=== PATIENT | female | born 1950 | race Caucasian/White ===

== ENCOUNTER 2018-07-26 11:26 | Inpatient (IN) ==
[2018-07-26 12:59] LABS: Basophils % 0.4 %; Eosinophils # 0.1 K/mcL (0.0-0.6); Eosinophils % 0.7 %; Hematocrit 35.3 % (35.3-44.9); Hemoglobin 12.2 g/dL (11.5-15.4); Immature Granulocytes % 0.4 % (0-4); Lymphocytes # 1.6 K/mcL (0.6-4.6); Lymphocytes % 16.2 %; Mean Corpuscular HGB Conc 34.6 g/dL (31.6-35.5); Mean Corpuscular Hemoglobin 31.4 pg (28.0-33.3); Monocytes # 0.8 K/mcL (0.0-1.3); Monocytes % 7.5 %; Neutrophils # 7.5 K/mcL (1.6-8.9); Platelet Count 218 K/mcL (140-400); Red Blood Count 3.88 M/mcL (3.82-4.97); Red Cell Distribution Width 13.5 % (11.5-14.5); Segmented Neutrophils % 74.8 %
[2018-07-26 13:19] LABS: BUN/Creatinine Ratio 45 (6-26); Blood Urea Nitrogen 30 mg/dL (8-23); Calcium 8.3 mg/dL (8.6-10.3); Carbon Dioxide 23 mEq/L (23-29); Chloride 108 mEq/L (98-107); Glucose 100 mg/dL (70-105); Lipase 12 Units/L (11-82); Osmolality,Calculated 290 (280-300); Potassium 4.1 mEq/L (3.5-5.1); Sodium 137 mEq/L (136-145); eGFR For Non-African Americans > 60 (> 60)
--- NOTE | 2018-07-26 13:57 | Emergency Department Note ---
Disposition Clinical Impression: Lower gastrointestinal hemorrhage Disposition: Admitted As Inpatient Condition: Fair Referrals: Xavier Alvarez DO [Primary Care Provider] - Forms: ED Satisfaction Letter Time of Disposition: 16:07 GI Bleed HPI - General Chief complaint: ED GI Bleed Stated complaint: GI Bleed Time Seen by Provider: 07/26/18 11:49 Source: patient Mode of arrival: ambulatory Limitations: no limitations Nursing Notes Reviewed: Yes Vital Signs Reviewed: Yes - History of Present Illness HPI Narrative: 67-year-old male presented emergency department with GI bleed. Patient states that she in January had a colonoscopy where they found possible precancerous lesions in the ileocecal junction. Due to this she was transferred to the surgeon Dr. Francois who is going to a partial colectomy that is planned for next week. Patient states this morning she was having a bowel movement had a normal bowel movement and afterwards her abdomen started to "churning" then she went back to the restroom and had a very large diarrhea bowel movement that had bright red blood. She had that time went to the shower was taking a shower became lightheaded said Meenak[place] knows that there was more blood coming out of her rectum. It is unsure exactly how much was said it was quite a bit and during the whole floor of the shower red. Patient says that she does feel mildly weak but otherwise feels no other pain. She has no abdominal pain showing one episode of vomiting is nonbilious nonbloody. She has never had any rectal bleeding prior to this event. Otherwise there is no other complaints including fevers, chills, nausea, headache, blurry vision, neck pain, back pain, abdominal pain, pain with urination, pain or tingling going down the arms or legs or generalized weakness. - Related Data Home Medications Medication Instructions Recorded Confirmed Clopidogrel Bisulfate [Plavix] 75 mg PO DAILY 10/26/15 07/26/18 Levothyroxine [Synthroid] 125 mcg PO QAM 10/26/15 07/26/18 Potassium Chloride [K-Tab ER] 20 meq PO BID 10/26/15 07/26/18 Ergocalciferol (VITAMIN D2) 400 unit PO DAILY 03/27/16 07/26/18 [Vitamin D] Lovastatin 10 mg PO DAILY 11/30/17 07/26/18 Losartan/HCTZ [Hyzaar 50-12.5 1 each PO DAILY 07/26/18 07/26/18 Tablet] Allergies Allergy/AdvReac Type Severity Reaction Status Date / Time No Known Allergies Allergy Verified 11/30/17 22:01 All systems ED: reviewed and negative except as stated. Review of Systems: As Per HPI Past Medical History - Past Medical History Attestation: Yes The following information was validated with the patient. Source: patient Medical history: Reports: cancer, COPD, GERD, hyperlipidemia, hypertension, thyroid disease, TIA Surgical history: Reports: , cholecystectomy, colectomy, herniorrhaphy, orthopedic, other, other Psychiatric history: Reports: no psych history DIRECTOR OF BUSINESS DEVELOPMENT history: Reports: bilateral tubal ligation - Social History Smoking Status: Current every day smoker Smokeless Tobacco Status: No Alcohol use: Reports: none Drug use: Reports: none Physical Exam - General Limitations: no limitations General appearance: alert - Head Head exam: atraumatic, normocephalic, normal inspection - Eye Eye exam: Present: normal appearance, PERRL, EOMI - ENT ENT exam: normal exam, normal oropharynx, mucous membranes moist - Neck Neck exam: Present: normal inspection, full ROM, trachea midline - Chest Chest inspection: Present: normal inspection, symmetric chest wall rise - Respiratory Respiratory exam: Present: normal lung sounds bilaterally - Cardiovascular Cardiovascular exam: Present: regular rate, normal rhythm, normal heart sounds - Abdominal Exam Abdominal exam: Present: soft, Non-Tender, normal bowel sounds. Absent: tenderness, distention, guarding, rebound, rigidity - Extremities Exam Extremities exam: Present: normal inspection, full ROM. Absent: tenderness, pe uyen edema - Back Exam Back exam: Present: normal inspection, full ROM. Absent: tenderness, CVA tenderness (R), CVA tenderness (L) - Neurological Exam Neurological exam: Present: alert, oriented X3 - Skin Skin exam: Present: warm, dry, intact, normal color Course Course Narrative: We will get basic labs including CBC, BMP as well as a lipase we will do Hemoccult. This seems to be lower GI bleed. She is not any abdominal pain so will not get any advanced imaging. Vital Signs Temperature 98.7 F 07/26/18 11:44 Pulse Rate 62 07/26/18 11:44 Respiratory Rate 20 07/26/18 11:44 Blood Pressure 106/42 07/26/18 11:44 O2 Sat by Pulse Oximetry 100 07/26/18 11:44 Temperature 98.7 F 07/26/18 11:44 Pulse Rate 66 07/26/18 14:27 Respiratory Rate 14 07/26/18 14:27 Blood Pressure 92/46 07/26/18 14:27 O2 Sat by Pulse Oximetry 99 07/26/18 14:27 Oxygen Delivery Oxygen Delivery Nasal Cannula GI Bleed - [facility] Narrative Medical decision making narrative: Patient's hemoglobin is stable at 12. She did have positive Hemoccult. All other labs are within normal minuses probably lower GI bleed. I spoke with the surgeon Dr. Francois who is supposed to do surgery on her in the next few weeks. His nurse practitioner came down and saw the patient at bedside and they recommended admitting to the hospital service and consult in them. And able move up the patient's surgery to be sooner. They are worried that this is possibly neurogenic. The patient stated to them that she did have a full syncopal event passed out. Patient is back to normal for me and she did not mention that to me. So they can do a further workup when she gets to the hospital. Patient is stable at this time. She is going to be admitted to the hospitalist service. I spoke with Dr. Zhu who agreed to admit the patient to their service. Patient is admitted in stable condition. - Medical Records Medical records reviewed: Yes I reviewed the patient's medical records. - Lab Data Lab results reviewed: Yes I reviewed the patient's lab results. Result diagrams: 07/26/18 17:16 07/26/18 12:49 Lab Results 07/26/18 07/26/18 07/26/18 Range/Units 12:49 12:49 13:50 WBC 10.1 (4.3-11.1) K/mcL RBC 3.88 (3.82-4.97) M/mcL Hgb 12.2 (11.5-15.4) g/dL Hct 35.3 (35.3-44.9) % MCV 91.0 (83.0-100.0) fL MCH 31.4 (28.0-33.3) pg MCHC 34.6 (31.6-35.5) g/dL RDW 13.5 (11.5-14.5) % Plt Count 218 (140-400) K/mcL MPV 11.0 (9.4-12.4) fL Immature Gran % 0.4 (0-4) % Seg Neutrophils % 74.8 % Lymphocytes % 16.2 % Monocytes % 7.5 % Eosinophils % 0.7 % Basophils % 0.4 % Neutrophils # 7.5 (1.6-8.9) K/mcL Lymphocytes # 1.6 (0.6-4.6) K/mcL Monocytes # 0.8 (0.0-1.3) K/mcL Eosinophils # 0.1 (0.0-0.6) K/mcL Basophils # 0.0 (0.0-0.2) K/mcL Sodium 137 (136-145) mEq/L Potassium 4.1 (3.5-5.1) mEq/L Chloride 108 H (98-107) mEq/L Carbon Dioxide 23 (23-29) mEq/L BUN 30 H (8-23) mg/dL Creatinine 0.66 (0.60-1.20) mg/dL Est GFR ( Amer) > 60 (> 60) Est GFR (Non-Af Amer) > 60 (> 60) BUN/Creatinine Ratio 45 H (6-26) Glucose 100 (70-105) mg/dL Calculated Osmolality 290 (280-300) Calcium 8.3 L (8.6-10.3) mg/dL Lipase 12 (11-82) Units/L Stool Occult Bld Scrn Positive A (Negative) - Radiology Data Radiology results reviewed: Yes I reviewed the patient's radiology results. - EKG Data EKG attestation: Yes I reviewed and interpreted this EKG. EKG results narrative: EKG done at 1240 review myself and attending shows sinus rhythm at a rate of 65, DC 169, QRS 86, QTC 402. No acute ST changes no acute T-wave changes no signs of ischemia. No signs of hypertrophy, heart strain, heart block. No WPW/Brugada/HOCM. No old EKG to compare with. Attestation Statement - Attestation Attestation: I, Robert Peña, saw this patient and my medical decision-making was reviewed with the SHRIMP BOAT CAPTAIN/PA/Advanced Practice Nurse/Resident Physician. I agree with the documented findings, disposition and treatment plan as described except to the extent set forth below. 67-year-old female presents emergency department for further evaluation of bright red blood per rectum. Patient states she was recently diagnosed with colon cancer and is scheduled to have colon resection with Dr. Francois. Patient noted having abdominal pain and had a very large bowel movement which was bright red blood's. He states she had to take a shower and became lightheaded and thinks she may have syncopized. She denied chest pain or shortness of breath. Patient does not have chest or shortness breath emergency department. Stool sample was positive for occult blood. Patient be admitted to the hospital for further care and evaluation.
--- NOTE | 2018-07-26 15:30 | General Surgery Consult Note ---
<Sylvia Langley - Last Filed: 07/26/18 15:24> Date of Encounter: 07/26/18 Time of Encounter: 15:24 Assessment and Plan (1) Colon polyp Current Visit: Yes Status: Acute Unresectable cecal polyp. plans for open ileocecectomy on 08/02/2018 Further recommendations pending primary team cares Qualifiers: Colon polyp type: unspecified Colon location: ascending Qualified Cod e(s): D12.2 - Benign neoplasm of ascending colon (2) Episode of syncope Current Visit: Yes Status: Acute Although she did have bright red blood per rectum, her hgb is normal and her description of the small amount of blood prior to the syncopal episode seems more consistent with neuro-cardiogenic syncope vs vasovagel vs hypotension; Recommend cardiovascular work-up per [facility] team prior to planned surgical intervention on with DR. Francois. Surgery has notified PAT to cancel her appointment for 07/27/2018 Qualifiers: Syncope type: unspecified Qualified Code(s): R55 - Syncope and collapse (3) Bright red blood per rectum Current Visit: Yes Status: Acute possible diverticular bleed see above supportive care and transfusions per primary team as indicated History of Present Illness Consult date: 07/26/18 (Dr. Armen Francois) Reason for consult: other Requesting physician: Arnulfo Sabillon History of present illness: Patient's past medical, surgical, social, and family history has been reviewed per the patient and updated in the electronic medical record where indicated. Surgery has been consulted for recommendations regarding G.I. bleed and plans for ileocecectomy Anay is a 67-year-old female with a pertinent past medical history of an unresectable cecal polyp who is followed Dr. Francois. She was last seen in the office on 06/19/2018 at which time she was noted to have the unresectable polyp, and was recommended to undergo and ilocceal colectomy. Her midline was fresh from the previous hernia repair at that time. Plans were made to perform the procedure through the previous midline with closure of the mesh. At that time patient requested to postpone surgery due to her 's complex Juxta renal aortic aneurysm. She was scehduled for PAT on 07/27/2018 and plans for the surgery on 08/02/2018. She presented on 07/26/2018 4 bright red blood per rectum. Patient reports that his morning she passed several clots per rectum and has had another bowel movement while in the emergency department that was bloody. Her Hemoccult is po sitive. She reports feeling "faint and weak," otherwise denies any other complaints. The patient initially reported to the ER physician, Dr. Sabillon, that she did not have a syncopal episode while in the shower, but did report to this BUDGET REPORT CLERK that she in fact "woke up" in the shower and did "pass out." She denies hitting her head. She states she "woke up on my shower chair," and there was "a lot of blood in the shower." She reports that she was in the shower, was standing, was allowing the hot water to run on her legs and then began to feel lightheaded and faint. She quickly sat herself down on her shower chair. She reports she then "woke up," and blood was "running everywhere." Past Med Surg Social Fam HX - Past Medical History Source: patient, old records reviewed Medical history: cancer, COPD, GERD, hyperlipidemia, hypertension, thyroid disease, TIA Additional medical history: Basal cell carcinoma Psychiatric history: no psych history - Past Surgical History Surgical History: , cholecystectomy, colectomy, herniorrhaphy, orthopedic, other, other Additional surgical history: colon surgery, tubal ligation. hernia repair. c section - Social History Smoking Status: Current every day smoker Smokeless Tobacco Status: No Alcohol use: none Drug use: none - Family History Father Living Status: Hx Family Cardiac Disorders: Yes ([place], CAD) Mother Living Status: Hx Family Cancer: Yes (colon cancer) Medications and Allergies RX: Clopidogrel Bisulfate [Plavix] 75 mg PO DAILY 10/26/15 [History] RX: Levothyroxine [Synthroid] 125 mcg PO QAM 10/26/15 [History] RX: Potassium Chloride [K-Tab ER] 20 meq PO BID 10/26/15 [History] Ergocalciferol (VITAMIN D2) [Vitamin D] 400 unit PO DAILY 03/27/16 [History] RX: Lovastatin 10 mg PO DAILY 11/30/17 [History] Losartan/HCTZ [Hyzaar 50-12.5 Tablet] 1 each PO DAILY 07/26/18 [History] Allergy/AdvReac Type Severity Reaction Status Date / Time No Known Allergies Allergy Verified 11/30/17 22:01 Review of Systems All systems PM: reviewed and no additional remarkable complaints except as stated All systems PM: The remainder of the systems were reviewed and are negative General Surgery Exam Initial Vital Signs Temp Pulse Resp BP Pulse Ox 98.7 F 62 20 106/42 100 07/26/18 11:44 07/26/18 11:44 07/26/18 11:44 07/26/18 11:44 07/26/18 11:44 - General physical appearance well nourished, no distress, no pain - Neck trachea midline - Respiratory other (decreased) - Cardiovascular Additional Comments: Regular rate and rhythm with occasional extra systole noted. Systolic murmur noted - Abdomen Abdomen general surgery: Present: bowel sounds present, soft, non tender - Integumentary Integumentary general surgery: Present: warm and dry - Neurologic Present: normal sensation - Musculoskeletal Present: normal posture - Psychiatric Psychiatric general surgery: Present: A&Ox3, speech is normal, memory intact Exam Initial Vital Signs Temp Pulse Resp BP Pulse Ox 98.7 F 62 20 106/42 100 07/26/18 11:44 07/26/18 11:44 07/26/18 11:44 07/26/18 11:44 07/26/18 11:44 Results - Labs 07/26/18 12:49 07/26/18 12:49 Abnormal lab results Chloride 108 mEq/L (98-107) H 07/26/18 12:49 BUN 30 mg/dL (8-23) H 07/26/18 12:49 BUN/Creatinine Ratio 45 (6-26) H 07/26/18 12:49 Calcium 8.3 mg/dL (8.6-10.3) L 07/26/18 12:49 Stool Occult Bld Scrn Positive (Negative) A 07/26/18 13:50 Diabetes panel 07/26/18 Range/Units 12:49 Sodium 137 (136-145) mEq/L Potassium 4.1 (3.5-5.1) mEq/L Chloride 108 H (98-107) mEq/L Carbon Dioxide 23 (23-29) mEq/L BUN 30 H (8-23) mg/dL Creatinine 0.66 (0.60-1.20) mg/dL Glucose 100 (70-105) mg/dL Calcium 8.3 L (8.6-10.3) mg/dL Calcium panel 07/26/18 Range/Units 12:49 Calcium 8.3 L (8.6-10.3) mg/dL Pituitary panel 07/26/18 Range/Units 12:49 Sodium 137 (136-145) mEq/L Potassium 4.1 (3.5-5.1) mEq/L Chloride 108 H (98-107) mEq/L Carbon Dioxide 23 (23-29) mEq/L BUN 30 H (8-23) mg/dL Creatinine 0.66 (0.60-1.20) mg/dL Glucose 100 (70-105) mg/dL Calcium 8.3 L (8.6-10.3) mg/dL Adrenal panel 07/26/18 Range/Units 12:49 Sodium 137 (136-145) mEq/L Potassium 4.1 (3.5-5.1) mEq/L Chloride 108 H (98-107) mEq/L Carbon Dioxide 23 (23-29) mEq/L BUN 30 H (8-23) mg/dL Creatinine 0.66 (0.60-1.20) mg/dL Glucose 100 (70-105) mg/dL Calcium 8.3 L (8.6-10.3) mg/dL All other labs normal. Consult Discharge Plan - Plan Referrals: Xavier Alvarez DO [Primary Care Provider] - <Armen Francois - Last Filed: 07/27/18 15:00> Date of Encounter: 07/26/18 Review of Systems All systems PM: The remainder of the systems were reviewed and are negative General Surgery Exam Initial Vital Signs Temp Pulse Resp BP Pulse Ox 98.7 F 62 20 106/42 100 07/26/18 11:44 07/26/18 11:44 07/26/18 11:44 07/26/18 11:44 07/26/18 11:44 Exam Initial Vital Signs Temp Pulse Resp BP Pulse Ox 98.7 F 62 20 106/42 100 07/26/18 11:44 07/26/18 11:44 07/26/18 11:44 07/26/18 11:44 07/26/18 11:44 Results - Labs 07/27/18 03:43 07/27/18 03:43 Abnormal lab results RBC 3.46 M/mcL (3.82-4.97) L 07/27/18 03:43 Hgb 10.9 g/dL (11.5-15.4) L 07/27/18 03:43 Hct 31.7 % (35.3-44.9) L 07/27/18 03:43 PT 12.6 Seconds (9.4-12.1) H 07/27/18 03:43 Chloride 110 mEq/L (98-107) H 07/27/18 03:43 Creatinine 0.56 mg/dL (0.60-1.20) L 07/27/18 03:43 BUN/Creatinine Ratio 38 (6-26) H 07/27/18 03:43 Calcium 8.2 mg/dL (8.6-10.3) L 07/27/18 03:43 Stool Occult Bld Scrn Positive (Negative) A 07/26/18 13:50 Diabetes panel 07/27/18 Range/Units 03:43 Sodium 139 (136-145) mEq/L Potassium 3.5 (3.5-5.1) mEq/L Chloride 110 H (98-107) mEq/L Carbon Dioxide 24 (23-29) mEq/L BUN 21 (8-23) mg/dL Creatinine 0.56 L (0.60-1.20) mg/dL Glucose 83 (70-105) mg/dL Calcium 8.2 L (8.6-10.3) mg/dL Calcium panel 07/27/18 Range/Units 03:43 Calcium 8.2 L (8.6-10.3) mg/dL Pituitary panel 07/27/18 Range/Units 03:43 Sodium 139 (136-145) mEq/L Potassium 3.5 (3.5-5.1) mEq/L Chloride 110 H (98-107) mEq/L Carbon Dioxide 24 (23-29) mEq/L BUN 21 (8-23) mg/dL Creatinine 0.56 L (0.60-1.20) mg/dL Glucose 83 (70-105) mg/dL Calcium 8.2 L (8.6-10.3) mg/dL Adrenal panel 07/27/18 Range/Units 03:43 Sodium 139 (136-145) mEq/L Potassium 3.5 (3.5-5.1) mEq/L Chloride 110 H (98-107) mEq/L Carbon Dioxide 24 (23-29) mEq/L BUN 21 (8-23) mg/dL Creatinine 0.56 L (0.60-1.20) mg/dL Glucose 83 (70-105) mg/dL Calcium 8.2 L (8.6-10.3) mg/dL All other labs normal. - Attending Attestation I have personally performed a face to face evaluation on this patient. I have reviewed and agree with the care plan. History and Exam by me shows: The patient is seen and evaluated. A colonoscopy report from November of last year failed to demonstrate any diverticular disease. An unresectable polyp in the cecum was reported. Workup for syncope is certainly indicated, if this is negative resection would be appropriate. We will follow along with you. Armen Francois MD FACS
[2018-07-26] MEDS ORDERED: Naloxone 0.4 MG/ML INJ IVP PRN (16:48)
[2018-07-26] MEDS ORDERED: Acetaminophen 325 MG TABLET PO PRN (16:48)
[2018-07-26] MEDS ORDERED: Ondansetron 4 MG/2 ML VIAL IVP PRN (16:53)
--- NOTE | 2018-07-26 17:00 | Internal Med History&Physical ---
Date of Encounter: 07/26/18 Time of Encounter: 16:00 Internal Medicine - H&P: HPI Chief complaint: Rectal bleeding Admitted From: Home Plans for Post Hospital Care: Home History of present illness: Ms. Perez is a 67 year old female present to ER for rectal bleeding. Past medical history is significant for hypertension, possible CVA on Plavix. Hx of colectomy 18 years ago. Patient had a colonoscopy in last November which suspect precancer lesion on small bowel and colon junction and plan for surgery in this month by Dr. Francois. This morning around 8 AM, patient had a large amount of bloody stool. It was dark blood clot. Around 10 AM, patient took shower and felt dizzy, then lost consciousness and fell in bathtub. Patient's get into bathroom immediately are heard the sound. Patient denies any pain when she wake-up. Patient has several vomiting, patient denies coffee ground vomiting or blood in it. Patient also has another 2 episodes of rectal bleeding with dark blood later. Patient was sent to emergency room for further evaluation. In the management, Hgb 12.2, baseline around 16.0. Surgical consult was called by emergency room. Patient was admitted for rectal bleeding and syncope. Past Med Surg Social Fam HX - Past Medical History Medical history: cancer, COPD, GERD, hyperlipidemia, hypertension, thyroid disease, TIA Additional medical history: Basal cell carcinoma Psychiatric history: no psych history - Past Surgical History Surgical History: , cholecystectomy, colectomy, herniorrhaphy, orthopedic, other, other Additional surgical history: colon surgery, tubal ligation. hernia repair. c section - Social History Smoking Status: Current every day smoker Smokeless Tobacco Status: No Alcohol use: none Drug use: none - Family History Mother Living Status: Hx Family Cancer: Yes (colon cancer) Father Living Status: Hx Family Cardiac Disorders: Yes ([place], CAD) Internal Medicine - H&P: Meds Clopidogrel Bisulfate [Plavix] 75 mg PO DAILY 10/26/15 [History] Levothyroxine [Synthroid] 125 mcg PO QAM 10/26/15 [History] Potassium Chloride [K-Tab ER] 20 meq PO BID 10/26/15 [History] Ergocalciferol (VITAMIN D2) [Vitamin D] 400 unit PO DAILY 03/27/16 [History] Losartan/Hydrochlorothiazide [Hyzaar 100-25 Tablet] 1 each PO DAILY 04/08/16 [History] Ciprofloxacin HCl [Cipro] 250 mg PO DAILY 11/30/17 [History] Lovastatin 10 mg PO DAILY 11/30/17 [History] Allergy/AdvReac Type Severity Reaction Status Date / Time No Known Allergies Allergy Verified 11/30/17 22:01 All Systems PM: A 10-system review of systems was performed and is negative for pertinent findings except as documented above in the HPI. - Constitutional Vitals: Temp Pulse Resp BP Pulse Ox 98.7 F 64 13 96/56 100 07/26/18 11:44 07/26/18 16:08 07/26/18 16:08 07/26/18 16:08 07/26/18 16:08 Exam: Pt is AAO x 3, in NAD, feels tired HEENT: NC/AT, PERRL Neck: Supple, no JVD, no LAD Lungs: CTA b/l Heart: S1S2, RRR Abd: Soft, mild tenderness on RLQ, BS present Ext: ROM wnl, no pedal edema Neuro: No focal deficit Internal Med - H&P Results - Labs CBC & Chem 7: 07/26/18 12:49 07/26/18 12:49 Labs: Short CBC 07/26/18 Range/Units 12:49 WBC 10.1 (4.3-11.1) K/mcL Hgb 12.2 (11.5-15.4) g/dL Hct 35.3 (35.3-44.9) % Plt Count 218 (140-400) K/mcL Neutrophils # 7.5 (1.6-8.9) K/mcL BMP 07/26/18 12:49 Sodium 137 Potassium 4.1 Chloride 108 H Carbon Dioxide 23 BUN 30 H Creatinine 0.66 Glucose 100 Calcium 8.3 L - EKG Data -: EKG Interpreted by Myself EKG shows normal: sinus rhythm Rate: normal - Assessment and plan (1) HTN (hypertension) Current Visit: No Status: Chronic Assessment and plan: BP is not high at this point. Suspect lower GI bleeding. Will hold hypertensive medications Qualifiers: Hypertension type: essential hypertension Qualified Code(s): I10 - Essential (primary) hypertension (2) DVT prophylaxis Current Visit: No Status: Acute Assessment and plan: EPCDs (3) Lower gastrointestinal hemorrhage Current Visit: Yes Status: Acute Assessment and plan: Patient has history of colectomy. Has recent colonoscopy shows possible precancer lesion. Has dark bloody stool this morning with dizziness and syncope. - CT abd/pelvis - Place patient on close monitoring, vitals every 30 minutes - IV PPI - IVF - H&H every 6 hours, transfuse as needed - Surgical consult was called by emergency room - Place patient on clear liquid diet at this point, further diet order per surgical consult recommendation (4) Episode of syncope Current Visit: Yes Status: Acute Assessment and plan: Most likely due to lower GI bleeding caused hypovolemic status. Will also rule out other cardio-neuro conditions. - CT head and C-spine - Place patient on continuous cardiac monitoring to rule out arrhythmia - Echo and duplex carotid - Orthostatic vitals - If patient H/H keep dropping, which will further confirmed that it is GI bleed caused syncope, no need to wait above tests result to proceed for emergent surgery. Qualifiers: Syncope type: unspecified Qualified Code(s): R55 - Syncope and collapse - Time Spent With Patient Total time spent is greater than 50% in coordination of care (as documented) at patient's floor/unit and/or counseling patient: 40 min Greater than 35 minutes
[2018-07-26] MEDS: Pantoprazole 40 MG VIAL IVP SCH (17:15)
[2018-07-26] MEDS: 0.9 % Sodium Chloride 1,000 ML IVC SCH (17:15)
[2018-07-26 17:33] LABS: Hematocrit 33.2 % (35.3-44.9); Hemoglobin 11.3 g/dL (11.5-15.4)
[2018-07-26 23:12] LABS: Hematocrit 29.4 % (35.3-44.9)
[2018-07-27] MEDS: 0.9 % Sodium Chloride 1,000 ML IVC SCH (04:08)
[2018-07-27 04:12] LABS: Basophils % 0.5 %; Eosinophils # 0.2 K/mcL (0.0-0.6); Eosinophils % 1.8 %; Hematocrit 31.7 % (35.3-44.9); Hemoglobin 10.9 g/dL (11.5-15.4); Immature Granulocytes % 0.2 % (0-4); Lymphocytes % 36.5 %; Mean Corpuscular HGB Conc 34.4 g/dL (31.6-35.5); Mean Corpuscular Hemoglobin 31.5 pg (28.0-33.3); Mean Corpuscular Volume 91.6 fL (83.0-100.0); Monocytes # 0.7 K/mcL (0.0-1.3); Neutrophils # 4.4 K/mcL (1.6-8.9); Platelet Count 212 K/mcL (140-400); Red Blood Count 3.46 M/mcL (3.82-4.97); Red Cell Distribution Width 13.3 % (11.5-14.5)
[2018-07-27 04:19] LABS: INR 1.1; Prothrombin Time 12.6 Seconds (9.4-12.1)
[2018-07-27 04:22] LABS: BUN/Creatinine Ratio 38 (6-26); Blood Urea Nitrogen 21 mg/dL (8-23); Calcium 8.2 mg/dL (8.6-10.3); Carbon Dioxide 24 mEq/L (23-29); Chloride 110 mEq/L (98-107); Glucose 83 mg/dL (70-105); Magnesium 1.7 mg/dL (1.6-2.6); Osmolality,Calculated 290 (280-300); Potassium 3.5 mEq/L (3.5-5.1); Sodium 139 mEq/L (136-145); eGFR For Non-African Americans > 60 (> 60)
[2018-07-27] MEDS: Pantoprazole 40 MG VIAL IVP SCH ×2 (06:18→18:29)
--- NOTE | 2018-07-27 10:22 | General Surgery Progress Note ---
<Tiana Haddad - Last Filed: 07/27/18 10:20> Date of Encounter: 07/27/18 Time of Encounter: 10:00 - Assessment and Plan (1) Colon polyp Current Visit: Yes Status: Acute Unresectable cecal polyp. Plans for open ileocecectomy on 08/02/2018 Dr. Francois ok with moving up surgery date to Sunday 07/30 as long as medically clear for surgery. Patient also prefers surgery sooner. May bowel prep over . Qualifiers: Colon polyp type: unspecified Colon location: ascending Qualified Code(s): D12.2 - Benign neoplasm of ascending colon (2) Episode of syncope Current Visit: Yes Status: Acute Although she did have bright red blood per rectum, her hgb is normal and her description of the small amount of blood prior to the syncopal episode seems more consistent with neuro-cardiogenic syncope vs vasovagal vs hypotension; Recommend cardiovascular work-up per priry team prior to planned surgical intervention on with DR. Francois. Surgery has notified PAT to cancel her appointment for 07/27/2018 Qualifiers: Syncope type: unspecified Qualified Code(s): R55 - Syncope and collapse (3) Bright red blood per rectum Current Visit: Yes Status: Acute Possible diverticular bleed See above Supportive care and transfusions per primary team as indicated Subjective Narrative: Patient seen and examined. No acute events overnight. Patient is resting comfortably in bed. Patient states she feels fine. States she hasnt had any bowel movements or rectal blood today. Patient denies abdominal pain, nausea, or fever. Denies any other complaints. Patient indicates preference to stay in [facility] over weekend for earlier scheduled surgery on Sunday 07/30. Objective Vital Signs - Last 8 Hours Temp Pulse Resp BP Pulse Ox 07/27/18 06:36 98.2 F 64 15 105/50 95 07/27/18 03:35 98.2 F 70 15 105/64 96 Intake and Output 07/26/18 07/27/18 07/27/18 23:59 07:59 15:59 Intake Total 1060 / 1060 0 / 0 Output Total 700 / 700 500 / 500 Balance 360 / 360 -500 / -500 Intake: IV Fluids 1000 / 1000 0.9 % Sodium Chloride 1,000 ML 1000 / 1000 @ 100 mls/hr IVC .Q10H [facility] Rx#: [id number] Oral 60 / 60 0 / 0 Output: Urine 700 / 700 500 / 500 Other: Weight 80.8 kg 80.5 kg Patient Weight 07/27/18 23:59 Weight 80.5 kg - Additional Exam VITAL SIGNS: Reviewed. See [facility] GENERAL: In no apparent distress. HEENT: Normocephalic, atraumatic, pupils are equal and reactive, extraocular motions intact, oral mucosa is pink and dry. CHEST/RESPIRATORY: The thorax is free from signs of trauma. Lung sounds: clear to auscultation, normal respiratory effort CARDIAC: Regular rate and rhythm. Normal S1 and S2, without murmurs, gallops, or rubs. VASCULAR: No Edema. ABDOMEN: Soft, mild tenderness at infraumbilical region, bowel sounds present, nondistended MUSCULOSKELETAL: Good range of motion of all major joints. Extremities without clubbing, cyanosis or edema. NEUROLOGIC EXAM: Alert and oriented x 3. Speech normal. Follows commands. PSYCHIATRIC: Mood normal. SKIN: No rash or lesions. - Labs 07/27/18 03:43 07/27/18 03:43 Diabetes panel 07/26/18 07/27/18 Range/Units 12:49 03:43 Sodium 137 139 (136-145) mEq/L Potassium 4.1 3.5 (3.5-5.1) mEq/L Chloride 108 H 110 H (98-107) mEq/L Carbon Dioxide 23 24 (23-29) mEq/L BUN 30 H 21 (8-23) mg/dL Creatinine 0.66 0.56 L (0.60-1.20) mg/dL Glucose 100 83 (70-105) mg/dL Calcium 8.3 L 8.2 L (8.6-10.3) mg/dL Calcium panel 07/26/18 07/27/18 Range/Units 12:49 03:43 Calcium 8.3 L 8.2 L (8.6-10.3) mg/dL Pituitary panel 07/26/18 07/27/18 Range/Units 12:49 03:43 Sodium 137 139 (136-145) mEq/L Potassium 4.1 3.5 (3.5-5.1) mEq/L Chloride 108 H 110 H (98-107) mEq/L Carbon Dioxide 23 24 (23-29) mEq/L BUN 30 H 21 (8-23) mg/dL Creatinine 0.66 0.56 L (0.60-1.20) mg/dL Glucose 100 83 (70-105) mg/dL Calcium 8.3 L 8.2 L (8.6-10.3) mg/dL Adrenal panel 07/26/18 07/27/18 Range/Units 12:49 03:43 Sodium 137 139 (136-145) mEq/L Potassium 4.1 3.5 (3.5-5.1) mEq/L Chloride 108 H 110 H (98-107) mEq/L Carbon Dioxide 23 24 (23-29) mEq/L BUN 30 H 21 (8-23) mg/dL Creatinine 0.66 0.56 L (0.60-1.20) mg/dL Glucose 100 83 (70-105) mg/dL Calcium 8.3 L 8.2 L (8.6-10.3) mg/dL Consult Discharge Plan - Plan Referrals: Xavier Daly DO [Primary Care Provider] - <Armen Francois - Last Filed: 07/27/18 14:54> Date of Encounter: 07/27/18 Objective Vital Signs - Last 8 Hours Temp Pulse Resp BP Pulse Ox 07/27/18 14:05 98.2 F 64 15 101/61 97 07/27/18 10:41 98.2 F 64 15 101/47 96 Intake and Output 07/26/18 07/27/18 07/27/18 23:59 07:59 15:59 Intake Total 1060 / 1060 0 / 0 720 / 720 Output Total 700 / 700 500 / 500 800 / 800 Balance 360 / 360 -500 / -500 -80 / -80 Intake: IV Fluids 1000 / 1000 0.9 % Sodium Chloride 1,000 ML 1000 / 1000 @ 100 mls/hr IVC .Q10H [facility] Rx#: [id number] Oral 60 / 60 0 / 0 720 / 720 Output: Urine 700 / 700 500 / 500 800 / 800 Other: Meal CLEARS Weight 80.8 kg 80.5 kg Patient Weight 07/27/18 23:59 Weight 80.5 kg - Labs 07/27/18 03:43 07/27/18 03:43 Diabetes panel 07/27/18 Range/Units 03:43 Sodium 139 (136-145) mEq/L Potassium 3.5 (3.5-5.1) mEq/L Chloride 110 H (98-107) mEq/L Carbon Dioxide 24 (23-29) mEq/L BUN 21 (8-23) mg/dL Creatinine 0.56 L (0.60-1.20) mg/dL Glucose 83 (70-105) mg/dL Calcium 8.2 L (8.6-10.3) mg/dL Calcium panel 07/27/18 Range/Units 03:43 Calcium 8.2 L (8.6-10.3) mg/dL Pituitary panel 07/27/18 Range/Units 03:43 Sodium 139 (136-145) mEq/L Potassium 3.5 (3.5-5.1) mEq/L Chloride 110 H (98-107) mEq/L Carbon Dioxide 24 (23-29) mEq/L BUN 21 (8-23) mg/dL Creatinine 0.56 L (0.60-1.20) mg/dL Glucose 83 (70-105) mg/dL Calcium 8.2 L (8.6-10.3) mg/dL Adrenal panel 07/27/18 Range/Units 03:43 Sodium 139 (136-145) mEq/L Potassium 3.5 (3.5-5.1) mEq/L Chloride 110 H (98-107) mEq/L Carbon Dioxide 24 (23-29) mEq/L BUN 21 (8-23) mg/dL Creatinine 0.56 L (0.60-1.20) mg/dL Glucose 83 (70-105) mg/dL Calcium 8.2 L (8.6-10.3) mg/dL - Attending Attestation I examined this patient and my medical decision-making was reviewed with the Resident Physician. I agree with the documented findings, disposition and treatment plan as described except to the extent set forth below. The patient is seen and evaluated today. The patient does have unresectable cec al polyp. The patient has also had a previous segmental resection of the colon. Her mother had colon cancer. During a colonoscopy in November [address] daly, no diverticuli were noted. It is reasonable to proceed with resection of the cecum in this clinical setting. We can proceed with ileocecectomy on Monday after appropriate bowel preparation Armen Francois MD FACS
--- NOTE | 2018-07-27 15:11 | Internal Med Progress Note ---
Hospitalist Progress Note - Encounter Date of Encounter: 07/27/18 Time of Encounter: 09:00 - Subjective Interval History: Patient laying on bed comfortably. Still feels tired and weak. Denies dizziness. No further bloody bowel movement overnight. Vitals are stable. - Exam Vitals: Temp Pulse Resp BP Pulse Ox 98.2 F 64 15 101/61 97 07/27/18 14:05 07/27/18 14:05 07/27/18 14:05 07/27/18 14:05 07/27/18 14:05 Exam: Pt is AAO x 3, in NAD, feels tired HEENT: NC/AT, PERRL Neck: Supple, no JVD, no LAD Lungs: CTA b/l Heart: S1S2, RRR Abd: Soft, mild tenderness on RLQ, BS present Ext: ROM wnl, no pedal edema Neuro: No focal deficit - Assessment and Plan (1) HTN (hypertension) Current Visit: No Status: Chronic Assessment and Plan: BP is not high at this point. Suspect lower GI bleeding. Will hold hypertensive medications (2) DVT prophylaxis Current Visit: No Status: Acute Assessment and Plan: EPCDs (3) Lower gastrointestinal hemorrhage Current Visit: Yes Status: Acute Assessment and Plan: Patient has history of colectomy. Has recent colonoscopy shows possible precancer lesion. Has dark bloody stool with dizziness and syncope. - CT abd/pelvis unremarkable - Cont close monitoring, vitals every 30 minutes - IV PPI - H&H slightly dropped, cont monitoring - Surgical consult was called by emergency room, input appreciated. Plan for surgery on Monday - On clear liquid diet (4) Episode of syncope Current Visit: Yes Status: Acute Assessment and Plan: Most likely due to lower GI bleeding caused hypovolemic status. Will also rule out other cardio-neuro conditions. - CT head and C-spine unremarkable - Place patient on continuous cardiac monitoring to rule out arrhythmia, so far no arrhythmia identified - Echo unremarkable - Duplex carotid shows rt distal ICA 60-79% stenosis, suspect it is the reason for syncope, will consult vascular surgery - Orthostatic vitals DVT Prophylaxis: EPCDs - Time Spent with Patient Total time spent is greater than 50% in coordination of care (as documented) at patient's floor/unit and/or counseling patient: 30 min 25 - 35 minutes Plan of Care Discussed with: patient Internal Medicine: Result - Labs CBC & Chem 7: 07/27/18 03:43 07/27/18 03:43 Labs: Short CBC 07/26/18 07/26/18 07/27/18 Range/Units 17:16 22:57 03:43 WBC 8.2 (4.3-11.1) K/mcL Hgb 11.3 L 10.0 L 10.9 L (11.5-15.4) g/dL Hct 33.2 L 29.4 L 31.7 L (35.3-44.9) % Plt Count 212 (140-400) K/mcL Neutrophils # 4.4 (1.6-8.9) K/mcL BMP 07/27/18 03:43 Sodium 139 Potassium 3.5 Chloride 110 H Carbon Dioxide 24 BUN 21 Creatinine 0.56 L Glucose 83 Calcium 8.2 L - ABG Interpretation ABG results: PT/INR, D-dimer PT 12.6 Seconds (9.4-12.1) H 07/27/18 03:43 - Impressions Impressions Abdomen/Pelvis CT 07/26/18 16:46 IMPRESSION: No acute intra-abdominopelvic abnormality. D/ / Carmelita Fields Cha, MD / Carmelita Fields Cha, MD Interpreting Provider: Carmelita Fields Cha, MD Cervical Spine CT 07/26/18 16:46 IMPRESSION: No acute intracranial abnormality. No acute abnormality of the cervical spine. There are few foci of nonspecific ground-glass opacity within the visualize upper lungs, possibly infectious or inflammatory. Edema could have this appearance as well. D/ / Carmelita Fields Cha, MD / Carmelita Fields Cha, MD Interpreting Provider: Carmelita Fields Cha, MD Head CT 07/26/18 16:46 IMPRESSION: No acute intracranial abnormality. No acute abnormality of the cervical spine. There are few foci of nonspecific ground-glass opacity within the visualize upper lungs, possibly infectious or inflammatory. Edema could have this appearance as well. D/ / Carmelita Fields Cha, MD / Carmelita Fields Cha, MD Interpreting Provider: Carmelita Fields Cha, MD Echocardiogram 07/27/18 08:00 Impressions: LVEF 65-70%. Normal LV chamber size and function. Basal sigmoid septum. Normal right ventricular structure and function. Mild tricuspid regurgitation. No pulmonary hypertension. Left Ventricular Wall Motion: Rest Echo Findings All wall segments showed normal motion. Findings: Study Quality * Technically adequate exam. ECG Findings * Normal sinus rhythm. Left Ventricle * LVEF 65-70%. * Normal LV chamber size and function. * Basal sigmoid septum. * Normal left ventricular diastolic function. Right Ventricle * Normal right ventricular structure and function. Left Atrium * Normal left atrial size. Right Atrium * Normal right atrial size. Interatrial Septum * Interatrial septum not well evaluated. * No evidence of PFO by color Doppler. Aortic Valve * Aortic valve not well visualized. * No aortic stenosis. * No aortic regurgitation. Mitral Valve * Mild mitral annular calcification * Trace mitral regurgitation. * No mitral stenosis. Tricuspid Valve * Normal tricuspid valve structure. * No tricuspid stenosis. * Mild tricuspid regurgitation. * Estimated RVSP is 22 mmHg. * Estimated RA pressure is 3 mmHg. * No pulmonary hypertension. Pulmonic Valve * Pulmonic valve is not well visualized. * No pulmonic stenosis. * No pulmonic regurgitation. Aorta * Normally sized aortic root. Pericardium * The pericardium appears normal. IVC * Normal IVC dimensions and inspiratory collapse. Consult Discharge Plan - Plan Referrals: Xavier Alvarez DO [Primary Care Provider] - (1) HTN (hypertension) Qualifiers: Hypertension type: essential hypertension Qualified Code(s): I10 - Essential (primary) hypertension (4) Episode of syncope Qualifiers: Syncope type: unspecified Qualified Code(s): R55 - Syncope and collapse
--- NOTE | 2018-07-27 17:41 | Event Note ---
Date of Encounter: 07/27/18 Time of Encounter: 17:40 I spoke with the patient again this afternoon. She has a known unresectable polyp in the cecum. Her colonoscopy from November failed to demonstrate any other suspected areas of bleeding. I think it is completely reasonable to plan a diagnostic colonoscopy to confirm that there are no other bleeding areas identified in the colon and to proceed with ileocecectomy. Bowel prep for Monday in anticipation of Monday surgery. I have obtained a surgical consent. The patient understands risks and benefits and wishes to proceed.
--- NOTE | 2018-07-27 21:51 | Vascular/Endovasc Consult Note ---
Date of Encounter: 07/27/18 Time of Encounter: 21:10 Assessment and Plan (1) Carotid stenosis, right Current Visit: Yes Status: Chronic The pathophysiology and natural history of carotid stenosis was discussed the patient and all questions were answered. The patient reports an episode of syncope which occurred simultaneously to gastrointestinal hemorrhage. The patient denies any symptoms of CVA, TIA or amaurosis fugax. Her neurologic exam is intact. Her carotid duplex reveals a 60-79% right internal carotid artery distal stenosis. Velocities at the lower end of the range. Her symptoms of syncope are unlikely related to her carotid stenosis. At this time medical therapy is recommended. The patient takes Plavix but his been held due to her gastric intestinal bleeding. She will resume aspirin and/or Plavix when the risks of hemorrhage resolve. She will follow-up in vascular clinic in 6 months with repeat carotid duplex. She was advised to seek immediate medical attention for any signs or symptoms of CVA, TIA or amaurosis fugax. (2) HTN (hypertension) Current Visit: No Status: Chronic Qualifiers: Hypertension type: essential hypertension Qualified Code(s): I10 - Essential (primary) hypertension (3) Lower gastrointestinal hemorrhage Current Visit: Yes Status: Acute - History of Present Illness Consult date: 07/27/18 Requesting physician: Marybel Sanchez Consult reason: Carotid stenosis Chief complaint: Syncope History of present illness: Ms. Perez is a 67 year old female with a history of hypertension, hyperlipidemia and rectal bleeding. The patient was home recently when she developed acute lower intestinal bleeding. The patient reports that she began to feel lightheaded, vomited and lost consciousness. She is transported to [facility]. She is alert and oriented on admission and has remained hemodynamically stable since admission. As part of her evaluation she underwent a carotid duplex study which revealed significant carotid stenosis. Vascular surgery was counseled for further evaluation. The patient denies symptoms of CVA, TIA or amaurosis fugax. She denies headaches, dizziness and/or visual disturbances. She denies any other episodes of syncope or presyncope. She denies recurrent symptoms since admission. She denies chest pain or short ness of breath. Past Med Surg Social Fam HX - Past Medical History Medical history: cancer, COPD, GERD, hyperlipidemia, hypertension, thyroid disease, TIA Additional medical history: Lip cancer, patient states she has not had a TIA Psychiatric history: no psych history - Past Surgical History Surgical History: , cholecystectomy, colectomy, herniorrhaphy, orthopedic, other, other Additional surgical history: colon surgery, tubal ligation. hernia repair. c section - Social History Smoking Status: Current every day smoker Packs per day: <1 Smokeless Tobacco Status: No Alcohol use: none Drug use: none - Family History Mother Living Status: Hx Family Cancer: Yes (colon cancer) Father Living Status: Hx Family Cardiac Disorders: Yes ([place], CAD) Medications and Allergies Clopidogrel Bisulfate [Plavix] 75 mg PO DAILY 10/26/15 [History] Levothyroxine [Synthroid] 125 mcg PO QAM 10/26/15 [History] Potassium Chloride [K-Tab ER] 20 meq PO BID 10/26/15 [History] Ergocalciferol (VITAMIN D2) [Vitamin D] 400 unit PO DAILY 03/27/16 [History] Lovastatin 10 mg PO DAILY 11/30/17 [History] Losartan/HCTZ [Hyzaar 50-12.5 Tablet] 1 each PO DAILY 07/26/18 [History] Allergy/AdvReac Type Severity Reaction Status Date / Time No Known Allergies Allergy Verified 11/30/17 22:01 All Systems Review: The remainder of the systems were reviewed and are negative - Constitutional Constitutional: no chills, no fever(s) - EENT Eyes: no blurred vision, no loss of vision - Cardiovascular Cardiovascular: no chest pain at rest, no dyspnea at rest - Gastrointestinal Gastrointestinal: melena, no abdominal pain - Neurological Neurological: syncope, no abnormal speech, no dizziness, no focal weakness, no numbness Exam Vital Signs, Last 4 Hours Temp Pulse Resp BP Pulse Ox 07/27/18 19:08 98.8 F 68 15 104/58 98 General: Present: Conversant, No Apparent Distress HEENT: Present: Atraumatic, Normocephaly Neck: Absent: JVD, Lymphadenopathy, Left Carotid bruit, Right Carotid bruit Cardiac: Present: Reg Rate and Rhythm, Normal S1 and S2 Lungs: Present: Normal Breath Sounds, No Wheeze, Rales, Rhonchi Neuro: Present: Alert and responsive, No focal deficits noted, Motor nerves grossly intact, Sensory nerves grossly intact Abdomen: Present: Soft, Non-tender. Absent: Masses Vascular: Present: Normal capillary refill. Absent: Cyanosis, Edema Skin: Present: No rashes noted on visualized skin Consult Discharge Plan - Plan Referrals: Xavier Alvarez DO [Primary Care Provider] -
[2018-07-27 22:32] LABS: Hematocrit 28.3 % (35.3-44.9); Hemoglobin 9.6 g/dL (11.5-15.4)
[2018-07-28] MEDS ORDERED: *HR* Promethazine 25 MG/ML VIAL IVP PRN (02:52)
[2018-07-28] MEDS: Pantoprazole 40 MG in 0.9 % Sodium Chloride Mini Bag 100 ML IVC SCH ×5 (03:20→22:59)
[2018-07-28] MEDS ORDERED: 0.9 % Sodium Chloride 1,000 ML ONE ×3 (03:24→13:51)
[2018-07-28 03:35] LABS: Basophils % 0.3 %; Eosinophils # 0.2 K/mcL (0.0-0.6); Eosinophils % 1.7 %; Hematocrit 23.2 % (35.3-44.9); Immature Granulocytes % 0.4 % (0-4); Lymphocytes # 3.6 K/mcL (0.6-4.6); Mean Corpuscular HGB Conc 34.5 g/dL (31.6-35.5); Mean Corpuscular Hemoglobin 31.6 pg (28.0-33.3); Mean Corpuscular Volume 91.7 fL (83.0-100.0); Mean Platelet Volume 11.6 fL (9.4-12.4); Monocytes # 0.7 K/mcL (0.0-1.3); Neutrophils # 4.6 K/mcL (1.6-8.9); Platelet Count 204 K/mcL (140-400); Red Blood Count 2.53 M/mcL (3.82-4.97); Red Cell Distribution Width 13.2 % (11.5-14.5); Segmented Neutrophils % 50.6 %
[2018-07-28] MEDS ORDERED: 0.9 % Sodium Chloride 250 ML ONE (03:37)
[2018-07-28 03:45] LABS: BUN/Creatinine Ratio 42 (6-26); Blood Urea Nitrogen 26 mg/dL (8-23); Calcium 8.1 mg/dL (8.6-10.3); Carbon Dioxide 23 mEq/L (23-29); Chloride 109 mEq/L (98-107); Glucose 107 mg/dL (70-105); Osmolality,Calculated 291 (280-300); Potassium 3.4 mEq/L (3.5-5.1); Sodium 138 mEq/L (136-145); eGFR For Non-African Americans > 60 (> 60)
[2018-07-28] MEDS ORDERED: Isovue-370 500 ML BOTTLE IVP ONE ×2 (03:49→03:51)
--- NOTE | 2018-07-28 04:05 | Event Note ---
Date of Encounter: 07/27/18 Time of Encounter: 21:54 Alerted by pts. nurse EMILY Matthews that the pt had 3 small bloody bowel movements since 19:00. Last BP 104/58, HR 68. Hgb on 07/27 a.m. 10.9 at 03:43. I ordered a stat H/H which showed Hgb of 9.6 when resulted at 22:19. I ordered a stat Type and Screen at 22:54. While on 3A seeing another pt., pts. nurse wanted me to see pt. d/t pts. report of nausea. Went to see pt. immediately who was laying in bed. Pt. appeared pale but was conversational. Pt. reported Dr. Francois removed approx. 20 inches of her colon 18 years ago[address] Pt. stated Dr. Francois saw her today and plan was for possible bowel surgery. Went to see pts. BM in toilet which was dark blood in color w/small clots. Repeat stat H/H ordered which showed Hgb 8.0 at 03:06. Protonix drip ordered at 03:00. IVP Phenergan ordered for current nausea at 02:52. Reviewed pts. chart which showed CT of the abdomen/pelvis w/o contrast on 07/26 which showed bowel showing normal course and caliber w/o suspected wall thickening. Normal appendix. Few scattered colonic diverticula w/o evidence of acute inflammation. Overall impression: no acute intra- abdominopelvic abnormality. While in ED [facility], I received page to come to pts. room stat at 03:23. En route, Rapid Response called. When arrived, pt. diaphoretic, SOB, reporting abdominal pain, and had bloody stool in her underwear. Rapid Response team actively working on pt. and pt. intubated. Blood Bank called and told to send up two units of O negative PRBCs (negative antibody screen) STAT. STAT CT angio of the abdomen/pelvis ordered. Dr. Vinay flores who is conceptor for surgery. Informed her of the situation and current Rapid Response. Recommendation for stat coags and order for additional units of PRBCs. Called Blood Bank and 3 additional units of PRBCs ordered. Dr. Mclean wishes to be called immediately when CT angio results available. Pt. to be transferred to ICU bed [address] angio. CTA results showed no evidence of GI hemorrhage. Results called to Dr. Mclean who wished to know sensitivity of CTA versus Tagged RBC study. Also wished to know if NG tube placed and if any blood present. Verified w/ICU that NG tube placed and negative for blood currently. Discussed Dr. Mclean's sensitivity concern w/Dr. Alycia Lopez who read the CTA results w/recommendation to order Tagged RBC Study. NM GI Bleeding Study ordered STAT and Radiology called to have study done LEANDER. Originally pt. was to be taken at noon. Plan is to now have study done at 07:00. Dr. Mclean notified of change. Dr. Mclean wishes to know results as soon as resulted.
[2018-07-28] MEDS ORDERED: 0.9 % Sodium Chloride 500 ML ONE (05:12)
[2018-07-28] MEDS: FentaNYL (PF) 1,000 MCG in 0.9 % Sodium Chloride 80 ML IVC SCH ×3 (05:24→22:58)
[2018-07-28 05:36] LABS: Basophils % 0.3 %; Eosinophils # 0.1 K/mcL (0.0-0.6); Eosinophils % 0.9 %; Hematocrit 24.8 % (35.3-44.9); Hemoglobin 8.3 g/dL (11.5-15.4); Immature Granulocytes % 0.6 % (0-4); Lymphocytes # 1.5 K/mcL (0.6-4.6); Lymphocytes % 14.4 %; Mean Corpuscular HGB Conc 33.5 g/dL (31.6-35.5); Mean Corpuscular Hemoglobin 31.3 pg (28.0-33.3); Mean Corpuscular Volume 93.6 fL (83.0-100.0); Mean Platelet Volume 11.2 fL (9.4-12.4); Monocytes # 0.7 K/mcL (0.0-1.3); Monocytes % 6.8 %; Neutrophils # 7.8 K/mcL (1.6-8.9); Platelet Count 154 K/mcL (140-400); Red Blood Count 2.65 M/mcL (3.82-4.97); Red Cell Distribution Width 13.5 % (11.5-14.5)
[2018-07-28 05:43] LABS: INR 1.2; Prothrombin Time 13.5 Seconds (9.4-12.1)
[2018-07-28 05:46] LABS: Activated Partial Thrombo Time 28.5 Seconds (26.0-36.0)
[2018-07-28 05:53] LABS: ABG Base Excess -5 mEq/L (-2 to 3); ABG HCO3 21 mEq/L (21-27); ABG Oxygen Saturation 97 % (95-98); ABG PCO2 39 mmHg (35-45); ABG PH 7.34 pH Units (7.32-7.45); ABG PO2 96 mmHg (85-104); ABG TCO2 22 mEq/L (20-26); Blood Gas Modality PRVC; Blood Gas PEEP 5 cm H2O; Blood Gas Respiration Rate 12; Blood Gas VT 500 cc
--- NOTE | 2018-07-28 06:01 | Procedure Note ---
Date of procedure: 07/28/18 Pre-op diagnosis: GI hemorrhage Post-op diagnosis: same Procedure: See below Was there an assistant general manager present: Yes Chief Airline Radio Operator: Michelle Sweet Estimated blood loss (cc): 0 Specimen: none Disposition: ICU Procedures - Arterial Line Time Out Performed: No Size (Gauge): 20 Technique Used: guide wire technique Post-Procedure: line sutured into place, line taped into place, dry sterile dressing placed Patient Tolerated Procedure: well, no complications Complications: none Site: left, radial Additional Comments: Ultrasound guidance was used - Central Line Placement Right Femoral Central Line Inserted*: Yes Central Line Catheter Replacement*: Yes Central Line Insertion: emergent Procedural Pause: perform hand hygiene Patient Placed on Monitor/Pulse Ox: Yes Central Line Prep: Chlorhexidine scrub Prep the Procedure Site: apply chloraprep to the skin using a back and forth scrubbing motion, allow prep to dry Ultrasound Used for Placement: No Central Line Lumen Inserted: triple Post Procedure: sutured in place, good blood return, all ports aspirated, flushed, capped, sterile dressing applied, guide wire removed and visualized Patient Tolerated Procedure: well, other (Central line was placed under emergent conditions. Full sterile technique was not able to be applied due to the deterioration of the patient's clinical status. Chlorhexidine was used. Sterile gloves were worn.) Name of Clinician Inserting Central Line: Dr. Sweet Clinician Assisting/Completing Checklist: Dr. Campbell Date: 07/28/18 - Intubation sedative: Etomidate Mg Given: 20 paralytic: Succinylcholine Mg Given: 80 Laryngoscope: Yumiko ET Tube Size: 7.5 ET Tube Uncuffed: No Tube Secured Depth (cm): 20 Tube Secured Location: lips Tube Placement Confirmation: visualized tube passing through cords, equal breath sounds bilaterally, no breath sounds over epigastrium, confirmation by capnometry Patient Tolerated Procedure: well Intubation Complications: none
--- NOTE | 2018-07-28 06:13 | Event Note ---
Date of Encounter: 07/28/18 Time of Encounter: 03:00 There was a rapid response to this patient's room. Patient had an episode of severe abdominal pain, vomiting, with bloody bowel movement. She had an episode of syncope at the same time. Patient appeared very pale on physical exam. Patient was tachycardic with a rate ranging from the 120s to 140s. Patient was delirious and confused. A stat CBC was obtained. Hemoglobin was 8.0. The last hemoglobin obtained was 9.6. Patient continued to have bloody bowel movements. At that time, due to patient's delirium, critical condition, and vomiting, it was decided to intubate the patient as is concerned that she cannot protect her airway. A left femoral central venous catheter was placed under emergent conditions. One unit of packed red blood cells was given at that time. CT angiogram of the abdomen and pelvis was obtained and did not reveal any evidence of intra-abdominal abnormality or active bleeding. Patient was at that time brought to the intensive care unit. Repeat CBC that was obtained of 40 minutes after the first unit of pack red blood cells was given reported a hemoglobin 8.3. An additional unit of packed red blood cells was given. Patient's heart rate began to normalize. Map is currently greater than 65. I placed an arterial line in the left radial artery. I spoke with the family extensively at bedside regarding the patient's critiical condition. General surgery, Dr. Mclean has been called by PARI Nino, and patient is to have tagged red blood cell scan to help delineate the source of bleeding. I have also spoken with the manager application development, Dr. Brady regarding the patient.
[2018-07-28] MEDS ORDERED: Artificial Tears SOLN 15 ML BOTTLE BOTH EYES PRN (06:31)
--- NOTE | 2018-07-28 07:54 | Pulmonology Consult Note ---
<Lucio Griffin - Last Filed: 07/28/18 14:53> Date of Encounter: 07/28/18 Time of Encounter: 13:29 Assessment and Plan (1) Lower gastrointestinal hemorrhage Current Visit: Yes Status: Acute This is a 67-year-old female with past medical history significant for hypertension, CVA on Plavix, history of colectomy 18 years ago, GERD who initi ally presented to the ED with rectal bleeding. - Pt had colonoscopy previously which showed precancerous lesion at ileocecal junction - lesion deemed unresectable per surgery, and pt recommended to undergo ileocecal colectomy - Evening 07/27/18: Noted to have multiple small bloody bowel movements. Hb dropped from 9.6 --> 8.0. Rapid Response called - pt began to have symptoms SOB, abdominal pain, diaphoresis --> Also noted to be tachycardic, lethargic - Pt intubated and brought to ICU; Femoral line placed - Given 2U PRBCs - CT abd/pelvis: showed no evidence of GI hemorrhage - NG Tube placed - negative for bloody output - Bleeding Scan this AM = no evidence of GI bleed - Hb/Hct this AM = 9.2/27.0 PLAN: Likely lower GI Bleed; negative CT Abd/Pelvis, negative Bleeding Scan; Hb/Hct = 9.2/27.0 at this time - Monitor Hb/Hct q6h - Monitor vitals; patient has remained hypotensive which may be secondary to sedation due to intubation, but also secondary to bleed - Plan to transfuse if Hb < 7.0 - Cont with mechanical ventilation - Surgery recommendations appreciated (2) Acute respiratory failure Current Visit: Yes Status: Acute Given rapid deterioration overnight, pt intubated - Currently intubated - sedated with fentanyl, propofol - ABG this AM: 7.34/39/96/21 PLAN: - Cont mechanical ventilation - Consider spontaneous breathing trial tomorrow, and if possible, extubation - ABG in the AM Qualifiers: Respiratory failure complication: hypoxia Qualified Code(s): J96.01 - Acute respiratory failure with hypoxia (3) HTN (hypertension) Current Visit: No Status: Chronic Pt has remained hypotensive - Currently on pressors - Hold BP meds PLAN: - Cont to monitor vitals; wean pressors as tolerated - May require transfusion if persistent hypotension Qualifiers: Hypertension type: essential hypertension Qualified Code(s): I10 - Essential (primary) hypertension (4) DVT prophylaxis Current Visit: No Status: Acute EPCDs History of Present Illness Consult date: 07/28/18 Requesting physician: Marybel Sanchez Reason for consult: other (Lower GI Bleed) Chief complaint: GI Bleed History of present illness: This is a 67-year-old female with past medical history significant for hypertension, CVA on Plavix, history of colectomy 18 years ago, GERD who presented to the ER for rectal bleeding. Per records, patient presented after waking up and having a large amount of bloody stool. Notes it was a dark blood clot. Then, patient took shower and felt dizzy, and subsequently lost consciousness and fell in the bathtub. Patient also notes several episodes of vomiting but denies coffee ground emesis. Prior to presenting to the ED had 2 episodes of rectal bleeding with dark blood. Associated with weakness and fatigue but otherwise denies any complaints. Of note, patient had colonoscopy last done which found suspected precancerous lesion at the ileocecal junction. Patient was deemed unresectable per surgery, and patient was recommended to undergo ileocecal colectomy. Had planned surgery this month with Dr. Francois. Initial presentation in the ED, hemoglobin = 12.2. Notes baseline = 16.0. Patient found to be Hemoccult positive. CT abdomen and pelvis found to be unremarkable. Additionally CT of the head and C-spine and echocardiography was unremarkable as well. Carotid duplex showed rt distal ICA 60-79% stenosis. Pt was admitted to hospitalist service due to syncope and GI Bleed. On evening of 07/27/18, pt noted to have multiple small bloody bowel movements. Also noted to have Hb which continued to drop from 9.6 to 8.0. Rapid response called, as pt began have symptoms of SOB, abdominal pain, diaphoresis, bloody stool. Pt noted to be tachycardic and lethargic as well. Given rapid deterioration, pt was intubated and brought to ICU. Given 2U PRBCs. Additionally, femoral line placed. CT Abd/Pelvis ordered and showed no evidence of GI hemorrhage. NG tube was placed, and negative for any blood. Bleeding scan completed this AM, and showed no evidence of GI bleed. Most recent Hb/Hct = 9.2/27.0. Surgery has evaluated pt and recommends conservative management at this time. Past Med Surg Social Fam HX - Past Medical History Attestation: Yes The following information was validated with the patient. Source: old records reviewed Medical history: cancer, COPD, GERD, hyperlipidemia, hypertension, thyroid disease, TIA Additional medical history: Lip cancer, patient states she has not had a TIA Psychiatric history: no psych history - Past Surgical History Surgical History: , cholecystectomy, colectomy, herniorrhaphy, orthopedic, other, other Additional surgical history: colon surgery, tubal ligation. hernia repair. c section - Social History Smoking Status: Current every day smoker Packs per day: <1 Smokeless Tobacco Status: No Alcohol use: none Drug use: none - Family History Father Living Status: Hx Family Cardiac Disorders: Yes ([place], CAD) Mother Living Status: Hx Family Cancer: Yes (colon cancer) Medications and Allergies RX: Clopidogrel Bisulfate [Plavix] 75 mg PO DAILY 10/26/15 [History] RX: Levothyroxine [Synthroid] 125 mcg PO QAM 10/26/15 [History] RX: Potassium Chloride [K-Tab ER] 20 meq PO BID 10/26/15 [History] Ergocalciferol (VITAMIN D2) [Vitamin D] 400 unit PO DAILY 03/27/16 [History] RX: Lovastatin 10 mg PO DAILY 11/30/17 [History] Losartan/HCTZ [Hyzaar 50-12.5 Tablet] 1 each PO DAILY 07/26/18 [History] Allergy/AdvReac Type Severity Reaction Status Date / Time No Known Allergies Allergy Verified 11/30/17 22:01 ROS unobtainable: due to endotracheal tube All Systems: The remainder of the systems were reviewed and are negative Physical Examination Vital Signs: Vital Signs, Last 4 Hours Temp Pulse Resp BP Pulse Ox 07/28/18 06:08 97.8 F 82 12 107/54 100 07/28/18 06:00 97.8 F 80 12 108/55 100 07/28/18 05:36 97.8 F 87 12 100/50 07/28/18 05:21 103 12 84/53 07/28/18 05:16 97.5 F L 104 15 84/53 99 07/28/18 05:00 107 14 97 07/28/18 04:19 53 14 49/33 98 General appearance: no acute distress, asleep (Intubated) Eyes: nonicteric ENT: oropharynx moist Neck: supple Effort: normal Auscultation: bilateral: rhonchi (Coarse breath sounds b/l; no wheezes, rales, crackles) Cardiovascular: regular rate and rhythm Gastrointestinal: hypoactive bowel sounds, soft, non-tender, non-distended Extremities: no cyanosis, no edema unable to assess due to mental status Ventilator Settings Ventilator Settings: Ventilator Settings, Last 8 Hours Ventilator Tidal Volume 500 Setting Ventilator Respiratory Rate 12 Setting Actual Respiratory Rate 12 Positive End Expiratory 5 Pressure Results - Laboratory Findings CBC and BMP: 07/28/18 10:55 07/28/18 03:06 ABG ABG pH 7.34 pH Units (7.32-7.45) 07/28/18 05:50 ABG pCO2 39 mmHg (35-45) 07/28/18 05:50 ABG pO2 96 mmHg (85-104) 07/28/18 05:50 ABG O2 Saturation 97 % (95-98) 07/28/18 05:50 PT/INR, D-dimer PT 13.5 Seconds (9.4-12.1) H 07/28/18 05:17 Abnormal lab findings: Abnormal lab results RBC 2.65 M/mcL (3.82-4.97) L 07/28/18 05:17 Hgb 8.3 g/dL (11.5-15.4) L 07/28/18 05:17 Hct 24.8 % (35.3-44.9) L 07/28/18 05:17 PT 13.5 Seconds (9.4-12.1) H 07/28/18 05:17 ABG Base Excess -5 mEq/L (-2 to 3) L 07/28/18 05:50 Potassium 3.4 mEq/L (3.5-5.1) L 07/28/18 03:06 Chloride 109 mEq/L (98-107) H 07/28/18 03:06 BUN 26 mg/dL (8-23) H 07/28/18 03:06 BUN/Creatinine Ratio 42 (6-26) H 07/28/18 03:06 Glucose 107 mg/dL (70-105) H 07/28/18 03:06 POC Glucose 153 mg/dL (70-99) H 07/28/18 04:47 Calcium 8.1 mg/dL (8.6-10.3) L 07/28/18 03:06 Stool Occult Bld Scrn Positive (Negative) A 07/26/18 13:50 - Clinical Findings Intake & Output: Intake & Output 07/27/18 07/27/18 07/28/18 15:59 23:59 07:59 Intake Total 720 / 720 360 / 360 250 / 250 Output Total 800 / 800 0 / 0 Balance -80 / -80 360 / 360 250 / 250 Weight 80.2 kg Consult Discharge Plan - Plan Referrals: Xavier Alvarez DO [Primary Care Provider] - <Kendall Brady - Last Filed: 07/28/18 22:15> Date of Encounter: 07/28/18 All Systems: The remainder of the systems were reviewed and are negative Physical Examination Vital Signs: Vital Signs, Last 4 Hours Temp Pulse Resp BP Pulse Ox 07/28/18 10:00 74 12 96/48 100 07/28/18 09:00 97.8 F 72 12 102/50 100 07/28/18 08:40 20 102/50 100 07/28/18 08:00 97.8 F 72 12 106/52 100 Ventilator Settings Ventilator Settings: Ventilator Settings, Last 8 Hours Ventilator Tidal Volume 500 Setting Ventilator Tidal Volume 500 Setting Ventilator Tidal Volume 500 Setting Ventilator Tidal Volume 500 Setting Ventilator Tidal Volume 500 Setting Ventilator Tidal Volume 500 Setting Ventilator Tidal Volume 500 Setting Ventilator Tidal Volume 500 Setting Ventilator Respiratory Rate 12 Setting Ventilator Respiratory Rate 12 Setting Ventilator Respiratory Rate 12 Setting Ventilator Respiratory Rate 12 Setting Ventilator Respiratory Rate 12 Setting Ventilator Respiratory Rate 12 Setting Actual Respiratory Rate 12 Actual Respiratory Rate 12 Actual Respiratory Rate 20 Actual Respiratory Rate 16 Actual Respiratory Rate 16 Actual Respiratory Rate 12 Actual Respiratory Rate 20 Positive End Expiratory 5 Pressure Positive End Expiratory 5 Pressure Positive End Expiratory 5 Pressure Positive End Expiratory 5 Pressure Positive End Expiratory 5 Pressure Positive End Expiratory 5 Pressure Peak Inspiratory Airway 22 Pressure Peak Inspiratory Airway 22 Pressure Peak Inspiratory Airway 20 Pressure Peak Inspiratory Airway 23 Pressure Results - Laboratory Findings CBC and BMP: 07/28/18 17:32 07/28/18 03:06 ABG ABG pH 7.34 pH Units (7.32-7.45) 07/28/18 05:50 ABG pCO2 39 mmHg (35-45) 07/28/18 05:50 ABG pO2 96 mmHg (85-104) 07/28/18 05:50 ABG O2 Saturation 97 % (95-98) 07/28/18 05:50 PT/INR, D-dimer PT 13.5 Seconds (9.4-12.1) H 07/28/18 05:17 Abnormal lab findings: Abnormal lab results RBC 2.65 M/mcL (3.82-4.97) L 07/28/18 05:17 Hgb 8.3 g/dL (11.5-15.4) L 07/28/18 05:17 Hct 24.8 % (35.3-44.9) L 07/28/18 05:17 PT 13.5 Seconds (9.4-12.1) H 07/28/18 05:17 ABG Base Excess -5 mEq/L (-2 to 3) L 07/28/18 05:50 Potassium 3.4 mEq/L (3.5-5.1) L 07/28/18 03:06 Chloride 109 mEq/L (98-107) H 07/28/18 03:06 BUN 26 mg/dL (8-23) H 07/28/18 03:06 BUN/Creatinine Ratio 42 (6-26) H 07/28/18 03:06 Glucose 107 mg/dL (70-105) H 07/28/18 03:06 POC Glucose 153 mg/dL (70-99) H 07/28/18 04:47 Calcium 8.1 mg/dL (8.6-10.3) L 07/28/18 03:06 Stool Occult Bld Scrn Positive (Negative) A 07/26/18 13:50 - Clinical Findings Intake & Output: Intake & Output 07/27/18 07/28/18 07/28/18 23:59 07:59 15:59 Intake Total 360 / 360 250 / 250 100 / 100 Output Total 0 / 0 300 / 300 Balance 360 / 360 250 / 250 -200 / -200 Weight 80.2 kg - Attending Attestation I examined this patient and my medical decision-making was reviewed with the Resident Physician. I agree with the documented findings, disposition and treatment plan as described except to the extent set forth below. Patient seen and examined. Labs, radiology, chart personally reviewed. 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 At this time, I feel patient should be easy to liberate from mechanical ventilation when her condition is more stable and bleeding under control. Cardiovascular: stable will need more blood transfusion for hypertension. GI: Nutrition per dietary and GI prophylaxis per routine. Discussed with the surgeon Dr. Mclean and conservative management for now until Dr. Francois see the patient and possible surgery. Heme: DVT prophylaxis per routine. Continue monitoring H&H. Patient had bleeding scan. Mechanical DVT prophylaxis. Renal; urine out put and renal funtion reviewed Endorcine: blood glucose is monitored Lines: all lines checked and no evidence of infections Skin: skin care to prevent pressure ulcers per nursing routine care Patient is full code Thank you for the consultation
--- NOTE | 2018-07-28 09:27 | General Surgery Progress Note ---
Date of Encounter: 07/28/18 Time of Encounter: 09:25 - Assessment and Plan (1) Adenomatous colon polyp Current Visit: Yes Status: Chronic patient with large unresectable cecal adenoma of the colon plan open ileocectomy in the future with Dr Francois Qualifiers: Colon location: unspecified part of colon Qualified Code(s): D12.6 - Benign neoplasm of colon, unspecified (2) History of open sigmoidectomy Current Visit: Yes Status: Chronic patient with remote history of open sigmoid colectomy due to bleeding polyp (3) Hypothyroid Current Visit: No Status: Chronic iv synthroid Qualifiers: Hypothyroidism type: postablative Qualified Code(s): E89.0 - Postprocedural hypothyroidism (4) Lower gastrointestinal hemorrhage Current Visit: Yes Status: Acute patient with GIB overnight ngt without bloody output will start bowel prep at 20cc /hr via ngt and see how tolerates serial abdominal exams CTA and bleed scan negative for obvious source trend Hb transfuse for instability or Hb < 7.0 vent management per CCM (5) HTN (hypertension) Current Visit: No Status: Chronic hypotensive overnight with GIB hold home medication monitor Qualifiers: Hypertension type: essential hypertension Qualified Code(s): I10 - E ssential (primary) hypertension Subjective Narrative: patient with abdominal pain, GIB, hypotension, mental confusion and intubated overnight currently sedated on vent Objective Vital Signs - Last 8 Hours Temp Pulse Resp BP Pulse Ox 07/28/18 09:00 97.8 F 72 12 102/50 100 07/28/18 08:00 97.8 F 72 22 106/52 100 07/28/18 07:00 63 16 102/60 100 07/28/18 06:08 97.8 F 82 12 107/54 100 07/28/18 06:00 97.8 F 80 12 108/55 100 07/28/18 05:36 97.8 F 87 12 100/50 07/28/18 05:21 103 12 84/53 07/28/18 05:16 97.5 F L 104 15 84/53 99 07/28/18 05:00 107 14 97 07/28/18 04:40 20 112/75 98 07/28/18 04:19 53 14 49/33 98 07/28/18 02:52 98.2 F 119 14 93/62 98 Intake and Output 0207/28/18 07/28/18 23:59 07:59 15:59 Intake Total 360 / 360 250 / 250 Output Total 0 / 0 300 / 300 Balance 360 / 360 250 / 250 -300 / -300 Intake: Oral 360 / 360 Blood Product 250 / 250 Rbcs Leuko Poor As-3 2nd Unit 250 / 250 [id number] Output: Urine 0 / 0 Catheter 300 / 300 Gastric Drainage 0 / 0 Other: Stool Size Small Stool Consistency liquid soft Stool Color Dark Red Blood # Bowel Movements 2 Weight 80.2 kg Patient Weight 07/28/18 23:59 Weight 80.2 kg - General physical appearance well developed, no distress - Eyes PERRL - ENT dry mucosa, normocephalic - Neck Neck exam: trachea midline - Respiratory other (vented) rales: bilateral - Cardiovascular Cardiovascular exam: Present: RRR, no murmurs/rubs/gallops - Abdomen Abdomen: Present: bowel sounds present (faint), soft. Absent: distended - Integumentary no rash, no growths - Neurologic other (sedated) - Musculoskeletal other (supine/sedated) - Psychiatric other (no response to verbal due to sedation) - Labs 07/28/18 05:17 07/28/18 03:06 Diabetes panel 07/28/18 Range/Units 03:06 Sodium 138 (136-145) mEq/L Potassium 3.4 L (3.5-5.1) mEq/L Chloride 109 H (98-107) mEq/L Carbon Dioxide 23 (23-29) mEq/L BUN 26 H (8-23) mg/dL Creatinine 0.62 (0.60-1.20) mg/dL Glucose 107 H (70-105) mg/dL Calcium 8.1 L (8.6-10.3) mg/dL Calcium panel 07/28/18 Range/Units 03:06 Calcium 8.1 L (8.6-10.3) mg/dL Pituitary panel 07/28/18 Range/Units 03:06 Sodium 138 (136-145) mEq/L Potassium 3.4 L (3.5-5.1) mEq/L Chloride 109 H (98-107) mEq/L Carbon Dioxide 23 (23-29) mEq/L BUN 26 H (8-23) mg/dL Creatinine 0.62 (0.60-1.20) mg/dL Glucose 107 H (70-105) mg/dL Calcium 8.1 L (8.6-10.3) mg/dL Adrenal panel 07/28/18 Range/Units 03:06 Sodium 138 (136-145) mEq/L Potassium 3.4 L (3.5-5.1) mEq/L Chloride 109 H (98-107) mEq/L Carbon Dioxide 23 (23-29) mEq/L BUN 26 H (8-23) mg/dL Creatinine 0.62 (0.60-1.20) mg/dL Glucose 107 H (70-105) mg/dL Calcium 8.1 L (8.6-10.3) mg/dL - Imaging Chest x-ray: report reviewed, image reviewed CT scan - abdomen: report reviewed, image reviewed CT scan - pelvis: report reviewed, image reviewed Additional Studies: GIB scan viewed - no source seen Consult Discharge Plan - Plan Referrals: Xavier Alvarez DO [Primary Care Provider] -
[2018-07-28] MEDS: Chlorhexidine Rinse 15 ML MOUTHWASH MM SCH ×2 (10:07→20:28)
[2018-07-28] MEDS: Artificial Tears SOLN 15 ML BOTTLE BOTH EYES SCH ×5 (10:07→23:35)
[2018-07-28 11:14] LABS: Hemoglobin 9.2 g/dL (11.5-15.4)
[2018-07-28] MEDS: Norepinephrine 4 MG in D5% in Water 250 ML IVC SCH ×2 (12:40→19:08)
[2018-07-28 13:55] LABS: Basophils % 0.4 %; Eosinophils # 0.1 K/mcL (0.0-0.6); Eosinophils % 0.6 %; Immature Granulocytes % 1.6 % (0-4); Lymphocytes # 2.1 K/mcL (0.6-4.6); Lymphocytes % 26.1 %; Mean Corpuscular HGB Conc 34.5 g/dL (31.6-35.5); Mean Corpuscular Hemoglobin 31.6 pg (28.0-33.3); Mean Corpuscular Volume 91.8 fL (83.0-100.0); Mean Platelet Volume 11.6 fL (9.4-12.4); Monocytes # 0.7 K/mcL (0.0-1.3); Monocytes % 8.8 %; Neutrophils # 5.1 K/mcL (1.6-8.9); Platelet Count 143 K/mcL (140-400); Red Blood Count 2.91 M/mcL (3.82-4.97); Red Cell Distribution Width 13.5 % (11.5-14.5); Segmented Neutrophils % 62.5 %
[2018-07-28 18:40] LABS: Basophils % 0.3 %; Eosinophils # 0.1 K/mcL (0.0-0.6); Eosinophils % 0.7 %; Hematocrit 26.3 % (35.3-44.9); Immature Granulocytes % 0.5 % (0-4); Lymphocytes % 15.9 %; Mean Corpuscular HGB Conc 34.2 g/dL (31.6-35.5); Mean Corpuscular Hemoglobin 31.3 pg (28.0-33.3); Mean Corpuscular Volume 91.3 fL (83.0-100.0); Monocytes # 1.2 K/mcL (0.0-1.3); Monocytes % 9.3 %; Neutrophils # 9.4 K/mcL (1.6-8.9); Platelet Count 167 K/mcL (140-400); Red Blood Count 2.88 M/mcL (3.82-4.97); Red Cell Distribution Width 13.7 % (11.5-14.5); Segmented Neutrophils % 73.3 %
--- NOTE | 2018-07-28 20:53 | Electrocardiograph Report ---
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
[2018-07-28 22:38] LABS: Hemoglobin 8.7 g/dL (11.5-15.4)
[2018-07-29] MEDS: Pantoprazole 40 MG in 0.9 % Sodium Chloride Mini Bag 100 ML IVC SCH ×5 (01:58→23:37)
[2018-07-29] MEDS: Norepinephrine 4 MG in D5% in Water 250 ML IVC SCH ×3 (02:39→20:02)
[2018-07-29] MEDS: Artificial Tears SOLN 15 ML BOTTLE BOTH EYES SCH ×5 (03:37→20:00)
[2018-07-29 04:51] LABS: ABG Base Excess -2 mEq/L (-2 to 3); ABG HCO3 23 mEq/L (21-27); ABG Oxygen Saturation 95 % (95-98); ABG PCO2 40 mmHg (35-45); ABG PH 7.37 pH Units (7.32-7.45); ABG PO2 75 mmHg (85-104); ABG TCO2 25 mEq/L (20-26); Blood Gas Modality VC; Blood Gas PEEP 5 cm H2O; Blood Gas Respiration Rate 12; Blood Gas VT 500 cc
[2018-07-29 05:11] LABS: Basophils # 0.1 K/mcL (0.0-0.2); Basophils % 0.4 %; Eosinophils # 0.2 K/mcL (0.0-0.6); Eosinophils % 1.4 %; Hematocrit 24.9 % (35.3-44.9); Hemoglobin 8.6 g/dL (11.5-15.4); Immature Granulocytes % 0.4 % (0-4); Lymphocytes # 1.9 K/mcL (0.6-4.6); Lymphocytes % 16.5 %; Mean Corpuscular HGB Conc 34.5 g/dL (31.6-35.5); Mean Corpuscular Hemoglobin 31.4 pg (28.0-33.3); Mean Corpuscular Volume 90.9 fL (83.0-100.0); Mean Platelet Volume 11.4 fL (9.4-12.4); Monocytes # 1.3 K/mcL (0.0-1.3); Monocytes % 10.9 %; Neutrophils # 8.2 K/mcL (1.6-8.9); Platelet Count 170 K/mcL (140-400); Red Blood Count 2.74 M/mcL (3.82-4.97); Red Cell Distribution Width 13.8 % (11.5-14.5); Segmented Neutrophils % 70.4 %
[2018-07-29 05:22] LABS: BUN/Creatinine Ratio 36 (6-26); Blood Urea Nitrogen 19 mg/dL (8-23); Calcium 7.9 mg/dL (8.6-10.3); Carbon Dioxide 22 mEq/L (23-29); Chloride 108 mEq/L (98-107); Glucose 143 mg/dL (70-105); Osmolality,Calculated 287 (280-300); Potassium 3.1 mEq/L (3.5-5.1); Sodium 136 mEq/L (136-145); eGFR For Non-African Americans > 60 (> 60)
[2018-07-29] MEDS: Levothyroxine Sodium 100 MCG VIAL IVP SCH (05:24)
[2018-07-29] MEDS ORDERED: Potassium Chloride 40 MEQ, Lidocaine 1% 2 ML in D5% in Water 500 ML IVPB ONE (05:26)
[2018-07-29] MEDS: FentaNYL (PF) 1,000 MCG in 0.9 % Sodium Chloride 80 ML IVC SCH ×2 (06:28→14:30)
--- NOTE | 2018-07-29 06:46 | Pulmonology Progress Note ---
Date of Encounter: 07/29/18 Time of Encounter: 06:46 Assessment and Plan (1) Acute respiratory failure Current Visit: Yes Status: Acute I spent 33min of Critical Care time with this patient. It involved decision making of high complexity to assess, manipulate, and support vital organ system failure and/or to prevent further life threatening deterioration of the patient's condition. The time involved in the performance of separately reporta ble procedures was not counted toward critical care time. Patient seen and examined at bedside Labs, radiology, chart personally reviewed. Management was reviewed during multidisciplinary critical care rounds. 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 Pulm: Acute hypoxic respiratory failure acceptable gas exchange today on vent she is not a candidate for spontaneous breathing trial because hypotension on vasopressor as well as high likelihood patient will be taken back to the OR for definitive surgical procedure earlier this week. Continue VAP Bundle Cards: Hypotension suspected sepsis and likely shock checking lactate patient has not been volume resuscitated which we will start at this time goal map 60- 65. 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 Plan for ileocecotomy in the future with Dr. Francois per general surgery is managing this aspect. There has been no overt evidence of bleeding overnight. Continue GI prophylaxis while on vent Nutrition: Nothing by mouth for now Renal: UOP Monitored, Cont to Trend sCr and monitor Electrolytes. ID: Sepsis of unclear etiology possibly intra-abdominal possible UTI I think less likely this represents pneumonia broad-spectrum antibiotics have been initiated MRSA nasal screen has been performed respiratory infection panel will be performed sputum blood and urine cultures obtained prior to broadening out antibiotics. Volume resuscitation has been initiated lactate pending Heme/Onc: Leading with blood loss anemia H&H has been stable overnight continue SCDs for DVT prophylaxis Endo: Glucose Monitored Integ/MSK: Skin Care per routine ICU Nursing Protocol to prevent ulcers. Lines: All lines examined without evidence of infection : Dispo: Remain in ICU for critical illness CODE: Full Qualifiers: Respiratory failure complication: hypoxia Qualified Code(s): J96.01 - Acute respiratory failure with hypoxia (2) Hypotension Current Visit: Yes Status: Acute Qualifiers: Hypotension type: unspecified hypotension type Qualified Code(s): I95.9 - Hypotension, unspecified (3) Sepsis Current Visit: Yes Status: Acute Qualifiers: Sepsis type: sepsis due to unspecified organism Qualified Code(s): A41.9 - Sepsis, unspecified organism (4) Lower gastrointestinal hemorrhage Current Visit: Yes Status: Acute Subjective Principal diagnosis: Gastrointestinal Bleeding Interval history: Overnight patient remains intubated she has had worsening hypotension with the addition of vasopressor does not appear to be related to use of sedation for vent as even on hold blood pressure was low requiring vasopressor support. Tmax 100.1. Per RN no evidence of bleeding from GI source overnight. Objective PUL Vital signs: Last Vital Signs Temp 98.9 F 07/29/18 04:00 Pulse 81 07/29/18 06:00 Resp 12 07/29/18 06:07 BP 108/44 07/29/18 06:07 Pulse Ox 100 07/29/18 06:07 General appearance: other (sedated on vent. ) Eyes: nonicteric ENT: other (ETT in satisfactory position ) Auscultation: bilateral: clear Cardiovascular: regular rate and rhythm Gastrointestinal: normoactive bowel sounds, soft, other (no grimmacing to deep palpation. non rigid) Integumentary: normal Extremities: no edema, no clubbing, pink and warm Musculoskeletal: no deformities pupils equal and round, other (She does localize to pain spontaneous movement of all extremities is noted she is unable to follow commands however) Ventilator Settings Ventilator Settings: Ventilator Settings, Last 8 Hours Ventilator Tidal Volume 500 Setting Ventilator Tidal Volume 500 Setting Ventilator Tidal Volume 500 Setting Ventilator Tidal Volume 500 Setting Ventilator Tidal Volume 500 Setting Ventilator Tidal Volume 500 Setting Ventilator Tidal Volume 500 Setting Ventilator Tidal Volume 500 Setting Ventilator Tidal Volume 500 Setting Ventilator Tidal Volume 500 Setting Ventilator Tidal Volume 500 Setting Ventilator Tidal Volume 500 Setting Ventilator Tidal Volume 500 Setting Ventilator Respiratory Rate 12 Setting Ventilator Respiratory Rate 12 Setting Ventilator Respiratory Rate 12 Setting Ventilator Respiratory Rate 12 Setting Ventilator Respiratory Rate 12 Setting Ventilator Respiratory Rate 12 Setting Ventilator Respiratory Rate 12 Setting Ventilator Respiratory Rate 12 Setting Ventilator Respiratory Rate 12 Setting Ventilator Respiratory Rate 12 Setting Ventilator Respiratory Rate 12 Setting Ventilator Respiratory Rate 12 Setting Ventilator Respiratory Rate 12 Setting Actual Respiratory Rate 12 Actual Respiratory Rate 12 Actual Respiratory Rate 12 Actual Respiratory Rate 12 Actual Respiratory Rate 12 Actual Respiratory Rate 12 Actual Respiratory Rate 12 Actual Respiratory Rate 12 Actual Respiratory Rate 12 Actual Respiratory Rate 12 Actual Respiratory Rate 12 Actual Respiratory Rate 12 Positive End Expiratory 5 Pressure Positive End Expiratory 5 Pressure Positive End Expiratory 5 Pressure Positive End Expiratory 5 Pressure Positive End Expiratory 5 Pressure Positive End Expiratory 5 Pressure Positive End Expiratory 5 Pressure Positive End Expiratory 5 Pressure Positive End Expiratory 5 Pressure Positive End Expiratory 5 Pressure Positive End Expiratory 5 Pressure Positive End Expiratory 5 Pressure Positive End Expiratory 5 Pressure Peak Inspiratory Airway 22 Pressure Peak Inspiratory Airway 24 Pressure Peak Inspiratory Airway 25 Pressure Peak Inspiratory Airway 24 Pressure Peak Inspiratory Airway 25 Pressure Peak Inspiratory Airway 26 Pressure Peak Inspiratory Airway 27 Pressure Peak Inspiratory Airway 25 Pressure Peak Inspiratory Airway 25 Pressure Peak Inspiratory Airway 23 Pressure Peak Inspiratory Airway 26 Pressure Peak Inspiratory Airway 23 Pressure Results - Laboratory Findings CBC and BMP: 07/29/18 04:45 07/29/18 04:45 ABG ABG pH 7.37 pH Units (7.32-7.45) 07/29/18 04:48 ABG pCO2 40 mmHg (35-45) 07/29/18 04:48 ABG pO2 75 mmHg (85-104) L 07/29/18 04:48 ABG O2 Saturation 95 % (95-98) 07/29/18 04:48 PT/INR, D-dimer PT 13.5 Seconds (9.4-12.1) H 07/28/18 05:17 Abnormal lab findings: Abnormal lab results WBC 11.7 K/mcL (4.3-11.1) H 07/29/18 04:45 RBC 2.74 M/mcL (3.82-4.97) L 07/29/18 04:45 Hgb 8.6 g/dL (11.5-15.4) L 07/29/18 04:45 Hct 24.9 % (35.3-44.9) L 07/29/18 04:45 PT 13.5 Seconds (9.4-12.1) H 07/28/18 05:17 ABG pO2 75 mmHg (85-104) L 07/29/18 04:48 Potassium 3.1 mEq/L (3.5-5.1) L 07/29/18 04:45 Chloride 108 mEq/L (98-107) H 07/29/18 04:45 Carbon Dioxide 22 mEq/L (23-29) L 07/29/18 04:45 Creatinine 0.53 mg/dL (0.60-1.20) L 07/29/18 04:45 BUN/Creatinine Ratio 36 (6-26) H 07/29/18 04:45 Glucose 143 mg/dL (70-105) H 07/29/18 04:45 POC Glucose 124 mg/dL (70-99) H 07/28/18 22:59 Calcium 7.9 mg/dL (8.6-10.3) L 07/29/18 04:45 Stool Occult Bld Scrn Positive (Negative) A 07/26/18 13:50 - Clinical Findings Intake & Output: Intake & Output 07/28/18 07/28/18 07/29/18 15:59 23:59 07:59 Intake Total 400 / 400 954 / 954 554 / 554 Output Total 350 / 350 425 / 425 170 / 170 Balance 50 / 50 529 / 529 384 / 384 Weight 79.4 kg Consult Discharge Plan - Plan Referrals: Xavier Alvarez DO [Primary Care Provider] -
[2018-07-29] MEDS ORDERED: *HR* Norepinephrine 4 MG/4 ML VIAL IVC ONE (08:30)
[2018-07-29] MEDS ORDERED: D5% in Water 250 ML IV BAG IV ONE (08:30)
--- NOTE | 2018-07-29 08:30 | General Surgery Progress Note ---
<Rima Mclean - Last Filed: 07/29/18 13:41> Date of Encounter: 07/29/18 - Assessment and Plan (1) Adenomatous colon polyp Current Visit: Yes Status: Chronic plan for open ileocectomy in future need to bowel prep patient if possible for colonoscopy before resection to see what is source of LGIB and if other intervention required bleed scan yday normal no further bleed episodes over last 24 hours start bowel prep through ngt Qualifiers: Colon location: unspecified part of colon Qualified Code(s): D12.6 - Benign neoplasm of colon, unspecified (2) History of open sigmoidectomy Current Visit: Yes Status: Chronic (3) Hypothyroid Current Visit: No Status: Chronic continue iv synthroid Qualifiers: Hypothyroidism type: postablative Qualified Code(s): E89.0 - Postprocedural hypothyroidism (4) Lower gastrointestinal hemorrhage Current Visit: Yes Status: Acute Hb stable last 24 hours monitor transfuse as needed start bowel prep (5) HTN (hypertension) Current Visit: No Status: Chronic holding home meds d/t hypotension Qualifiers: Hypertension type: essential hypertension Qualified Code(s): I10 - Essential (primary) hypertension Subjective Narrative: sedated on vent, respond with eye opening to stimulation Objective Vital Signs - Last 8 Hours Temp Pulse Resp BP Pulse Ox 07/29/18 11:00 98.8 F 82 12 96/62 91 07/29/18 10:00 76 16 88/56 95 07/29/18 09:00 80 16 104/58 97 07/29/18 08:04 12 100/45 100 07/29/18 08:00 100.1 F H 78 12 105/42 99 07/29/18 07:00 78 12 110/47 99 07/29/18 06:07 12 108/44 100 07/29/18 06:00 81 12 114/48 99 Intake and Output 07/28/18 07/29/18 07/29/18 23:59 07:59 15:59 Intake Total 954 / 954 654 / 654 454 / 454 Output Total 425 / 425 170 / 170 200 / 200 Balance 529 / 529 484 / 484 254 / 254 Intake: IV Fluids 654 / 654 654 / 654 454 / 454 FentaNYL (PF) 1,000 MCG In 0.9 100 / 100 100 / 100 % Sodium Chloride 80 ML @ 50 MCG/HR 5 mls/hr IVC CONT [facility] Rx #:[id number] Levophed 4 MG In Dextrose 5% 254 / 254 254 / 254 254 / 254 250 ML @ 8 MCG/MIN 30.48 mls/hr IVC CONT [facility] Rx#:[id number] Protonix 40 MG In 0.9 % Sodium 100 / 100 200 / 200 100 / 100 Chloride (Mini-Bag +) 100 ML @ 20 mls/hr IVC .Q5H [facility] Rx#: [id number] Diprivan 1,000 mg In 100 ml @ 5 200 / 200 100 / 100 100 / 100 MCG/KG/MIN 2.406 mls/hr IVC . Q24H [facility] Rx#:[id number] Blood Product 300 / 300 Rbcs Leuko Poor As-3 Ph Unit 300 / 300 [id number] Output: Catheter 375 / 375 150 / 150 200 / 200 Gastric Drainage 50 / 50 20 / 20 Other: Weight 79.4 kg Blood Glucose* 124 142 - General physical appearance well developed, well nourished, no distress - Eyes PERRL - ENT dry mucosa, atraumatic - Neck Neck exam: trachea midline - Respiratory rales: bilateral - Cardiovascular Cardiovascular exam: Present: RRR - Abdomen Abdomen: Present: bowel sounds present (faint), soft. Absent: distended - Integumentary no rash, no growths - Neurologic CN 2-12 grossly intact - Musculoskeletal normal posture - Psychiatric oriented to time, oriented to person, oriented to place, speech is normal, memory intact - Labs 07/29/18 04:45 07/29/18 04:45 Diabetes panel 07/29/18 Range/Units 04:45 Sodium 136 (136-145) mEq/L Potassium 3.1 L (3.5-5.1) mEq/L Chloride 108 H (98-107) mEq/L Carbon Dioxide 22 L (23-29) mEq/L BUN 19 (8-23) mg/dL Creatinine 0.53 L (0.60-1.20) mg/dL Glucose 143 H (70-105) mg/dL Calcium 7.9 L (8.6-10.3) mg/dL Calcium panel 07/29/18 Range/Units 04:45 Calcium 7.9 L (8.6-10.3) mg/dL Pituitary panel 07/29/18 Range/Units 04:45 Sodium 136 (136-145) mEq/L Potassium 3.1 L (3.5-5.1) mEq/L Chloride 108 H (98-107) mEq/L Carbon Dioxide 22 L (23-29) mEq/L BUN 19 (8-23) mg/dL Creatinine 0.53 L (0.60-1.20) mg/dL Glucose 143 H (70-105) mg/dL Calcium 7.9 L (8.6-10.3) mg/dL Adrenal panel 07/29/18 Range/Units 04:45 Sodium 136 (136-145) mEq/L Potassium 3.1 L (3.5-5.1) mEq/L Chloride 108 H (98-107) mEq/L Carbon Dioxide 22 L (23-29) mEq/L BUN 19 (8-23) mg/dL Creatinine 0.53 L (0.60-1.20) mg/dL Glucose 143 H (70-105) mg/dL Calcium 7.9 L (8.6-10.3) mg/dL Consult Discharge Plan - Plan Referrals: Xavier Alvarez DO [Primary Care Provider] - - Attending Attestation I examined this patient and my medical decision-making was reviewed with the Resident Physician. I agree with the documented findings, disposition and treat ment plan as described except to the extent set forth below. <BooTiana - Last Filed: 07/29/18 14:44> Date of Encounter: 07/29/18 Time of Encounter: 08:10 - Assessment and Plan (1) Lower gastrointestinal hemorrhage Current Visit: Yes Status: Acute Possibly secondary to diverticular bleed vs colon polyp bleed vs other source CTA abd showed no source of bleed RBC scan showed no active GI bleed NG showed no bloody output No bleeding for 24 hours. Hb is stable. Start bowel prep via NG for possible colonoscopy Serial abdominal exams Monitor Hb Transfuse if Hb <7.0. Continue to closely monitor (2) Colon polyp Current Visit: Yes Status: Acute Unresectable cecal polyp Plan for open ileocectomy in the future by Dr Francois Qualifiers: Colon polyp type: unspecified Colon location: ascending Qualified Co de(s): D12.2 - Benign neoplasm of ascending colon (3) History of open sigmoidectomy Current Visit: Yes Status: Chronic History of open sigmoid colectomy due to bleeding polyp Subjective Narrative: Patient seen and examined. No acute events overnight. Patient is ventilated under sedation. Patient opens her eyes with stimulation but quickly goes back to sleep. She does not speak or follow commands. Nurse reports patient is no longer passing blood. Objective Vital Signs - Last 8 Hours Temp Pulse Resp BP Pulse Ox 07/29/18 08:04 12 100/45 100 07/29/18 07:00 80 12 110/47 99 07/29/18 06:07 12 108/44 100 07/29/18 06:00 81 12 114/48 99 07/29/18 05:30 75 12 96/48 100 07/29/18 04:00 98.9 F 79 12 130/50 100 07/29/18 03:32 12 119/46 100 07/29/18 03:00 81 13 131/50 100 07/29/18 02:00 72 12 128/48 99 07/29/18 01:40 12 113/44 100 07/29/18 01:00 63 12 109/42 100 Intake and Output 07/28/18 07/29/18 07/29/18 23:59 07:59 15:59 Intake Total 954 / 954 654 / 654 Output Total 425 / 425 170 / 170 Balance 529 / 529 484 / 484 Intake: IV Fluids 654 / 654 654 / 654 FentaNYL (PF) 1,000 MCG In 0.9 100 / 100 100 / 100 % Sodium Chloride 80 ML @ 50 MCG/HR 5 mls/hr IVC CONT [facility] Rx #:[id number] Levophed 4 MG In Dextrose 5% 254 / 254 254 / 254 250 ML @ 8 MCG/MIN 30.48 mls/hr IVC CONT [facility] Rx#:[id number] Protonix 40 MG In 0.9 % Sodium 100 / 100 200 / 200 Chloride (Mini-Bag +) 100 ML @ 20 mls/hr IVC .Q5H [facility] Rx#: [id number] Diprivan 1,000 mg In 100 ml @ 5 200 / 200 100 / 100 MCG/KG/MIN 2.406 mls/hr IVC . Q24H [facility] Rx#:[id number] Blood Product 300 / 300 Rbcs Leuko Poor As-3 Ph Unit 300 / 300 [id number] Output: Catheter 375 / 375 150 / 150 Gastric Drainage 50 / 50 Other: Weight 79.4 kg Blood Glucose* 124 - Additional Exam VITAL SIGNS: Reviewed. See [facility] GENERAL: In no apparent distress. Under sedation. HEENT: Normocephalic, atraumatic, pupils are equal and reactive, extraocular motions intact. CHEST/RESPIRATORY: The thorax is free from signs of trauma. Lung sounds: rhonchi with inspiration, normal respiratory effort. On mechanical ventilation CARDIAC: Regular rate and rhythm. Normal S1 and S2, without murmurs, gallops, or rubs. VASCULAR: No Edema. On pressor support ABDOMEN: soft, obese, hypoactive bowel sounds present. NG output shows green fluid. MUSCULOSKELETAL: Good range of motion of all major joints. Extremities without clubbing, cyanosis or edema. NEUROLOGIC EXAM: Under sedation. No speech. Does not follow commands. SKIN: No rash or lesions. - Labs 07/29/18 04:45 07/29/18 04:45 Diabetes panel 07/29/18 Range/Units 04:45 Sodium 136 (136-145) mEq/L Potassium 3.1 L (3.5-5.1) mEq/L Chloride 108 H (98-107) mEq/L Carbon Dioxide 22 L (23-29) mEq/L BUN 19 (8-23) mg/dL Creatinine 0.53 L (0.60-1.20) mg/dL Glucose 143 H (70-105) mg/dL Calcium 7.9 L (8.6-10.3) mg/dL Calcium panel 07/29/18 Range/Units 04:45 Calcium 7.9 L (8.6-10.3) mg/dL Pituitary panel 07/29/18 Range/Units 04:45 Sodium 136 (136-145) mEq/L Potassium 3.1 L (3.5-5.1) mEq/L Chloride 108 H (98-107) mEq/L Carbon Dioxide 22 L (23-29) mEq/L BUN 19 (8-23) mg/dL Creatinine 0.53 L (0.60-1.20) mg/dL Glucose 143 H (70-105) mg/dL Calcium 7.9 L (8.6-10.3) mg/dL Adrenal panel 07/29/18 Range/Units 04:45 Sodium 136 (136-145) mEq/L Potassium 3.1 L (3.5-5.1) mEq/L Chloride 108 H (98-107) mEq/L Carbon Dioxide 22 L (23-29) mEq/L BUN 19 (8-23) mg/dL Creatinine 0.53 L (0.60-1.20) mg/dL Glucose 143 H (70-105) mg/dL Calcium 7.9 L (8.6-10.3) mg/dL
[2018-07-29] MEDS: Chlorhexidine Rinse 15 ML MOUTHWASH MM SCH ×2 (08:32→21:31)
[2018-07-29 08:33] LABS: Bilirubin,Urine Negative (Negative); Blood,Urine Negative (Negative); Clarity,Urine Cloudy (Clear); Color,Urine Yellow (Yellow); Glucose,Urine (UA) Normal (Normal); Ketones,Urine Negative (Negative); Leukocyte Esterase,Urine Moderate (Negative); Nitrite,Urine Positive (Negative); PH,Urine 5.5 pH Units (5.0-8.0); Protein,Urine Negative (Neg-Trace); Urobilinogen,Urine Normal (Normal)
[2018-07-29 08:34] LABS: Bacteria,Urine Many per hpf (None-Few); Hyaline Casts,Urine None Seen per lpf (None-Few); RBC,Urine 0-3 per hpf (0-3); Squamous Epithelial Cell,Urine Moderate per lpf (None-Few); WBC,Urine 15-30 per hpf (0-3)
[2018-07-29 09:20] LABS: Adenovirus Not Detected (Not Detect); Bordetella Pertussis Not Detected (Not Detect); Chlamydophila pneumoniae Not Detected (Not Detect); Coronavirus 229E Not Detected (Not Detect); Coronavirus HKU1 Not Detected (Not Detect); Coronavirus NL63 Not Detected (Not Detect); Coronavirus OC43 Not Detected (Not Detect); Human Metapneumovirus Not Detected (Not Detect); Human Rhinovirus/Enterovirus Not Detected (Not Detect); Influenza A Subtype 2009 H1 Not Detected (Not Detect); Influenza A Untypeable Not Detected (Not Detect); Influenza B Not Detected (Not Detect); Mycoplasma pneumoniae Not Detected (Not Detect); Parainfluenza Virus 1 Not Detected (Not Detect); Parainfluenza Virus 2 Not Detected (Not Detect); Parainfluenza Virus 3 Not Detected (Not Detect); Parainfluenza Virus 4 Not Detected (Not Detect); Respiratory Syncytial Virus Not Detected (Not Detect)
[2018-07-29] MEDS ORDERED: Ringers Solution, Lactated 1,000 ML IVC ONE (13:09)
[2018-07-29] MEDS ORDERED: Ringers Solution, Lactated 2,000 ML ONE (13:13)
[2018-07-29] MEDS: metroNIDAZOLE 500 MG TABLET PO SCH ×3 (13:15→22:21)
[2018-07-29] MEDS: Piperacillin/Tazobactam 3.375 GM in 0.9 % Sodium Chloride Mini Bag 100 ML IVPB SCH (16:37)
[2018-07-29 19:03] LABS: Hematocrit 20.8 % (35.3-44.9)
[2018-07-29] MEDS ORDERED: 0.9 % Sodium Chloride 250 ML ONE (20:18)
[2018-07-30] MEDS: Piperacillin/Tazobactam 3.375 GM in 0.9 % Sodium Chloride Mini Bag 100 ML IVPB SCH ×4 (00:23→23:40)
[2018-07-30] MEDS: Artificial Tears SOLN 15 ML BOTTLE BOTH EYES SCH ×7 (00:23→23:45)
[2018-07-30 03:44] LABS: Basophils # 0.1 K/mcL (0.0-0.2); Basophils % 0.4 %; Eosinophils # 0.1 K/mcL (0.0-0.6); Eosinophils % 0.8 %; Hematocrit 26.7 % (35.3-44.9); Immature Granulocytes % 0.5 % (0-4); Lymphocytes % 13.8 %; Mean Corpuscular HGB Conc 34.5 g/dL (31.6-35.5); Mean Corpuscular Hemoglobin 31.2 pg (28.0-33.3); Mean Corpuscular Volume 90.5 fL (83.0-100.0); Mean Platelet Volume 10.8 fL (9.4-12.4); Monocytes # 1.5 K/mcL (0.0-1.3); Monocytes % 10.7 %; Neutrophils # 10.5 K/mcL (1.6-8.9); Platelet Count 148 K/mcL (140-400); Red Blood Count 2.95 M/mcL (3.82-4.97); Red Cell Distribution Width 14.3 % (11.5-14.5); Segmented Neutrophils % 73.8 %
[2018-07-30 03:51] LABS: Hemoglobin 9.2 g/dL (11.5-15.4)
[2018-07-30] MEDS: Norepinephrine 4 MG in D5% in Water 250 ML IVC SCH (03:57)
[2018-07-30 04:04] LABS: BUN/Creatinine Ratio 14 (6-26); Blood Urea Nitrogen 9 mg/dL (8-23); Calcium 7.7 mg/dL (8.6-10.3); Carbon Dioxide 22 mEq/L (23-29); Chloride 110 mEq/L (98-107); Glucose 130 mg/dL (70-105); Osmolality,Calculated 282 (280-300); Potassium 3.5 mEq/L (3.5-5.1); Sodium 136 mEq/L (136-145); eGFR For Non-African Americans > 60 (> 60)
[2018-07-30] MEDS: Pantoprazole 40 MG in 0.9 % Sodium Chloride Mini Bag 100 ML IVC SCH ×4 (04:32→23:40)
[2018-07-30] MEDS: FentaNYL (PF) 1,000 MCG in 0.9 % Sodium Chloride 80 ML IVC SCH ×2 (04:35→16:30)
[2018-07-30 04:47] LABS: ABG Base Excess -3 mEq/L (-2 to 3); ABG HCO3 23 mEq/L (21-27); ABG Oxygen Saturation 94 % (95-98); ABG PCO2 40 mmHg (35-45); ABG PH 7.36 pH Units (7.32-7.45); ABG PO2 75 mmHg (85-104); ABG TCO2 24 mEq/L (20-26); Blood Gas Modality VC; Blood Gas PEEP 5 cm H2O; Blood Gas Respiration Rate 12; Blood Gas VT 500 cc
[2018-07-30] MEDS: Levothyroxine Sodium 100 MCG VIAL IVP SCH (05:30)
--- NOTE | 2018-07-30 07:51 | General Surgery Progress Note ---
<Tiana Haddad - Last Filed: 07/30/18 07:49> Date of Encounter: 07/30/18 Time of Encounter: 07:30 - Assessment and Plan (1) Lower gastrointestinal hemorrhage Current Visit: Yes Status: Acute Possibly secondary to diverticular bleed vs other source. Unlikely from unresectable cecal polyp CTA abd showed no source of bleed RBC scan showed no active GI bleed NG showed no bloody output No active bleeding for 48 hours. Hb is stable. Plan for endoscopy today to find source of bleed Bowel prep via NG Serial abdominal exams Monitor Hb Transfuse if Hb <7.0. Continue to closely monitor (2) Colon polyp Current Visit: Yes Status: Acute Unresectable cecal polyp Plan for open ileocectomy in the future by Dr Francois Qualifiers: Colon polyp type: unspecified Colon location: ascending Qualified Code(s): D12.2 - Benign neoplasm of ascending colon (3) History of open sigmoidectomy Current Visit: Yes Status: Chronic History of open sigmoid colectomy due to bleeding polyp Subjective Narrative: Patient seen and examined. No acute events overnight. Patient is ventilated under sedation. Patient does not respond to stimulation. Cannot obtain ROS. Nurse reports no active bleeding. Patient is still hypotensive and is on pressors. Objective Vital Signs - Last 8 Hours Temp Pulse Resp BP Pulse Ox 07/30/18 07:47 12 100 07/30/18 06:13 12 102/53 100 07/30/18 06:00 60 12 102/53 100 07/30/18 05:00 62 12 88/44 100 07/30/18 04:00 99.1 F 64 12 89/52 100 07/30/18 03:36 12 77/36 100 07/30/18 03:00 60 12 96/44 100 07/30/18 02:00 62 12 102/45 100 07/30/18 01:00 64 12 92/42 100 07/30/18 00:19 12 100 07/30/18 00:00 65 12 84/43 100 Intake and Output 07/29/18 07/29/18 07/30/18 15:59 23:59 07:59 Intake Total 654 / 654 2872 / 2872 1564 / 1564 Output Total 750 / 750 725 / 725 925 / 925 Balance -96 / -96 2147 / 2147 639 / 639 Intake: IV Fluids 654 / 654 2480 / 2480 950 / 950 FentaNYL (PF) 1,000 MCG In 0.9 100 / 100 100 / 100 % Sodium Chloride 80 ML @ 50 MCG/HR 5 mls/hr IVC CONT [facility] Rx #:[id number] Levophed 4 MG In Dextrose 5% 254 / 254 258 / 258 250 / 250 250 ML @ 8 MCG/MIN 30.48 mls/hr IVC CONT [facility] Rx#:[id number] Protonix 40 MG In 0.9 % Sodium 100 / 100 200 / 200 100 / 100 Chloride (Mini-Bag +) 100 ML @ 20 mls/hr IVC .Q5H [facility] Rx#: [id number] Diprivan 1,000 mg In 100 ml @ 5 200 / 200 200 / 200 200 / 200 MCG/KG/MIN 2.406 mls/hr IVC . Q24H [facility] Rx#:[id number] Lactated Ringers 1,000 ML @ 999 1000 / 1000 mls/hr IVC .Q1H1M [facility] Rx#: [id number] Zosyn 3.375 GM In 0.9 % Sodium 100 / 100 100 / 100 Chloride (Mini-Bag +) 100 ML @ 25 mls/hr IVPB Q8HR [facility] Rx#: [id number] Potassium Chloride 20 mEq/100 200 / 200 200 / 200 mL 20 meq In 100 ml @ 100 mls/ hr IVPB Q1H [facility] Rx#:[id number] KCl 40 MEQ Xylocaine 2 ML In 522 / 522 Dextrose 5% 500 ML @ 130.5 mls/ hr IVPB ONCE [facility] Rx#:[id number] Blood Product 325 / 325 325 / 325 Rbcs Leuko Poor As-1 Unit 0 / 0 325 / 325 [id number] Rbcs Leuko Poor As-1 Unit 325 / 325 [id number] Other 67 / 67 289 / 289 Output: Catheter 750 / 750 725 / 725 925 / 925 Other: Weight 84.5 kg Blood Glucose* 142 140 Patient Weight 07/30/18 23:59 Weight 84.5 kg - Additional Exam VITAL SIGNS: Reviewed. See [facility] GENERAL: In no apparent distress. Under sedation. HEENT: Normocephalic, atraumatic, pupils are equal and reactive, extraocular motions intact. CHEST/RESPIRATORY: The thorax is free from signs of trauma. Lung sounds: rhonchi with inspiration, normal respiratory effort. On mechanical ventilation CARDIAC: Regular rate and rhythm. Normal S1 and S2, without murmurs, gallops, or rubs. VASCULAR: No Edema. On pressor support ABDOMEN: soft, obese, hypoactive bowel sounds present. NG output shows green fluid. MUSCULOSKELETAL: Extremities without clubbing, cyanosis or edema. NEUROLOGIC EXAM: Under sedation. No speech. Does not follow commands. SKIN: No rash or lesions. - Labs 07/30/18 03:30 07/30/18 03:30 Diabetes panel 07/29/18 07/30/18 Range/Units 18:45 03:30 Sodium 136 (136-145) mEq/L Potassium 3.3 L 3.5 (3.5-5.1) mEq/L Chloride 110 H (98-107) mEq/L Carbon Dioxide 22 L (23-29) mEq/L BUN 9 (8-23) mg/dL Creatinine 0.63 (0.60-1.20) mg/dL Glucose 130 H (70-105) mg/dL Calcium 7.7 L (8.6-10.3) mg/dL Calcium panel 07/30/18 Range/Units 03:30 Calcium 7.7 L (8.6-10.3) mg/dL Pituitary panel 07/29/18 07/30/18 Range/Units 18:45 03:30 Sodium 136 (136-145) mEq/L Potassium 3.3 L 3.5 (3.5-5.1) mEq/L Chloride 110 H (98-107) mEq/L Carbon Dioxide 22 L (23-29) mEq/L BUN 9 (8-23) mg/dL Creatinine 0.63 (0.60-1.20) mg/dL Glucose 130 H (70-105) mg/dL Calcium 7.7 L (8.6-10.3) mg/dL Adrenal panel 07/29/18 07/30/18 Range/Units 18:45 03:30 Sodium 136 (136-145) mEq/L Potassium 3.3 L 3.5 (3.5-5.1) mEq/L Chloride 110 H (98-107) mEq/L Carbon Dioxide 22 L (23-29) mEq/L BUN 9 (8-23) mg/dL Creatinine 0.63 (0.60-1.20) mg/dL Glucose 130 H (70-105) mg/dL Calcium 7.7 L (8.6-10.3) mg/dL Consult Discharge Plan - Plan Referrals: Xavier Alvarez DO [Primary Care Provider] - <Armen Francois - Last Filed: 07/30/18 09:26> Date of Encounter: 07/30/18 Objective Vital Signs - Last 8 Hours Temp Pulse Resp BP Pulse Ox 07/30/18 08:36 97.9 F 07/30/18 07:47 12 100 07/30/18 06:13 12 102/53 100 07/30/18 06:00 60 12 102/53 100 07/30/18 05:00 62 12 88/44 100 07/30/18 04:00 99.1 F 64 12 89/52 100 07/30/18 03:36 12 77/36 100 07/30/18 03:00 60 12 96/44 100 07/30/18 02:00 62 12 102/45 100 Intake and Output 07/29/18 07/30/18 07/30/18 23:59 07:59 15:59 Intake Total 2872 / 2872 1564 / 1564 Output Total 725 / 725 925 / 925 550 / 550 Balance 2147 / 2147 639 / 639 -550 / -550 Intake: IV Fluids 2480 / 2480 950 / 950 FentaNYL (PF) 1,000 MCG In 0.9 100 / 100 % Sodium Chloride 80 ML @ 50 MCG/HR 5 mls/hr IVC CONT [facility] Rx #:[id number] Levophed 4 MG In Dextrose 5% 258 / 258 250 / 250 250 ML @ 8 MCG/MIN 30.48 mls/hr IVC CONT [facility] Rx#:[id number] Protonix 40 MG In 0.9 % Sodium 200 / 200 100 / 100 Chloride (Mini-Bag +) 100 ML @ 20 mls/hr IVC .Q5H [facility] Rx#: [id number] Diprivan 1,000 mg In 100 ml @ 5 200 / 200 200 / 200 MCG/KG/MIN 2.406 mls/hr IVC . Q24H [facility] Rx#:[id number] Lactated Ringers 1,000 ML @ 999 1000 / 1000 mls/hr IVC .Q1H1M [facility] Rx#: [id number] Zosyn 3.375 GM In 0.9 % Sodium 100 / 100 100 / 100 Chloride (Mini-Bag +) 100 ML @ 25 mls/hr IVPB Q8HR [facility] Rx#: [id number] Potassium Chloride 20 mEq/100 200 / 200 200 / 200 mL 20 meq In 100 ml @ 100 mls/ hr IVPB Q1H [facility] Rx#:[id number] KCl 40 MEQ Xylocaine 2 ML In 522 / 522 Dextrose 5% 500 ML @ 130.5 mls/ hr IVPB ONCE [facility] Rx#:[id number] Blood Product 325 / 325 325 / 325 Rbcs Leuko Poor As-1 Unit 0 / 0 325 / 325 [id number] Rbcs Leuko Poor As-1 Unit 325 / 325 [id number] Other 289 / 289 Output: Catheter 725 / 725 925 / 925 550 / 550 Other: Weight 84.5 kg Blood Glucose* 140 Patient Weight 07/30/18 23:59 Weight 84.5 kg - Labs 07/30/18 03:30 07/30/18 03:30 Diabetes panel 07/29/18 07/30/18 Range/Units 18:45 03:30 Sodium 136 (136-145) mEq/L Potassium 3.3 L 3.5 (3.5-5.1) mEq/L Chloride 110 H (98-107) mEq/L Carbon Dioxide 22 L (23-29) mEq/L BUN 9 (8-23) mg/dL Creatinine 0.63 (0.60-1.20) mg/dL Glucose 130 H (70-105) mg/dL Calcium 7.7 L (8.6-10.3) mg/dL Calcium panel 07/30/18 Range/Units 03:30 Calcium 7.7 L (8.6-10.3) mg/dL Pituitary panel 07/29/18 07/30/18 Range/Units 18:45 03:30 Sodium 136 (136-145) mEq/L Potassium 3.3 L 3.5 (3.5-5.1) mEq/L Chloride 110 H (98-107) mEq/L Carbon Dioxide 22 L (23-29) mEq/L BUN 9 (8-23) mg/dL Creatinine 0.63 (0.60-1.20) mg/dL Glucose 130 H (70-105) mg/dL Calcium 7.7 L (8.6-10.3) mg/dL Adrenal panel 07/29/18 07/30/18 Range/Units 18:45 03:30 Sodium 136 (136-145) mEq/L Potassium 3.3 L 3.5 (3.5-5.1) mEq/L Chloride 110 H (98-107) mEq/L Carbon Dioxide 22 L (23-29) mEq/L BUN 9 (8-23) mg/dL Creatinine 0.63 (0.60-1.20) mg/dL Glucose 130 H (70-105) mg/dL Calcium 7.7 L (8.6-10.3) mg/dL - Attending Attestation I examined this patient and my medical decision-making was reviewed with the Resident Physician. I agree with the documented findings, disposition and treatment plan as described except to the extent set forth below. The patient is seen and evaluated with rest and on morning rounds. She is intubated and unstable in the intensive care unit. She had GI bleeding of unknown source. Tagged red blood cell scan and CTA failed to demonstrate the level of the GI bleed. She will require upper and lower endoscopy. She has a known unresectable polyp in the cecum. This may be the bleeding source, however, we want to make sure that no other bleeding source can be readily identified prior to any final decision for surgical resection. We will follow along very closely with you. As soon as she has adequate bowel preparation EGD and colonoscopy can be performed. Armen Wade FACS
[2018-07-30] MEDS: Chlorhexidine Rinse 15 ML MOUTHWASH MM SCH ×2 (07:52→20:38)
[2018-07-30] MEDS ORDERED: *HR* Etomidate 20 MG/10 ML AMPUL IVP ONE (08:13)
[2018-07-30] MEDS ORDERED: *HR* Succinylcholine 200 MG/10 ML VIAL IVP ONE (08:13)
[2018-07-30] MEDS ORDERED: *HR* Midazolam HCl 5 MG/5 ML VIAL IVP ONE (08:13)
[2018-07-30 08:57] LABS: VBG Ionized Calcium 1.22 mmol/L (1.15-1.35)
--- NOTE | 2018-07-30 09:19 | Pulmonology Progress Note ---
<Reji Rolon W - Last Filed: 07/30/18 12:42> Date of Encounter: 07/30/18 Assessment and Plan (1) Acute respiratory failure Current Visit: Yes Status: Acute Qualifiers: Respiratory failure complication: hypoxia Qualified Code(s): J96.01 - Acute respiratory failure with hypoxia (2) Hypotension Current Visit: Yes Status: Acute Qualifiers: Hypotension type: unspecified hypotension type Qualified Code(s): I95.9 - Hypotension, unspecified (3) Sepsis Current Visit: Yes Status: Acute Qualifiers: Sepsis type: sepsis due to unspecified organism Qualified Code(s): A41.9 - Sepsis, unspecified organism (4) Lower gastrointestinal hemorrhage Current Visit: Yes Status: Acute Objective PUL Vital signs: Last Vital Signs Temp 98.9 F 07/30/18 12:27 Pulse 71 07/30/18 12:00 Resp 10 07/30/18 12:00 BP 88/41 07/30/18 12:00 Pulse Ox 100 07/30/18 12:00 Ventilator Settings Ventilator Settings: Ventilator Settings, Last 8 Hours Ventilator Tidal Volume 500 Setting Ventilator Tidal Volume 450 Setting Ventilator Tidal Volume 500 Setting Ventilator Tidal Volume 500 Setting Ventilator Tidal Volume 450 Setting Ventilator Tidal Volume 500 Setting Ventilator Tidal Volume 500 Setting Ventilator Tidal Volume 500 Setting Ventilator Tidal Volume 500 Setting Ventilator Tidal Volume 500 Setting Ventilator Tidal Volume 500 Setting Ventilator Tidal Volume 500 Setting Ventilator Respiratory Rate 12 Setting Ventilator Respiratory Rate 12 Setting Ventilator Respiratory Rate 12 Setting Ventilator Respiratory Rate 12 Setting Ventilator Respiratory Rate 12 Setting Ventilator Respiratory Rate 12 Setting Ventilator Respiratory Rate 12 Setting Ventilator Respiratory Rate 12 Setting Ventilator Respiratory Rate 12 Setting Ventilator Respiratory Rate 12 Setting Ventilator Respiratory Rate 12 Setting Ventilator Respiratory Rate 12 Setting Actual Respiratory Rate 10 Actual Respiratory Rate 12 Actual Respiratory Rate 20 Actual Respiratory Rate 13 Actual Respiratory Rate 12 Actual Respiratory Rate 12 Actual Respiratory Rate 12 Actual Respiratory Rate 12 Actual Respiratory Rate 12 Actual Respiratory Rate 12 Positive End Expiratory 5 Pressure Positive End Expiratory 5 Pressure Positive End Expiratory 5 Pressure Positive End Expiratory 5 Pressure Positive End Expiratory 5 Pressure Positive End Expiratory 5 Pressure Positive End Expiratory 5 Pressure Positive End Expiratory 5 Pressure Positive End Expiratory 5 Pressure Positive End Expiratory 5 Pressure Positive End Expiratory 5 Pressure Positive End Expiratory 5 Pressure Peak Inspiratory Airway 32 Pressure Peak Inspiratory Airway 25 Pressure Peak Inspiratory Airway 42 Pressure Peak Inspiratory Airway 31 Pressure Peak Inspiratory Airway 23 Pressure Peak Inspiratory Airway 24 Pressure Peak Inspiratory Airway 22 Pressure Peak Inspiratory Airway 23 Pressure Peak Inspiratory Airway 22 Pressure Peak Inspiratory Airway 23 Pressure Peak Inspiratory Airway 24 Pressure Peak Inspiratory Airway 24 Pressure Results - Laboratory Findings CBC and BMP: 07/30/18 03:30 07/30/18 03:30 ABG ABG pH 7.36 pH Units (7.32-7.45) 07/30/18 04:44 ABG pCO2 40 mmHg (35-45) 07/30/18 04:44 ABG pO2 75 mmHg (85-104) L 07/30/18 04:44 ABG O2 Saturation 94 % (95-98) L 07/30/18 04:44 PT/INR, D-dimer PT 13.5 Seconds (9.4-12.1) H 07/28/18 05:17 Abnormal lab findings: Abnormal lab results WBC 14.2 K/mcL (4.3-11.1) H 07/30/18 03:30 RBC 2.95 M/mcL (3.82-4.97) L 07/30/18 03:30 Hgb 9.2 g/dL (11.5-15.4) L D 07/30/18 03:30 Hct 26.7 % (35.3-44.9) L 07/30/18 03:30 Neutrophils # 10.5 K/mcL (1.6-8.9) H 07/30/18 03:30 Monocytes # 1.5 K/mcL (0.0-1.3) H 07/30/18 03:30 PT 13.5 Seconds (9.4-12.1) H 07/28/18 05:17 ABG pO2 75 mmHg (85-104) L 07/30/18 04:44 ABG O2 Saturation 94 % (95-98) L 07/30/18 04:44 ABG Base Excess -3 mEq/L (-2 to 3) L 07/30/18 04:44 Chloride 110 mEq/L (98-107) H 07/30/18 03:30 Carbon Dioxide 22 mEq/L (23-29) L 07/30/18 03:30 Glucose 130 mg/dL (70-105) H 07/30/18 03:30 POC Glucose 117 mg/dL (70-99) H 07/30/18 11:43 Calcium 7.7 mg/dL (8.6-10.3) L 07/30/18 03:30 Urine Clarity Cloudy (Clear) A 07/29/18 08:15 Urine Nitrite Positive (Negative) A 07/29/18 08:15 Ur Leukocyte Esterase Moderate (Negative) H 07/29/18 08:15 Urine Microscopic WBC 15-30 per hpf (0-3) H 07/29/18 08:15 Ur Squamous Epith Cells Moderate per lpf (None-Few) H 07/29/18 08:15 Urine Bacteria Many per hpf (None-Few) H 07/29/18 08:15 Ur Culture Indicated? YES (NO) A 07/29/18 08:15 Stool Occult Bld Scrn Positive (Negative) A 07/26/18 13:50 - Microbiology Findings Microbiology Findings: Microbiology, Last 48 Hours 07/29/18 11:35 Sputum Culture - Preliminary Sputum 07/29/18 08:15 Urine Culture - Preliminary Urine,[place] Culture is incubating. 07/29/18 08:15 Legionella Antigen - Final Urine,[place] 07/29/18 08:15 Streptococcus pneumoniae Antigen (M - Final Urine,[place] 07/29/18 08:28 Blood Culture - Preliminary Peripheral Venipuncture Culture is incubating and being continuously monitored for growth. Final report to follow. 07/29/18 08:27 Blood Culture - Preliminary Peripheral Venipuncture Culture is incubating and being continuously monitored for growth. Final report to follow. - Clinical Findings Intake & Output: Intake & Output 07/29/18 07/30/18 07/30/18 23:59 07:59 15:59 Intake Total 2872 / 2872 1564 / 1564 100 / 100 Output Total 725 / 725 925 / 925 750 / 750 Balance 2147 / 2147 639 / 639 -650 / -650 Weight 84.5 kg Consult Discharge Plan - Plan Referrals: Xavier Alvarez DO [Primary Care Provider] - - Attending Attestation I examined this patient and my medical decision-making was reviewed with the Resident Physician. I agree with the documented findings, disposition and treatment plan as described except to the extent set forth below. We independently had [id number] contact with the patient I spent 33min of Critical Care time with this patient. It involved decision making of high complexity to assess, manipulate, and support vital organ system failure and/or to prevent further life threatening deterioration of the pat ient's condition. The time involved in the performance of separately reportable procedures was not counted toward critical care time. Patient seen and examined at bedside Labs, radiology, chart personally reviewed. Management was reviewed during multidisciplinary critical care rounds. 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 on vent I have instructed nursing staff to decrease her sedation to get closer to goal [place] of 2-3 she is currently at 2 [place] 4 Pulm: Intubated on vent acceptable gas exchange today not a candidate for spontaneous breathing trial because of shock and planned endoscopic/surgical procedure Cards: Suspected distributive shock secondary to sepsis patient responded to volume challenge yesterday but is back on vasopressors today lactate is normal we will give another fluid challenge and reassess GI: Continue on PPI patient has a colonic polyp that was deemed resectable likely leading to hemorrhage plan for endoscopy one spell prepped general surgery following Nutrition: Nothing by mouth for now appreciate nutrition recommendations can consider TPN Renal: UOP Monitored, Cont to Trend sCr and monitor Electrolytes. ID: Sepsis with shock likely secondary to intra-abdominal's source versus pneumonia cultures pending she is on broad-spectrum antibiotics with plan to de- escalate Heme/Onc: Mechanical DVT prophylaxis because of GI bleed. H&H is stable no evidence of coagulopathy Endo: Glucose Monitored Integ/MSK: Skin Care per routine ICU Nursing Protocol to prevent ulcers. Lines: All lines examined without evidence of infection : Dispo: Remain in ICU for critical illness CODE: Full <El Doran - Last Filed: 07/30/18 13:12> Date of Encounter: 07/30/18 Time of Encounter: 12:53 Assessment and Plan (1) Acute respiratory failure Current Visit: Yes Status: Acute Patient currently on mechanical ventilation. Ventilator Settings: Rate 12, FiO2 30, PEEP 5, tidal 500, O2 sat 100%. Plan: Continue mechanical ventilation. Not candidate for spontaneous breathing trial due to pending endoscopy and colonoscopy. Qualifiers: Respiratory failure complication: hypoxia Qualified Code(s): J96.01 - Acute respiratory failure with hypoxia (2) Sepsis Current Visit: Yes Status: Acute Patient most recently has temperature 98.9, pulse 71, respiratory rate 20, BP 88/41, WBC 14.2. Currently does not meet sepsis criteria with only 1 out of 4 criteria (WBC 14.2). Sepsis source pneumonia versus abdominal source. Sputum cultures 07/29, blood cultures pending. Plan: Patient has been hypotensive during her hospital stay. Continue pressors. 500 mL bolus of albumin 5% ordered Qualifiers: Sepsis type: sepsis due to unspecified organism Qualified Code(s): A41.9 - Sepsis, unspecified organism (3) Lower gastrointestinal hemorrhage Current Visit: Yes Status: Acute Patient's hemoglobin currently 9.2. Dr. Husain plans to do possible colonoscopy and endoscopy tomorrow morning depending on success of bowel prep. Her CT scan showed no active GI bleed. Plan: Monitor hemoglobin levels and Transfuse if hemoglobin less than 7.0. Serial abdominal exams. Patient currently on alprazolam regimen for possible colonoscopy but has not had a bowel movement yet. (4) Hypotension Current Visit: Yes Status: Acute Patient currently hypotensive at 88/41. She is on norepinephrine 4 mg IV continuous. Plan: Continue norepinephrine drip. Qualifiers: Hypotension type: unspecified hypotension type Qualified Code(s): I95.9 - Hypotension, unspecified (5) DVT prophylaxis Current Visit: No Status: Acute SCDs Subjective Principal diagnosis: Gastrointestinal Bleeding Interval history: 67-year-old female here for BR PC. 67-year-old female here for BR PC, currently on fentanyl drip. Per nursing staff patient has not had a bowel movement despite having a bowel prep for possible endoscopy and colonoscopy As a result Dr. Francois his plan to do scope tomorrow. Patient currently sedated and appears comfortable and in no acute distress. Objective PUL Vital signs: Last Vital Signs Temp 97.9 F 07/30/18 08:36 Pulse 60 07/30/18 06:00 Resp 12 07/30/18 07:47 BP 102/53 07/30/18 06:13 Pulse Ox 100 07/30/18 07:47 General appearance: no acute distress, asleep, appears uncomfortable Eyes: nonicteric Neck: supple Effort: normal Auscultation: bilateral: diminished breath sounds Cardiovascular: regular rate and rhythm Gastrointestinal: soft, non-distended, other (Hyperactive bowel sounds expected from bowel prep.) Extremities: pink and warm, pulses normal unable to assess due to mental status Ventilator Settings Ventilator Settings: Ventilator Settings, Last 8 Hours Ventilator Tidal Volume 500 Setting Ventilator Tidal Volume 500 Setting Ventilator Tidal Volume 500 Setting Ventilator Tidal Volume 500 Setting Ventilator Tidal Volume 500 Setting Ventilator Tidal Volume 500 Setting Ventilator Tidal Volume 500 Setting Ventilator Tidal Volume 500 Setting Ventilator Tidal Volume 500 Setting Ventilator Respiratory Rate 12 Setting Ventilator Respiratory Rate 12 Setting Ventilator Respiratory Rate 12 Setting Ventilator Respiratory Rate 12 Setting Ventilator Respiratory Rate 12 Setting Ventilator Respiratory Rate 12 Setting Ventilator Respiratory Rate 12 Setting Ventilator Respiratory Rate 12 Setting Ventilator Respiratory Rate 12 Setting Actual Respiratory Rate 12 Actual Respiratory Rate 12 Actual Respiratory Rate 12 Actual Respiratory Rate 12 Actual Respiratory Rate 12 Actual Respiratory Rate 12 Positive End Expiratory 5 Pressure Positive End Expiratory 5 Pressure Positive End Expiratory 5 Pressure Positive End Expiratory 5 Pressure Positive End Expiratory 5 Pressure Positive End Expiratory 5 Pressure Positive End Expiratory 5 Pressure Positive End Expiratory 5 Pressure Positive End Expiratory 5 Pressure Peak Inspiratory Airway 23 Pressure Peak Inspiratory Airway 23 Pressure Peak Inspiratory Airway 24 Pressure Peak Inspiratory Airway 24 Pressure Peak Inspiratory Airway 23 Pressure Peak Inspiratory Airway 24 Pressure Peak Inspiratory Airway 26 Pressure Peak Inspiratory Airway 31 Pressure Results - Laboratory Findings CBC and BMP: 07/30/18 03:30 07/30/18 03:30 ABG ABG pH 7.36 pH Units (7.32-7.45) 07/30/18 04:44 ABG pCO2 40 mmHg (35-45) 07/30/18 04:44 ABG pO2 75 mmHg (85-104) L 07/30/18 04:44 ABG O2 Saturation 94 % (95-98) L 07/30/18 04:44 PT/INR, D-dimer PT 13.5 Seconds (9.4-12.1) H 07/28/18 05:17 Abnormal lab findings: Abnormal lab results WBC 14.2 K/mcL (4.3-11.1) H 07/30/18 03:30 RBC 2.95 M/mcL (3.82-4.97) L 07/30/18 03:30 Hgb 9.2 g/dL (11.5-15.4) L D 07/30/18 03:30 Hct 26.7 % (35.3-44.9) L 07/30/18 03:30 Neutrophils # 10.5 K/mcL (1.6-8.9) H 07/30/18 03:30 Monocytes # 1.5 K/mcL (0.0-1.3) H 07/30/18 03:30 PT 13.5 Seconds (9.4-12.1) H 07/28/18 05:17 ABG pO2 75 mmHg (85-104) L 07/30/18 04:44 ABG O2 Saturation 94 % (95-98) L 07/30/18 04:44 ABG Base Excess -3 mEq/L (-2 to 3) L 07/30/18 04:44 Chloride 110 mEq/L (98-107) H 07/30/18 03:30 Carbon Dioxide 22 mEq/L (23-29) L 07/30/18 03:30 Glucose 130 mg/dL (70-105) H 07/30/18 03:30 POC Glucose 140 mg/dL (70-99) H 07/30/18 05:18 Calcium 7.7 mg/dL (8.6-10.3) L 07/30/18 03:30 Urine Clarity Cloudy (Clear) A 07/29/18 08:15 Urine Nitrite Positive (Negative) A 07/29/18 08:15 Ur Leukocyte Esterase Moderate (Negative) H 07/29/18 08:15 Urine Microscopic WBC 15-30 per hpf (0-3) H 07/29/18 08:15 Ur Squamous Epith Cells Moderate per lpf (None-Few) H 07/29/18 08:15 Urine Bacteria Many per hpf (None-Few) H 07/29/18 08:15 Ur Culture Indicated? YES (NO) A 07/29/18 08:15 Stool Occult Bld Scrn Positive (Negative) A 07/26/18 13:50 - Microbiology Findings Microbiology Findings: Microbiology, Last 48 Hours 07/29/18 11:35 Sputum Culture - Preliminary Sputum 07/29/18 08:15 Urine Culture - Preliminary Urine,[place] Culture is incubating. 07/29/18 08:15 Legionella Antigen - Final Urine,[place] 07/29/18 08:15 Streptococcus pneumoniae Antigen (M - Final Urine,[place] 07/29/18 08:28 Blood Culture - Preliminary Peripheral Venipuncture Culture is incubating and being continuously monitored for growth. Final report to follow. 07/29/18 08:27 Blood Culture - Preliminary Peripheral Venipuncture Culture is incubating and being continuously monitored for growth. Final report to follow. - Clinical Findings Intake & Output: Intake & Output 07/29/18 07/30/18 07/30/18 23:59 07:59 15:59 Intake Total 2872 / 2872 1564 / 1564 Output Total 725 / 725 925 / 925 550 / 550 Balance 2147 / 2147 639 / 639 -550 / -242 Weight 84.5 kg
[2018-07-30] MEDS ORDERED: D10% in Water 500 ML IVC PRN (13:40)
[2018-07-30] MEDS: metroNIDAZOLE 500 MG TABLET PO SCH (14:22)
[2018-07-30 15:27] LABS: Phosphorous 2.3 mg/dL (2.7-4.5); Potassium 3.9 mEq/L (3.5-5.1)
[2018-07-30] MEDS ORDERED: Dexmedetomidine HCl 400 MCG/100 ML MLS IVC ONE (16:05)
[2018-07-30] MEDS ORDERED: Dextrose 4 GM Chewable Tablets PO PRN ×2 (16:10)
[2018-07-30] MEDS ORDERED: D5% in Water 1,000 ML IVC PRN (16:10)
[2018-07-30] MEDS ORDERED: *HR* Dextrose 50 % in Water (Syg) 50 ML SYRINGE IVP PRN (16:10)
[2018-07-30] MEDS ORDERED: Dextrose Gel 15 GM/37.5 ML TUBE PO PRN ×2 (16:10)
[2018-07-30] MEDS ORDERED: Clinimix E 5%-15% SOLUTION 2,000 ML with MVI, adult with vitamin K 10 ML IVC SCH (17:00)
[2018-07-30 17:18] LABS: Basophils % 0.3 %; Eosinophils # 0.1 K/mcL (0.0-0.6); Eosinophils % 1.3 %; Hematocrit 25.6 % (35.3-44.9); Hemoglobin 8.7 g/dL (11.5-15.4); Immature Granulocytes % 0.4 % (0-4); Lymphocytes # 1.3 K/mcL (0.6-4.6); Lymphocytes % 12.6 %; Mean Corpuscular Hemoglobin 30.9 pg (28.0-33.3); Mean Corpuscular Volume 90.8 fL (83.0-100.0); Monocytes % 9.6 %; Platelet Count 155 K/mcL (140-400); Red Blood Count 2.82 M/mcL (3.82-4.97); Red Cell Distribution Width 14.7 % (11.5-14.5); Segmented Neutrophils % 75.8 %
[2018-07-30] MEDS: Insulin LISPRO 300 UNITS/3 ML VIAL SQ SCH ×2 (18:35→23:46)
[2018-07-31] MEDS: Norepinephrine 4 MG in D5% in Water 250 ML IVC SCH (01:11)
[2018-07-31] MEDS: Artificial Tears SOLN 15 ML BOTTLE BOTH EYES SCH ×5 (03:40→19:24)
[2018-07-31 03:42] LABS: Basophils % 0.2 %; Eosinophils # 0.2 K/mcL (0.0-0.6); Eosinophils % 2.1 %; Hematocrit 25.8 % (35.3-44.9); Hemoglobin 8.7 g/dL (11.5-15.4); Immature Granulocytes % 0.7 % (0-4); Lymphocytes # 1.6 K/mcL (0.6-4.6); Lymphocytes % 14.5 %; Mean Corpuscular HGB Conc 33.7 g/dL (31.6-35.5); Mean Corpuscular Hemoglobin 31.2 pg (28.0-33.3); Mean Corpuscular Volume 92.5 fL (83.0-100.0); Mean Platelet Volume 10.9 fL (9.4-12.4); Monocytes % 8.7 %; Neutrophils # 8.3 K/mcL (1.6-8.9); Platelet Count 151 K/mcL (140-400); Red Blood Count 2.79 M/mcL (3.82-4.97); Red Cell Distribution Width 14.6 % (11.5-14.5); Segmented Neutrophils % 73.8 %
[2018-07-31 04:01] LABS: BUN/Creatinine Ratio 15 (6-26); Blood Urea Nitrogen 10 mg/dL (8-23); Carbon Dioxide 23 mEq/L (23-29); Chloride 109 mEq/L (98-107); Glucose 143 mg/dL (70-105); Magnesium 1.6 mg/dL (1.6-2.6); Osmolality,Calculated 290 (280-300); Phosphorous 2.2 mg/dL (2.7-4.5); Potassium 3.4 mEq/L (3.5-5.1); Sodium 139 mEq/L (136-145); Triglycerides 64 mg/dL (< 150); eGFR For Non-African Americans > 60 (> 60)
[2018-07-31] MEDS: Pantoprazole 40 MG in 0.9 % Sodium Chloride Mini Bag 100 ML IVC SCH ×2 (04:51→11:50)
[2018-07-31 05:14] LABS: ABG Base Excess 0 mEq/L (-2 to 3); ABG HCO3 24 mEq/L (21-27); ABG Oxygen Saturation 93 % (95-98); ABG PCO2 33 mmHg (35-45); ABG PH 7.46 pH Units (7.32-7.45); ABG PO2 63 mmHg (85-104); ABG TCO2 25 mEq/L (20-26); Blood Gas Modality VC; Blood Gas PEEP 5 cm H2O; Blood Gas Respiration Rate 12; Blood Gas VT 450 cc
[2018-07-31] MEDS: Levothyroxine Sodium 100 MCG VIAL IVP SCH (05:46)
--- NOTE | 2018-07-31 06:46 | General Surgery Progress Note ---
<Tiana Haddad - Last Filed: 07/31/18 07:41> Date of Encounter: 07/31/18 Time of Encounter: 06:25 - Assessment and Plan (1) Lower gastrointestinal hemorrhage Current Visit: Yes Status: Acute Possibly secondary to diverticular bleed vs unresectable cecal polyp vs other source CTA abd showed no source of bleed RBC scan showed no active GI bleed NG showed no bloody output No active bleeding for 72 hours. Hb is stable. Bowel prep yesterday did not go through. Extubate today, if considered appropriate by Pulm/CC Once extubated and awake, will follow symptoms Will plan for bowel prep and scope when patient is stable and there is return of bowel function Serial abdominal exams Monitor Hb Transfuse if Hb <7.0. Continue to closely monitor (2) Colon polyp Current Visit: Yes Status: Acute Unresectable cecal polyp Plan for open ileocectomy in the future by Dr Francois Qualifiers: Colon polyp type: unspecified Colon location: ascending Qualified Code(s): D12.2 - Benign neoplasm of ascending colon (3) History of open sigmoidectomy Current Visit: Yes Status: Chronic History of sigmoid colectomy Subjective Narrative: Patient seen and examined. No acute events overnight. Patient is ventilated under sedation. Cannot obtain ROS. Patient opens her eyes and moves her extremities to stimulation. Follows commands. Patient is off pressors. Nurse reports bowel prep did not go through yesterday and there was no bowel movement. No active bleeding. Objective Vital Signs - Last 8 Hours Temp Pulse Resp BP Pulse Ox 07/31/18 06:18 17 118/53 98 07/31/18 06:00 73 16 118/53 100 07/31/18 05:00 92 22 139/62 100 07/31/18 04:21 72 15 115/57 100 07/31/18 04:00 98.7 F 63 14 96/42 100 07/31/18 03:55 66 15 111/55 100 07/31/18 03:50 15 113/47 100 07/31/18 03:33 61 14 104/53 100 07/31/18 03:16 66 07/31/18 03:00 66 15 111/55 100 07/31/18 02:45 54 13 98/47 100 07/31/18 02:30 56 13 113/49 100 07/31/18 02:00 57 13 115/60 100 07/31/18 01:47 55 12 108/54 100 07/31/18 01:33 52 12 79/44 100 07/31/18 01:20 54 12 77/40 100 07/31/18 01:00 59 13 79/37 100 07/31/18 00:12 99.2 F 07/31/18 00:00 70 17 99/46 100 07/30/18 23:48 13 95/45 100 07/30/18 23:00 73 18 105/51 100 Intake and Output 07/30/18 07/30/18 07/31/18 15:59 23:59 07:59 Intake Total 904 / 904 200 / 200 699 / 699 Output Total 750 / 750 300 / 300 250 / 250 Balance 154 / 154 -100 / -100 449 / 449 Intake: IV Fluids 904 / 904 200 / 200 699 / 699 ALBURX 5% 12.5 gm In 250 ml @ 250 / 250 60 mls/hr IVC .Q4H10M [facility] Rx#: [id number] PRECEDEX Premix 400 mcg In 100 50 / 50 ml @ 0 mls/hr IVC .STK-MED ONE Rx#:[id number] FentaNYL (PF) 1,000 MCG In 0.9 100 / 100 % Sodium Chloride 80 ML @ 50 MCG/HR 5 mls/hr IVC CONT [facility] Rx #:[id number] Clinimix E 5%-15% SOLUTION 2, 375 / 375 000 ML @ 50 mls/hr IVC .Q24H [facility] with M.v.i. Adult 10 ml Rx# :[id number] Levophed 4 MG In Dextrose 5% 254 / 254 74 / 74 250 ML @ 8 MCG/MIN 30.48 mls/hr IVC CONT [facility] Rx#:[id number] Protonix 40 MG In 0.9 % Sodium 200 / 200 100 / 100 100 / 100 Chloride (Mini-Bag +) 100 ML @ 20 mls/hr IVC .Q5H [facility] Rx#: [id number] Zosyn 3.375 GM In 0.9 % Sodium 100 / 100 100 / 100 100 / 100 Chloride (Mini-Bag +) 100 ML @ 25 mls/hr IVPB Q8HR [facility] Rx#: [id number] Oral 0 / 0 Output: Catheter 750 / 750 300 / 300 250 / 250 Other: Weight 85.7 kg Blood Glucose* 117 115 Patient Weight 07/31/18 23:59 Weight 85.7 kg - Additional Exam VITAL SIGNS: Reviewed. See [facility] GENERAL: In no apparent distress. Under sedation. HEENT: Normocephalic, atraumatic, pupils are equal and reactive, extraocular motions intact. CHEST/RESPIRATORY: The thorax is free from signs of trauma. Lung sounds: occasional inspiratory rhonchi, otherwise clear to auscultation, normal respiratory effort. On mechanical ventilation CARDIAC: Regular rate and rhythm. Normal S1 and S2, without murmurs, gallops, or rubs. VASCULAR: No Edema. ABDOMEN: soft, obese, normal bowel sounds present MUSCULOSKELETAL: Good range of motion of all major joints. Extremities without clubbing, cyanosis or edema. NEUROLOGIC EXAM: Under sedation and ventilated. No speech. Follows commands. SKIN: No rash or lesions. - Labs 07/31/18 03:25 07/31/18 03:25 Diabetes panel 07/30/18 07/31/18 Range/Units 14:58 03:25 Sodium 139 (136-145) mEq/L Potassium 3.9 3.4 L (3.5-5.1) mEq/L Chloride 109 H (98-107) mEq/L Carbon Dioxide 23 (23-29) mEq/L BUN 10 (8-23) mg/dL Creatinine 0.66 (0.60-1.20) mg/dL Glucose 143 H (70-105) mg/dL Calcium 8.0 L (8.6-10.3) mg/dL Triglycerides 64 (< 150) mg/dL Calcium panel 07/30/18 07/31/18 Range/Units 14:58 03:25 Calcium 8.0 L (8.6-10.3) mg/dL Phosphorus 2.3 L 2.2 L (2.7-4.5) mg/dL Pituitary panel 07/30/18 07/31/18 Range/Units 14:58 03:25 Sodium 139 (136-145) mEq/L Potassium 3.9 3.4 L (3.5-5.1) mEq/L Chloride 109 H (98-107) mEq/L Carbon Dioxide 23 (23-29) mEq/L BUN 10 (8-23) mg/dL Creatinine 0.66 (0.60-1.20) mg/dL Glucose 143 H (70-105) mg/dL Calcium 8.0 L (8.6-10.3) mg/dL Adrenal panel 07/30/18 07/31/18 Range/Units 14:58 03:25 Sodium 139 (136-145) mEq/L Potassium 3.9 3.4 L (3.5-5.1) mEq/L Chloride 109 H (98-107) mEq/L Carbon Dioxide 23 (23-29) mEq/L BUN 10 (8-23) mg/dL Creatinine 0.66 (0.60-1.20) mg/dL Glucose 143 H (70-105) mg/dL Calcium 8.0 L (8.6-10.3) mg/dL Consult Discharge Plan - Plan Referrals: Xavier Alvarez DO [Primary Care Provider] - <Armen Francois - Last Filed: 07/31/18 13:14> Date of Encounter: 07/31/18 Objective Vital Signs - Last 8 Hours Temp Pulse Resp BP Pulse Ox 07/31/18 11:14 98.8 F 07/31/18 10:02 14 118/51 98 07/31/18 09:00 80 14 105/51 100 07/31/18 08:00 99.8 F H 84 12 128/59 100 07/31/18 07:40 12 134/55 98 07/31/18 07:00 99.8 F H 93 16 116/46 100 07/31/18 06:18 17 118/53 98 07/31/18 06:00 73 16 118/53 100 Intake and Output 07/30/18 07/31/18 07/31/18 23:59 07:59 15:59 Intake Total 245 / 245 802 / 802 542.7 / 542.7 Output Total 300 / 300 470 / 470 2100 / 2100 Balance -55 / -55 332 / 332 -1557.3 / -1557.3 Intake: IV Fluids 245 / 245 802 / 802 542.7 / 542.7 PRECEDEX Premix 400 mcg In 100 50 / 50 ml @ 0 mls/hr IVC .STK-MED ONE Rx#:[id number] FentaNYL (PF) 1,000 MCG In 0.9 103 / 103 2.7 / 2.7 % Sodium Chloride 80 ML @ 50 MCG/HR 5 mls/hr IVC CONT [facility] Rx #:[id number] Clinimix E 5%-15% SOLUTION 2, 375 / 375 000 ML @ 50 mls/hr IVC .Q24H [facility] with M.v.i. Adult 10 ml Rx# :[id number] Levophed 4 MG In Dextrose 5% 74 / 74 250 ML @ 8 MCG/MIN 30.48 mls/hr IVC CONT [facility] Rx#:[id number] Protonix 40 MG In 0.9 % Sodium 100 / 100 100 / 100 90 / 90 Chloride (Mini-Bag +) 100 ML @ 20 mls/hr IVC .Q5H [facility] Rx#: [id number] Diprivan 1,000 mg In 100 ml @ 5 45 / 45 MCG/KG/MIN 2.406 mls/hr IVC . Q24H [facility] Rx#:[id number] Zosyn 3.375 GM In 0.9 % Sodium 100 / 100 100 / 100 100 / 100 Chloride (Mini-Bag +) 100 ML @ 25 mls/hr IVPB Q8HR [facility] Rx#: [id number] Potassium Chloride 20 mEq/100 100 / 100 mL 20 meq In 100 ml @ 100 mls/ hr IVPB Q1H [facility] Rx#:[id number] Oral 0 / 0 Output: Catheter 300 / 300 400 / 400 2100 / 2100 Gastric Drainage 70 / 70 Other: Weight 85.7 kg Blood Glucose* 115 127 Patient Weight 07/31/18 23:59 Weight 85.7 kg - Labs 07/31/18 03:25 07/31/18 03:25 Diabetes panel 07/30/18 07/31/18 Range/Units 14:58 03:25 Sodium 139 (136-145) mEq/L Potassium 3.9 3.4 L (3.5-5.1) mEq/L Chloride 109 H (98-107) mEq/L Carbon Dioxide 23 (23-29) mEq/L BUN 10 (8-23) mg/dL Creatinine 0.66 (0.60-1.20) mg/dL Glucose 143 H (70-105) mg/dL Calcium 8.0 L (8.6-10.3) mg/dL Triglycerides 64 (< 150) mg/dL Calcium panel 07/30/18 07/31/18 Range/Units 14:58 03:25 Calcium 8.0 L (8.6-10.3) mg/dL Phosphorus 2.3 L 2.2 L (2.7-4.5) mg/dL Pituitary panel 07/30/18 07/31/18 Range/Units 14:58 03:25 Sodium 139 (136-145) mEq/L Potassium 3.9 3.4 L (3.5-5.1) mEq/L Chloride 109 H (98-107) mEq/L Carbon Dioxide 23 (23-29) mEq/L BUN 10 (8-23) mg/dL Creatinine 0.66 (0.60-1.20) mg/dL Glucose 143 H (70-105) mg/dL Calcium 8.0 L (8.6-10.3) mg/dL Adrenal panel 07/30/18 07/31/18 Range/Units 14:58 03:25 Sodium 139 (136-145) mEq/L Potassium 3.9 3.4 L (3.5-5.1) mEq/L Chloride 109 H (98-107) mEq/L Carbon Dioxide 23 (23-29) mEq/L BUN 10 (8-23) mg/dL Creatinine 0.66 (0.60-1.20) mg/dL Glucose 143 H (70-105) mg/dL Calcium 8.0 L (8.6-10.3) mg/dL - Attending Attestation I examined this patient and my medical decision-making was reviewed with the Resident Physician. I agree with the documented findings, disposition and treatment plan as described except to the extent set forth below. The patient is seen and evaluated on morning rounds with the resident and the clinical nurse practitioner. She has no active bleeding. She was unable to tolerate the bowel prep. Each time to the bowel prep was given it was simply withdrawn as a residual from her nasogastric tube. At this point I think it is reasonable to have her come off the ventilator and we will watch her closely for any signs of bleeding. She will require EGD and colonoscopy prior to finalization of her surgical plan. It is still unclear as to whether the unresectable polyp is the source of the bleeding. Armen Francois MD FACS
[2018-07-31] MEDS: Insulin LISPRO 300 UNITS/3 ML VIAL SQ SCH ×3 (07:03→19:25)
--- NOTE | 2018-07-31 07:24 | Pulmonology Progress Note ---
<Reji Rolon W - Last Filed: 07/31/18 12:06> Date of Encounter: 07/31/18 Assessment and Plan (1) Acute respiratory failure Current Visit: Yes Status: Acute Qualifiers: Respiratory failure complication: hypoxia Qualified Code(s): J96.01 - Acute respiratory failure with hypoxia (2) Hypotension Current Visit: Yes Status: Acute Qualifiers: Hypotension type: unspecified hypotension type Qualified Code(s): I95.9 - Hypotension, unspecified (3) Sepsis Current Visit: Yes Status: Acute Qualifiers: Sepsis type: sepsis due to unspecified organism Qualified Code(s): A41.9 - Sepsis, unspecified organism (4) Lower gastrointestinal hemorrhage Current Visit: Yes Status: Acute Objective PUL Vital signs: Last Vital Signs Temp 98.8 F 07/31/18 11:14 Pulse 80 07/31/18 09:00 Resp 14 07/31/18 10:02 BP 118/51 07/31/18 10:02 Pulse Ox 100 07/31/18 10:02 Ventilator Settings Ventilator Settings: Ventilator Settings, Last 8 Hours Ventilator Tidal Volume 450 Setting Ventilator Tidal Volume 450 Setting Ventilator Tidal Volume 450 Setting Ventilator Tidal Volume 450 Setting Ventilator Tidal Volume 500 Setting Ventilator Respiratory Rate 12 Setting Ventilator Respiratory Rate 12 Setting Ventilator Respiratory Rate 12 Setting Ventilator Respiratory Rate 12 Setting Ventilator Respiratory Rate 12 Setting Actual Respiratory Rate 14 Actual Respiratory Rate 16 Actual Respiratory Rate 16 Actual Respiratory Rate 22 Actual Respiratory Rate 15 Positive End Expiratory 5 Pressure Positive End Expiratory 5 Pressure Positive End Expiratory 5 Pressure Positive End Expiratory 5 Pressure Positive End Expiratory 5 Pressure Positive End Expiratory 5 Pressure Peak Inspiratory Airway 13 Pressure Peak Inspiratory Airway 24 Pressure Peak Inspiratory Airway 22 Pressure Peak Inspiratory Airway 13 Pressure Peak Inspiratory Airway 19 Pressure Results - Laboratory Findings CBC and BMP: 07/31/18 03:25 07/31/18 03:25 ABG ABG pH 7.46 pH Units (7.32-7.45) H 07/31/18 05:11 ABG pCO2 33 mmHg (35-45) L 07/31/18 05:11 ABG pO2 63 mmHg (85-104) L 07/31/18 05:11 ABG O2 Saturation 93 % (95-98) L 07/31/18 05:11 PT/INR, D-dimer PT 13.5 Seconds (9.4-12.1) H 07/28/18 05:17 Abnormal lab findings: Abnormal lab results WBC 11.2 K/mcL (4.3-11.1) H 07/31/18 03:25 RBC 2.79 M/mcL (3.82-4.97) L 07/31/18 03:25 Hgb 8.7 g/dL (11.5-15.4) L 07/31/18 03:25 Hct 25.8 % (35.3-44.9) L 07/31/18 03:25 RDW 14.6 % (11.5-14.5) H 07/31/18 03:25 PT 13.5 Seconds (9.4-12.1) H 07/28/18 05:17 ABG pH 7.46 pH Units (7.32-7.45) H 07/31/18 05:11 ABG pCO2 33 mmHg (35-45) L 07/31/18 05:11 ABG pO2 63 mmHg (85-104) L 07/31/18 05:11 ABG O2 Saturation 93 % (95-98) L 07/31/18 05:11 Potassium 3.4 mEq/L (3.5-5.1) L 07/31/18 03:25 Chloride 109 mEq/L (98-107) H 07/31/18 03:25 Glucose 143 mg/dL (70-105) H 07/31/18 03:25 POC Glucose 127 mg/dL (70-99) H 07/31/18 11:11 Calcium 8.0 mg/dL (8.6-10.3) L 07/31/18 03:25 Phosphorus 2.2 mg/dL (2.7-4.5) L 07/31/18 03:25 Prealbumin 10.3 mg/dL (17.0-34.0) L 07/31/18 03:25 Urine Clarity Cloudy (Clear) A 07/29/18 08:15 Urine Nitrite Positive (Negative) A 07/29/18 08:15 Ur Leukocyte Esterase Moderate (Negative) H 07/29/18 08:15 Urine Microscopic WBC 15-30 per hpf (0-3) H 07/29/18 08:15 Ur Squamous Epith Cells Moderate per lpf (None-Few) H 07/29/18 08:15 Urine Bacteria Many per hpf (None-Few) H 07/29/18 08:15 Ur Culture Indicated? YES (NO) A 07/29/18 08:15 Stool Occult Bld Scrn Positive (Negative) A 07/26/18 13:50 - Microbiology Findings Microbiology Findings: Microbiology, Last 48 Hours 07/29/18 08:15 Urine Culture - Final Urine,[place] Klebsiella [email or web address] pneumoniae 07/29/18 11:35 Sputum Culture - Preliminary Sputum 07/29/18 08:15 Legionella Antigen - Final Urine,[place] 07/29/18 08:15 Streptococcus pneumoniae Antigen (M - Final Urine,[place] 07/29/18 08:28 Blood Culture - Preliminary Peripheral Venipuncture Culture is incubating and being continuously monitored for growth. Final report to follow. 07/29/18 08:27 Blood Culture - Preliminary Peripheral Venipuncture Culture is incubating and being continuously monitored for growth. Final report to follow. - Clinical Findings Intake & Output: Intake & Output 07/30/18 07/31/18 07/31/18 23:59 07:59 15:59 Intake Total 245 / 245 802 / 802 542.7 / 542.7 Output Total 300 / 300 470 / 470 2100 / 2100 Balance -55 / -55 332 / 332 -1557.3 / -1557.3 Weight 85.7 kg Consult Discharge Plan - Plan Referrals: Xavier Alvarez DO [Primary Care Provider] - - Attending Attestation I examined this patient and my medical decision-making was reviewed with the Resident Physician. I agree with the documented findings, disposition and treatment plan as described except to the extent set forth below. We independently had [id number] contact with the patient Patient seen and examined at bedside Labs, radiology, chart personally reviewed. Management was reviewed during multidisciplinary critical care rounds. PRICING ASSOCIATE: Patient is awake and alert mildly sedated but able to follow commands Pulm: Respiratory failure on vent acceptable gas exchange and weaning parameters today plan for liberation Cards: On it. She is off vasopressor and is stable plan for gentle diuresis today GI: No further evidence of gastrointestinal hemorrhage general surgery is on inclined to perform any additional procedure at this time pending repeat hemorrhage Nutrition: For now NPO Renal: UOP Monitored, Cont to Trend sCr and monitor Electrolytes. ID: She is on antibiotics for Klebsiella urinary tract infection we will de- escalate based upon sensitivities Heme/Onc: H&H stable continue mechanical DVT prophylaxis Endo: Glucose Monitored Integ/MSK: Skin Care per routine ICU Nursing Protocol to prevent ulcers. Lines: All lines examined without evidence of infection : Dispo: Remain in ICU for vent management I suspect after vent liberation she can be discharged from the ICU to the floor tomorrow CODE: Full. <Jihan Bell N - Last Filed: 07/31/18 13:44> Date of Encounter: 07/31/18 Time of Encounter: 07:24 Assessment and Plan (1) Lower gastrointestinal hemorrhage Current Visit: Yes Status: Acute This is a 67-year-old female with past medical history significant for hypertension, CVA on Plavix, history of colectomy 18 years ago, GERD who initially presented to the ED with rectal bleeding. - Pt had colonoscopy previously which showed precancerous lesion at ileocecal junction - lesion deemed unresectable per surgery, and patient was recommended to undergo ileocecal colectomy - Evening 07/27/18: Noted to have multiple small bloody bowel movements. Hb dropped from 9.6 --> 8.0. Rapid Response called - patient became symptomatic, with SOB, abdominal pain, diaphoresis, tachycardia, and increased lethargy. - Pt intubated and brought to ICU; Femoral line placed - Given 2U PRBCs - CT abd/pelvis: showed no evidence of GI hemorrhage - NG Tube placed - negative for bloody output - Bleeding Scan demonstrated no evidence of GI bleed Hemoglobin and hematocrit have remained stable over the last several days. Per review of surgery notes, bowel prep was attempted via OG tube; however, this has been unsuccessful. Patient has not had any recurrent bleeding episodes thus far. PLAN: - Continue close monitoring of vital signs. - Monitor hemoglobin and hematocrit; plan to transfuse if Hb < 7.0 - Per surgery team, patient likely has ileus, as evidenced by lack of bowel movement and increased gastric residuals. Plan to await return of bowel function, then attempt traditional bowel prep and endoscopy. (2) Hypotension Current Visit: Yes Status: Acute Appears resolved. Likely secondary to acute blood loss from GI bleed. Continue close monitoring of vital signs. Qualifiers: Hypotension type: unspecified hypotension type Qualified Code(s): I95.9 - Hypotension, unspecified (3) Acute respiratory failure Current Visit: Yes Status: Acute Resolved. Patient successfully extubated this morning. Will continue to monitor. Qualifiers: Respiratory failure complication: hypoxia Qualified Code(s): J96.01 - Acute respiratory failure with hypoxia (4) UTI (urinary tract infection) Current Visit: Yes Status: Acute Urinalysis on 07/29/2018 was suspicious for infection, and urine culture demonstrated growth of K. pneumonia. - Continue zosyn, with deescalation of antibiotics as indicated based on antimicrobial sensitivities. Currently day 3 of therapy. (5) Hypothyroid Current Visit: No Status: Chronic - Continue home dose of levothyroxine 75mcg daily. Qualifiers: Hypothyroidism type: postablative Qualified Code(s): E89.0 - Postprocedural hypothyroidism (6) DVT prophylaxis Current Visit: No Status: Acute - Continue SCDs Subjective Principal diagnosis: Gastrointestinal Bleeding Interval history: Patient was admitted to the ICU due to severe hypotension following significant gastrointestinal bleeding. Her hemoglobin and hematocrit have remained stable over the past 72 hours, with no grossly bloody stool noted. She is an established patient of Dr. Francois, who has been awaiting successful bowel prep prior to proceeding with EGD/colonoscopy; however, this has been unsuccessful with prep administered via trickle feed. Nursing staff reports that family is very concerned about the patient's prolonged intubation, and reports that they like to see her extubated, particularly if there is no immediate plan for surgery or other endoscopy. Nursing staff reports that blood pressures have remained stable, except after administration of Precedex. Objective PUL Vital signs: Last Vital Signs Temp 99.8 F H 07/31/18 07:00 Pulse 73 07/31/18 06:00 Resp 17 07/31/18 06:18 BP 118/53 07/31/18 06:18 Pulse Ox 98 07/31/18 06:18 GENERAL: Well-developed well-nourished adult female in no acute distress. She is sedated, but opens her eyes to voice and follows commands. HEENT: Atraumatic and normocephalic. Endotracheal tube in place. CARDIOVASCULAR: Regular rate and rhythm. S1 and S2 present. No murmurs, gallops, or rubs. RESPIRATORY: Clear bilaterally. Chest rises and falls symmetrically with no accessory muscle use noted. GASTROINTESTINAL: Active bowel sounds x4 quadrants. Abdomen is soft and nondistended. Patient grimaces with palpation. EXTREMITIES: No clubbing, cyanosis, or edema present. SCDs in place on bilateral lower extremities. SKIN: Warm, dry, and intact. NEUROLOGIC: Patient opens her eyes to voice and follows commands. No apparent focal deficits present. Ventilator Settings Ventilator Settings: Ventilator Settings, Last 8 Hours Ventilator Tidal Volume 450 Setting Ventilator Tidal Volume 450 Setting Ventilator Tidal Volume 450 Setting Ventilator Tidal Volume 450 Setting Ventilator Tidal Volume 500 Setting Ventilator Tidal Volume 500 Setting Ventilator Tidal Volume 500 Setting Ventilator Tidal Volume 450 Setting Ventilator Tidal Volume 500 Setting Ventilator Tidal Volume 500 Setting Ventilator Tidal Volume 500 Setting Ventilator Tidal Volume 500 Setting Ventilator Tidal Volume 500 Setting Ventilator Tidal Volume 500 Setting Ventilator Tidal Volume 500 Setting Ventilator Tidal Volume 500 Setting Ventilator Tidal Volume 500 Setting Ventilator Tidal Volume 500 Setting Ventilator Tidal Volume 450 Setting Ventilator Respiratory Rate 12 Setting Ventilator Respiratory Rate 12 Setting Ventilator Respiratory Rate 12 Setting Ventilator Respiratory Rate 12 Setting Ventilator Respiratory Rate 12 Setting Ventilator Respiratory Rate 12 Setting Ventilator Respiratory Rate 12 Setting Ventilator Respiratory Rate 12 Setting Ventilator Respiratory Rate 12 Setting Ventilator Respiratory Rate 12 Setting Ventilator Respiratory Rate 12 Setting Ventilator Respiratory Rate 12 Setting Ventilator Respiratory Rate 12 Setting Ventilator Respiratory Rate 12 Setting Ventilator Respiratory Rate 12 Setting Ventilator Respiratory Rate 12 Setting Ventilator Respiratory Rate 12 Setting Ventilator Respiratory Rate 12 Setting Ventilator Respiratory Rate 12 Setting Actual Respiratory Rate 16 Actual Respiratory Rate 16 Actual Respiratory Rate 22 Actual Respiratory Rate 15 Actual Respiratory Rate 14 Actual Respiratory Rate 15 Actual Respiratory Rate 20 Actual Respiratory Rate 14 Actual Respiratory Rate 15 Actual Respiratory Rate 13 Actual Respiratory Rate 14 Actual Respiratory Rate 13 Actual Respiratory Rate 13 Actual Respiratory Rate 13 Actual Respiratory Rate 13 Actual Respiratory Rate 13 Actual Respiratory Rate 17 Actual Respiratory Rate 14 Positive End Expiratory 5 Pressure Positive End Expiratory 5 Pressure Positive End Expiratory 5 Pressure Positive End Expiratory 5 Pressure Positive End Expiratory 5 Pressure Positive End Expiratory 5 Pressure Positive End Expiratory 5 Pressure Positive End Expiratory 5 Pressure Positive End Expiratory 5 Pressure Positive End Expiratory 5 Pressure Positive End Expiratory 5 Pressure Positive End Expiratory 5 Pressure Positive End Expiratory 5 Pressure Positive End Expiratory 5 Pressure Positive End Expiratory 5 Pressure Positive End Expiratory 5 Pressure Positive End Expiratory 5 Pressure Positive End Expiratory 5 Pressure Positive End Expiratory 5 Pressure Peak Inspiratory Airway 24 Pressure Peak Inspiratory Airway 22 Pressure Peak Inspiratory Airway 13 Pressure Peak Inspiratory Airway 19 Pressure Peak Inspiratory Airway 21 Pressure Peak Inspiratory Airway 16 Pressure Peak Inspiratory Airway 17 Pressure Peak Inspiratory Airway 25 Pressure Peak Inspiratory Airway 20 Pressure Peak Inspiratory Airway 20 Pressure Peak Inspiratory Airway 27 Pressure Peak Inspiratory Airway 24 Pressure Peak Inspiratory Airway 27 Pressure Peak Inspiratory Airway 24 Pressure Peak Inspiratory Airway 23 Pressure Peak Inspiratory Airway 24 Pressure Peak Inspiratory Airway 23 Pressure Peak Inspiratory Airway 25 Pressure Results - Laboratory Findings CBC and BMP: 07/31/18 13:10 07/31/18 03:25 ABG ABG pH 7.46 pH Units (7.32-7.45) H 07/31/18 05:11 ABG pCO2 33 mmHg (35-45) L 07/31/18 05:11 ABG pO2 63 mmHg (85-104) L 07/31/18 05:11 ABG O2 Saturation 93 % (95-98) L 07/31/18 05:11 PT/INR, D-dimer PT 13.5 Seconds (9.4-12.1) H 07/28/18 05:17 Abnormal lab findings: Abnormal lab results WBC 11.2 K/mcL (4.3-11.1) H 07/31/18 03:25 RBC 2.79 M/mcL (3.82-4.97) L 07/31/18 03:25 Hgb 8.7 g/dL (11.5-15.4) L 07/31/18 03:25 Hct 25.8 % (35.3-44.9) L 07/31/18 03:25 RDW 14.6 % (11.5-14.5) H 07/31/18 03:25 PT 13.5 Seconds (9.4-12.1) H 07/28/18 05:17 ABG pH 7.46 pH Units (7.32-7.45) H 07/31/18 05:11 ABG pCO2 33 mmHg (35-45) L 07/31/18 05:11 ABG pO2 63 mmHg (85-104) L 07/31/18 05:11 ABG O2 Saturation 93 % (95-98) L 07/31/18 05:11 Potassium 3.4 mEq/L (3.5-5.1) L 07/31/18 03:25 Chloride 109 mEq/L (98-107) H 07/31/18 03:25 Glucose 143 mg/dL (70-105) H 07/31/18 03:25 POC Glucose 115 mg/dL (70-99) H 07/31/18 06:22 Calcium 8.0 mg/dL (8.6-10.3) L 07/31/18 03:25 Phosphorus 2.2 mg/dL (2.7-4.5) L 07/31/18 03:25 Prealbumin 10.3 mg/dL (17.0-34.0) L 07/31/18 03:25 Urine Clarity Cloudy (Clear) A 07/29/18 08:15 Urine Nitrite Positive (Negative) A 07/29/18 08:15 Ur Leukocyte Esterase Moderate (Negative) H 07/29/18 08:15 Urine Microscopic WBC 15-30 per hpf (0-3) H 07/29/18 08:15 Ur Squamous Epith Cells Moderate per lpf (None-Few) H 07/29/18 08:15 Urine Bacteria Many per hpf (None-Few) H 07/29/18 08:15 Ur Culture Indicated? YES (NO) A 07/29/18 08:15 Stool Occult Bld Scrn Positive (Negative) A 07/26/18 13:50 - Microbiology Findings Microbiology Findings: Microbiology, Last 48 Hours 07/29/18 08:15 Urine Culture - Preliminary Urine,[place] Gram Negative Bear 07/29/18 11:35 Sputum Culture - Preliminary Sputum 07/29/18 08:15 Legionella Antigen - Final Urine,[place] 07/29/18 08:15 Streptococcus pneumoniae Antigen (M - Final Urine,[place] 07/29/18 08:28 Blood Culture - Preliminary Peripheral Venipuncture Culture is incubating and being continuously monitored for growth. Final report to follow. 07/29/18 08:27 Blood Culture - Preliminary Peripheral Venipuncture Culture is incubating and being continuously mon itored for growth. Final report to follow. - Clinical Findings Intake & Output: Intake & Output 07/30/18 07/30/18 07/31/18 15:59 23:59 07:59 Intake Total 904 / 904 200 / 200 699 / 699 Output Total 750 / 750 300 / 300 470 / 470 Balance 154 / 154 -100 / -100 229 / 229 Weight 85.7 kg
[2018-07-31] MEDS: FentaNYL (PF) 1,000 MCG in 0.9 % Sodium Chloride 80 ML IVC SCH (07:41)
[2018-07-31] MEDS: Piperacillin/Tazobactam 3.375 GM in 0.9 % Sodium Chloride Mini Bag 100 ML IVPB SCH (07:47)
[2018-07-31] MEDS: Chlorhexidine Rinse 15 ML MOUTHWASH MM SCH ×2 (07:47→21:23)
[2018-07-31] MEDS ORDERED: Furosemide 20 MG/2 ML VIAL IVP ONE (08:12)
[2018-07-31] MEDS ORDERED: Potassium Phosphate 44 MEQ in 0.9 % Sodium Chloride 250 ML IVPB PRN (09:54)
[2018-07-31 09:58] LABS: VBG Ionized Calcium 1.15 mmol/L (1.15-1.35)
[2018-07-31] MEDS ORDERED: *HR* Alteplase (Cathflo) 2 MG VIAL IVP ONE (13:11)
[2018-07-31 13:26] LABS: Hematocrit 25.9 % (35.3-44.9); Hemoglobin 8.7 g/dL (11.5-15.4)
[2018-07-31] MEDS ORDERED: Clinimix E 5%-15% SOLUTION 2,000 ML with MVI, adult with vitamin K 10 ML IVC SCH (17:00)
[2018-08-01] MEDS: Artificial Tears SOLN 15 ML BOTTLE BOTH EYES SCH ×3 (00:26→09:46)
[2018-08-01] MEDS: Insulin LISPRO 300 UNITS/3 ML VIAL SQ SCH ×5 (00:26→23:30)
[2018-08-01 04:55] LABS: Basophils % 0.2 %; Eosinophils # 0.2 K/mcL (0.0-0.6); Eosinophils % 1.8 %; Hematocrit 25.7 % (35.3-44.9); Hemoglobin 8.6 g/dL (11.5-15.4); Immature Granulocytes % 0.5 % (0-4); Lymphocytes % 11.2 %; Mean Corpuscular HGB Conc 33.5 g/dL (31.6-35.5); Mean Corpuscular Hemoglobin 30.8 pg (28.0-33.3); Mean Corpuscular Volume 92.1 fL (83.0-100.0); Mean Platelet Volume 10.4 fL (9.4-12.4); Monocytes # 0.7 K/mcL (0.0-1.3); Monocytes % 7.8 %; Neutrophils # 6.7 K/mcL (1.6-8.9); Platelet Count 210 K/mcL (140-400); Red Blood Count 2.79 M/mcL (3.82-4.97); Red Cell Distribution Width 14.4 % (11.5-14.5); Segmented Neutrophils % 78.5 %
[2018-08-01 05:11] LABS: BUN/Creatinine Ratio 20 (6-26); Blood Urea Nitrogen 10 mg/dL (8-23); Calcium 8.5 mg/dL (8.6-10.3); Carbon Dioxide 30 mEq/L (23-29); Chloride 106 mEq/L (98-107); Glucose 134 mg/dL (70-105); Osmolality,Calculated 293 (280-300); Sodium 141 mEq/L (136-145); eGFR For Non-African Americans > 60 (> 60)
[2018-08-01 05:33] LABS: Magnesium 1.7 mg/dL (1.6-2.6); Phosphorous 2.5 mg/dL (2.7-4.5)
[2018-08-01] MEDS: Levothyroxine Sodium 100 MCG VIAL IVP SCH (05:38)
[2018-08-01] MEDS: Potassium Chloride 40 MEQ/200 ML BAG IVPB PRN ×3 (05:39→19:14)
[2018-08-01] MEDS ORDERED: Pantoprazole 40 MG VIAL IVP SCH ×2 (07:30→21:00)
--- NOTE | 2018-08-01 09:25 | Pulmonology Progress Note ---
Addendum entered and electronically signed by Martin Jackson MD 08/02/18 14:18: Patient has Acute on Chronic Blood loss anemia due to GI bleed Original Note: <[place] - Last Filed: 08/01/18 15:09> Date of Encounter: 08/01/18 Time of Encounter: 11:44 Assessment and Plan (1) Acute respiratory failure Current Visit: Yes Status: Acute Patient was extubated and currently on nasal cannula 94% 2L. Plan: Continue nasal cannula. Qualifiers: Respiratory failure complication: hypoxia Qualified Code(s): J96.01 - Acute respiratory failure with hypoxia (2) Sepsis Current Visit: Yes Status: Acute Patient most recently has temperature 98.9, pulse 71, respiratory rate 20, BP 88/41, WBC 14.2. Currently does not meet sepsis criteria. BP 123/49 - Sputum cultures 07/29 negative - blood cultures pending. - Urine renee culture positive for klebsiella R to ampicillin, sensitive to all other antibiotics. Plan: Patient has been hypotensive during her hospital stay. Continue pressors. Continue norepi titration Qualifiers: Sepsis type: sepsis due to unspecified organism Qualified Code(s): A41.9 - Sepsis, unspecified organism (3) Lower gastrointestinal hemorrhage Current Visit: Yes Status: Acute Patient's hemoglobin currently 8.6. Dr. Francois plans to do possible colonoscopy and endoscopy tomorrow morning depending on success of bowel prep. Her CT scan showed no active GI bleed. Plan: Monitor hemoglobin levels and Transfuse if hemoglobin less than 7.0. Serial abdominal exams. Patient currently on alprazolam regimen for possible colonoscopy but has not had a bowel movement yet. (4) Hypotension Current Visit: Yes Status: Acute Patient currently hypotensive at 123/49. She is on norepinephrine 4 mg IV continuous. Plan: Continue norepinephrine drip. Qualifiers: Hypotension type: unspecified hypotension type Qualified Code(s): I95.9 - Hypotension, unspecified (5) Upper extremity embolism Current Visit: Yes Status: Acute Patient complains of pain the left anticuibital fossa with tenderness, warmth. Ordered LUE venous doppler with pending report. Prelim report showed swelling of LUE veins. Will repeat Dopper for now. Patient currently has GI hemorrhage so will not start blood thinners for now. Dr. Jackson spoke with family, pending treatment decision. (6) DVT prophylaxis Current Visit: No Status: Acute SCDs Subjective Principal diagnosis: Gastrointestinal Bleeding Interval history: 67-year-old female here for [facility]. Patient was extubated yesterday and sedation a stopped. She is able to communicate. States that she is having diffuse pain most likely from sitting in bed for 2 days. Patient had a bowel movement last night that was bloody. Repeat hemoglobin this morning shows stable hemoglobin around 8. Spoke to Dr. Francois today and he states that he will potentially to colonoscopy and endoscopy to tomorrow if bowel prep is successful. Objective PUL Vital signs: Last Vital Signs Temp 98.1 F 08/01/18 07:40 Pulse 81 08/01/18 07:55 Resp 12 08/01/18 07:55 BP 101/44 08/01/18 07:55 Pulse Ox 98 08/01/18 07:55 General appearance: no acute distress, appears uncomfortable Eyes: nonicteric Effort: normal Auscultation: bilateral: clear Cardiovascular: regular rate and rhythm Gastrointestinal: normoactive bowel sounds, non-tender, other (Mild distention no hepatomegaly no splenomegaly noted. Nontender to palpation.) Extremities: other (Patient notes tenderness in left antecubital fossa. Doppler was ordered and a d) normal mental status Results - Laboratory Findings CBC and BMP: 08/01/18 10:00 08/01/18 04:30 ABG ABG pH 7.46 pH Units (7.32-7.45) H 07/31/18 05:11 ABG pCO2 33 mmHg (35-45) L 07/31/18 05:11 ABG pO2 63 mmHg (85-104) L 07/31/18 05:11 ABG O2 Saturation 93 % (95-98) L 07/31/18 05:11 PT/INR, D-dimer PT 13.5 Seconds (9.4-12.1) H 07/28/18 05:17 Abnormal lab findings: Abnormal lab results RBC 2.79 M/mcL (3.82-4.97) L 08/01/18 04:30 Hgb 8.6 g/dL (11.5-15.4) L 08/01/18 04:30 Hct 25.7 % (35.3-44.9) L 08/01/18 04:30 PT 13.5 Seconds (9.4-12.1) H 07/28/18 05:17 ABG pH 7.46 pH Units (7.32-7.45) H 07/31/18 05:11 ABG pCO2 33 mmHg (35-45) L 07/31/18 05:11 ABG pO2 63 mmHg (85-104) L 07/31/18 05:11 ABG O2 Saturation 93 % (95-98) L 07/31/18 05:11 Potassium 3.0 mEq/L (3.5-5.1) L 08/01/18 04:30 Carbon Dioxide 30 mEq/L (23-29) H 08/01/18 04:30 Creatinine 0.51 mg/dL (0.60-1.20) L 08/01/18 04:30 Glucose 134 mg/dL (70-105) H 08/01/18 04:30 POC Glucose 135 mg/dL (70-99) H 07/31/18 23:55 Calcium 8.5 mg/dL (8.6-10.3) L 08/01/18 04:30 Phosphorus 2.5 mg/dL (2.7-4.5) L 08/01/18 04:30 Prealbumin 10.3 mg/dL (17.0-34.0) L 07/31/18 03:25 Urine Clarity Cloudy (Clear) A 07/29/18 08:15 Urine Nitrite Positive (Negative) A 07/29/18 08:15 Ur Leukocyte Esterase Moderate (Negative) H 07/29/18 08:15 Urine Microscopic WBC 15-30 per hpf (0-3) H 07/29/18 08:15 Ur Squamous Epith Cells Moderate per lpf (None-Few) H 07/29/18 08:15 Urine Bacteria Many per hpf (None-Few) H 07/29/18 08:15 Ur Culture Indicated? YES (NO) A 07/29/18 08:15 Stool Occult Bld Scrn Positive (Negative) A 07/26/18 13:50 - Microbiology Findings Microbiology Findings: Microbiology, Last 48 Hours 07/29/18 11:35 Sputum Culture - Final Sputum 07/29/18 08:15 Urine Culture - Final Urine,[place] Klebsiella pneu.ssp pneumoniae - Clinical Findings Intake & Output: Intake & Output 07/31/18 08/01/1819 23:59 07:59 15:59 Intake Total 0 / 0 350 / 350 Output Total 200 / 200 1325 / 1325 Balance -200 / -200 -975 / -975 Weight 83.9 kg Consult Discharge Plan - Plan Referrals: Xavier Alvarez DO [Primary Care Provider] - <Martin Jackson - Last Filed: 08/01/18 16:45> Date of Encounter: 08/01/18 Objective PUL Vital signs: Last Vital Signs Temp 98.4 F 08/01/18 16:25 Pulse 72 08/01/18 14:00 Resp 14 08/01/18 14:00 BP 92/60 08/01/18 14:00 Pulse Ox 96 08/01/18 14:00 Results - Laboratory Findings CBC and BMP: 08/01/18 10:00 08/01/18 04:30 ABG ABG pH 7.46 pH Units (7.32-7.45) H 07/31/18 05:11 ABG pCO2 33 mmHg (35-45) L 07/31/18 05:11 ABG pO2 63 mmHg (85-104) L 07/31/18 05:11 ABG O2 Saturation 93 % (95-98) L 07/31/18 05:11 PT/INR, D-dimer PT 13.5 Seconds (9.4-12.1) H 07/28/18 05:17 Abnormal lab findings: Abnormal lab results RBC 2.72 M/mcL (3.82-4.97) L 08/01/18 10:00 Hgb 8.4 g/dL (11.5-15.4) L 08/01/18 10:00 Hct 25.3 % (35.3-44.9) L 08/01/18 10:00 PT 13.5 Seconds (9.4-12.1) H 07/28/18 05:17 ABG pH 7.46 pH Units (7.32-7.45) H 07/31/18 05:11 ABG pCO2 33 mmHg (35-45) L 07/31/18 05:11 ABG pO2 63 mmHg (85-104) L 07/31/18 05:11 ABG O2 Saturation 93 % (95-98) L 07/31/18 05:11 Potassium 3.0 mEq/L (3.5-5.1) L 08/01/18 04:30 Carbon Dioxide 30 mEq/L (23-29) H 08/01/18 04:30 Creatinine 0.51 mg/dL (0.60-1.20) L 08/01/18 04:30 Glucose 134 mg/dL (70-105) H 08/01/18 04:30 POC Glucose 130 mg/dL (70-99) H 08/01/18 11:32 Calcium 8.5 mg/dL (8.6-10.3) L 08/01/18 04:30 Phosphorus 2.5 mg/dL (2.7-4.5) L 08/01/18 04:30 Prealbumin 10.3 mg/dL (17.0-34.0) L 07/31/18 03:25 Urine Clarity Cloudy (Clear) A 07/29/18 08:15 Urine Nitrite Positive (Negative) A 07/29/18 08:15 Ur Leukocyte Esterase Moderate (Negative) H 07/29/18 08:15 Urine Microscopic WBC 15-30 per hpf (0-3) H 07/29/18 08:15 Ur Squamous Epith Cells Moderate per lpf (None-Few) H 07/29/18 08:15 Urine Bacteria Many per hpf (None-Few) H 07/29/18 08:15 Ur Culture Indicated? YES (NO) A 07/29/18 08:15 Stool Occult Bld Scrn Positive (Negative) A 07/26/18 13:50 - Microbiology Findings Microbiology Findings: Microbiology, Last 48 Hours 07/29/18 11:35 Sputum Culture - Final Sputum 07/29/18 08:15 Urine Culture - Final Urine,[place] Klebsiella pneu.ssp pneumoniae - Clinical Findings Intake & Output: Intake & Output 08/01/18 08/01/18 08/01/18 07:59 15:59 23:59 Intake Total 350 / 350 1564 / 1564 Output Total 1325 / 1325 300 / 300 500 / 500 Balance -975 / -975 1264 / 1264 -500 / -500 Weight 83.9 kg 84 kg - Attending Attestation I saw and evaluated this patient and my medical decision-making was reviewed with the Resident Physician. I agree with the documented findings, disposition and treatment plan as described except to the extent set forth below. We independently had [id number] contact with the patient Patient seen and examined at bedside Labs, radiology, chart personally reviewed. [employer]: Patient is conscious oriented no evidence of toxic/metabolic encephalopathy at the moment Pulm: Patient has acceptable oxygenation and ventilation to cover for both UTI and pneumonia Cards: Patient is off vasopressors more than 12 hours FEN-GI: Patient is on TPN as patient is nothing by mouth with a GI bleed. Ration is getting bowel prep most likely endoscopy tomorrow Renal: Labs and output were reviewed ID: To monitor for UTI and pneumonia Heme/Onc: Labs reviewed hemoglobin is stable Endo: Glucose Monitored Integ/MSK: Skin Care per routine ICU Nursing Protocol to prevent ulcers. Lines: All lines examined without evidence of infection : Dispo: patient can be transferred to 2 N. CODE:Full Code
--- NOTE | 2018-08-01 09:30 | General Surgery Progress Note ---
<Tiana Haddad - Last Filed: 08/01/18 09:29> Date of Encounter: 08/01/18 Time of Encounter: 06:30 - Assessment and Plan (1) Lower gastrointestinal hemorrhage Current Visit: Yes Status: Acute Possibly secondary to diverticular bleed vs unresectable cecal polyp vs other source CTA abd showed no source of bleed RBC scan showed no active GI bleed NG showed no bloody output No active bleeding for 96 hours. Hb is stable. Bowel prep while patient was intubated did not go through. Re-try bowel prep today. Plan for colonoscopy today. Plan for EGD tomorrow. Serial abdominal exams Monitor Hb Transfuse if Hb <7.0. Continue to closely monitor (2) Colon polyp Current Visit: Yes Status: Acute Unresectable cecal polyp Plan for open ileocectomy in the future by Dr Francois Qualifiers: Colon polyp type: unspecified Colon location: ascending Qualified Code(s): D12.2 - Benign neoplasm of ascending colon (3) History of open sigmoidectomy Current Visit: Yes Status: Chronic History of sigmoid colectomy Subjective Narrative: Patient seen and examined. No acute events overnight. Patient is sleeping comfortably in bed. She is off sedation and ventilation. Patient is alert and oriented x3. Patient states shes doing okay. Denies fever, abdominal pain, or nausea/vomiting. States she made multiple bowel movements yesterday. Nurse reports that bowel movements showed old blood. No new blood. Nurse reports small volume stools. Patient admits feeling weak. Denies dizziness. Denies any other complaints. Objective Vital Signs - Last 8 Hours Temp Pulse Resp BP Pulse Ox 08/01/18 07:55 79 12 101/44 98 08/01/18 07:40 98.1 F 08/01/18 07:00 71 14 102/38 99 08/01/18 06:00 67 14 123/49 94 08/01/18 05:00 62 14 105/52 95 08/01/18 04:00 98.3 F 84 18 115/54 92 08/01/18 03:00 92 18 114/48 93 08/01/18 02:00 97 20 116/47 93 Intake and Output 07/31/18 08/01/18 08/01/18 23:59 07:59 15:59 Intake Total 0 / 0 350 / 350 Output Total 200 / 200 1325 / 1325 Balance -200 / -200 -975 / -975 Intake: IV Fluids 0 / 0 350 / 350 FentaNYL (PF) 1,000 MCG In 0.9 0 / 0 % Sodium Chloride 80 ML @ 50 MCG/HR 5 mls/hr IVC CONT [facility] Rx #:[id number] Intralipid 20% 250 ML @ 21 mls/ 250 / 250 hr IVPB DAILY@1700 [facility] Rx#: [id number] Potassium Chloride 20 mEq/100 100 / 100 mL 40 meq In 200 ml @ 100 mls/ hr IVPB Q1H PRN Rx#:[id number] Oral 0 / 0 Output: Catheter 200 / 200 1325 / 1325 Other: Stool Size Moderate Large Stool Consistency loose liquid soft Stool Characteristics Tarry Stool Color Dark Red Blood Black Dark Red Blood Weight 83.9 kg Blood Glucose* 117 135 Patient Weight 08/01/18 23:59 Weight 83.9 kg - Additional Exam VITAL SIGNS: Reviewed. See [facility] GENERAL: In no acute distress. HEENT: Normocephalic, atraumatic, pupils are equal and reactive, pupils are equal and reactive, extraocular motions intact, oral mucosa pink and moist. CHEST/RESPIRATORY: The thorax is free from signs of trauma. Lung sounds: clear to auscultation, normal respiratory effort CARDIAC: Regular rate and rhythm. Normal S1 and S2, without murmurs, gallops, or rubs. VASCULAR: No Edema. ABDOMEN: Soft, nondistended, nontender, bowel sounds present. MUSCULOSKELETAL: Good range of motion of all major joints. Extremities without clubbing, cyanosis or edema. NEUROLOGIC EXAM: Alert and oriented x 3. Speech normal. Follows commands. PSYCHIATRIC: Mood normal. SKIN: No rash or lesions. - Labs 08/01/18 04:30 08/01/18 04:30 Diabetes panel 08/01/18 Range/Units 04:30 Sodium 141 (136-145) mEq/L Potassium 3.0 L (3.5-5.1) mEq/L Chloride 106 (98-107) mEq/L Carbon Dioxide 30 H (23-29) mEq/L BUN 10 (8-23) mg/dL Creatinine 0.51 L (0.60-1.20) mg/dL Glucose 134 H (70-105) mg/dL Calcium 8.5 L (8.6-10.3) mg/dL Calcium panel 08/01/18 Range/Units 04:30 Calcium 8.5 L (8.6-10.3) mg/dL Phosphorus 2.5 L (2.7-4.5) mg/dL Pituitary panel 08/01/18 Range/Units 04:30 Sodium 141 (136-145) mEq/L Potassium 3.0 L (3.5-5.1) mEq/L Chloride 106 (98-107) mEq/L Carbon Dioxide 30 H (23-29) mEq/L BUN 10 (8-23) mg/dL Creatinine 0.51 L (0.60-1.20) mg/dL Glucose 134 H (70-105) mg/dL Calcium 8.5 L (8.6-10.3) mg/dL Adrenal panel 08/01/18 Range/Units 04:30 Sodium 141 (136-145) mEq/L Potassium 3.0 L (3.5-5.1) mEq/L Chloride 106 (98-107) mEq/L Carbon Dioxide 30 H (23-29) mEq/L BUN 10 (8-23) mg/dL Creatinine 0.51 L (0.60-1.20) mg/dL Glucose 134 H (70-105) mg/dL Calcium 8.5 L (8.6-10.3) mg/dL Consult Discharge Plan - Plan Referrals: Xavier Alvarez DO [Primary Care Provider] - <Armen rFancois - Last Filed: 08/01/18 14:34> Date of Encounter: 08/01/18 Objective Vital Signs - Last 8 Hours Temp Pulse Resp BP Pulse Ox 08/01/18 12:00 66 14 93/47 98 08/01/18 11:40 98.8 F 08/01/18 10:00 66 12 102/60 98 08/01/18 09:00 73 12 104/41 98 08/01/18 07:55 79 12 101/44 98 08/01/18 07:40 98.1 F 08/01/18 07:00 71 14 102/38 99 Intake and Output 07/31/18 08/01/18 08/01/18 23:59 07:59 15:59 Intake Total 0 / 0 350 / 350 464 / 464 Output Total 200 / 200 1325 / 1325 300 / 300 Balance -200 / -200 -975 / -975 164 / 164 Intake: IV Fluids 0 / 0 350 / 350 464 / 464 FentaNYL (PF) 1,000 MCG In 0.9 0 / 0 % Sodium Chloride 80 ML @ 50 MCG/HR 5 mls/hr IVC CONT [facility] Rx #:[id number] Intralipid 20% 250 ML @ 21 mls/ 250 / 250 hr IVPB DAILY@1700 [facility] Rx#: [id number] Magnesium Sulfate 2 GM In 0.9 % 104 / 104 Sodium Chloride 100 ML @ 52 mls/hr IVPB Q6H PRN Rx#: [id number] Potassium Chloride 20 mEq/100 100 / 100 100 / 100 mL 40 meq In 200 ml @ 100 mls/ hr IVPB Q1H PRN Rx#:[id number] Potassium Phosphate 44 MEQ In 0 260 / 260 .9 % Sodium Chloride 250 ML @ 40 mls/hr IVPB Q10H PRN Rx#: [id number] Oral 0 / 0 Output: Catheter 200 / 200 1325 / 1325 300 / 300 Other: Stool Size Moderate Large Small Stool Consistency loose liquid soft soft Stool Characteristics [place] Stool Color Dark Red Blood Black Black Dark Red Blood Weight 83.9 kg 84 kg Blood Glucose* 117 135 130 Patient Weight 08/01/18 23:59 Weight 84 kg - Labs 08/01/18 10:00 08/01/18 04:30 Diabetes panel 08/01/18 Range/Units 04:30 Sodium 141 (136-145) mEq/L Potassium 3.0 L (3.5-5.1) mEq/L Chloride 106 (98-107) mEq/L Carbon Dioxide 30 H (23-29) mEq/L BUN 10 (8-23) mg/dL Creatinine 0.51 L (0.60-1.20) mg/dL Glucose 134 H (70-105) mg/dL Calcium 8.5 L (8.6-10.3) mg/dL Calcium panel 08/01/18 Range/Units 04:30 Calcium 8.5 L (8.6-10.3) mg/dL Phosphorus 2.5 L (2.7-4.5) mg/dL Pituitary panel 08/01/18 Range/Units 04:30 Sodium 141 (136-145) mEq/L Potassium 3.0 L (3.5-5.1) mEq/L Chloride 106 (98-107) mEq/L Carbon Dioxide 30 H (23-29) mEq/L BUN 10 (8-23) mg/dL Creatinine 0.51 L (0.60-1.20) mg/dL Glucose 134 H (70-105) mg/dL Calcium 8.5 L (8.6-10.3) mg/dL Adrenal panel 08/01/18 Range/Units 04:30 Sodium 141 (136-145) mEq/L Potassium 3.0 L (3.5-5.1) mEq/L Chloride 106 (98-107) mEq/L Carbon Dioxide 30 H (23-29) mEq/L BUN 10 (8-23) mg/dL Creatinine 0.51 L (0.60-1.20) mg/dL Glucose 134 H (70-105) mg/dL Calcium 8.5 L (8.6-10.3) mg/dL - Attending Attestation I examined this patient and my medical decision-making was reviewed with the Resident Physician. I agree with the documented findings, disposition and treatment plan as described except to the extent set forth below. The patient is seen and evaluated. Proceed with colonoscopy bowel prep today. We will plan EGD and colonoscopy to try and identify the bleeding source. Armen Francois MD FACS
[2018-08-01] MEDS: Chlorhexidine Rinse 15 ML MOUTHWASH MM SCH (09:46)
[2018-08-01 10:19] LABS: Hematocrit 25.3 % (35.3-44.9); Hemoglobin 8.4 g/dL (11.5-15.4); Mean Corpuscular HGB Conc 33.2 g/dL (31.6-35.5); Mean Corpuscular Hemoglobin 30.9 pg (28.0-33.3); Platelet Count 204 K/mcL (140-400); Red Blood Count 2.72 M/mcL (3.82-4.97); Red Cell Distribution Width 14.4 % (11.5-14.5)
--- NOTE | 2018-08-01 11:12 | Pulmonology Progress Note ---
Date of Encounter: 08/01/18 Time of Encounter: 11:10 Assessment and Plan (1) Acute respiratory failure Current Visit: Yes Status: Acute Patient currently extubated yesterday on 2 L oxygen satting at 90%. Plan: Continue nasal cannula. Qualifiers: Respiratory failure complication: hypoxia Qualified Code(s): J96.01 - Acute respiratory failure with hypoxia (2) Sepsis Current Visit: Yes Status: Acute Patient most recently has temperature 98.9, pulse 71, respiratory rate 20, BP 88/41, WBC 14.2. Currently does not meet sepsis criteria with only 1 out of 4 criteria (WBC 14.2). Sepsis source pneumonia versus abdominal source. Sputum cultures 07/29, blood cultures pending. Plan: Patient has been hypotensive during her hospital stay. Continue pressors. 500 mL bolus of albumin 5% ordered Qualifiers: Sepsis type: sepsis due to unspecified organism Qualified Code(s): A41.9 - Sepsis, unspecified organism (3) Lower gastrointestinal hemorrhage Current Visit: Yes Status: Acute Patient's hemoglobin currently 9.2. Dr. Husain plans to do possible colonoscopy and endoscopy tomorrow morning depending on success of bowel prep. Her CT scan showed no active GI bleed. Plan: Monitor hemoglobin levels and Transfuse if hemoglobin less than 7.0. Serial abdominal exams. Patient currently on alprazolam regimen for possible colonoscopy but has not had a bowel movement yet. (4) Hypotension Current Visit: Yes Status: Acute Patient currently hypotensive at 88/41. She is on norepinephrine 4 mg IV continuous. Plan: Continue norepinephrine drip. Qualifiers: Hypotension type: unspecified hypotension type Qualified Code(s): I95.9 - Hypotension, unspecified (5) DVT prophylaxis Current Visit: No Status: Acute SCDs Subjective Principal diagnosis: Gastrointestinal Bleeding Interval history: 67-year-old female here for [facility]. Patient currently awake and responding to questions. She states that she has been diffuse pain most likely due to soreness from sitting in bed for 2 days. Otherwise no acute complaints. Objective PUL Vital signs: Last Vital Signs Temp 98.1 F 08/01/18 07:40 Pulse 66 08/01/18 10:00 Resp 12 08/01/18 10:00 BP 102/60 08/01/18 10:00 Pulse Ox 98 08/01/18 10:00 General appearance: no acute distress, alert, appears uncomfortable Eyes: nonicteric Neck: supple Effort: normal Auscultation: bilateral: clear Cardiovascular: regular rate and rhythm Gastrointestinal: normoactive bowel sounds, non-tender, other (Mild distention noted.) normal mental status Results - Laboratory Findings CBC and BMP: 08/01/18 10:00 08/01/18 04:30 ABG ABG pH 7.46 pH Units (7.32-7.45) H 07/31/18 05:11 ABG pCO2 33 mmHg (35-45) L 07/31/18 05:11 ABG pO2 63 mmHg (85-104) L 07/31/18 05:11 ABG O2 Saturation 93 % (95-98) L 07/31/18 05:11 PT/INR, D-dimer PT 13.5 Seconds (9.4-12.1) H 07/28/18 05:17 Abnormal lab findings: Abnormal lab results RBC 2.72 M/mcL (3.82-4.97) L 08/01/18 10:00 Hgb 8.4 g/dL (11.5-15.4) L 08/01/18 10:00 Hct 25.3 % (35.3-44.9) L 08/01/18 10:00 PT 13.5 Seconds (9.4-12.1) H 07/28/18 05:17 ABG pH 7.46 pH Units (7.32-7.45) H 07/31/18 05:11 ABG pCO2 33 mmHg (35-45) L 07/31/18 05:11 ABG pO2 63 mmHg (85-104) L 07/31/18 05:11 ABG O2 Saturation 93 % (95-98) L 07/31/18 05:11 Potassium 3.0 mEq/L (3.5-5.1) L 08/01/18 04:30 Carbon Dioxide 30 mEq/L (23-29) H 08/01/18 04:30 Creatinine 0.51 mg/dL (0.60-1.20) L 08/01/18 04:30 Glucose 134 mg/dL (70-105) H 08/01/18 04:30 POC Glucose 135 mg/dL (70-99) H 07/31/18 23:55 Calcium 8.5 mg/dL (8.6-10.3) L 08/01/18 04:30 Phosphorus 2.5 mg/dL (2.7-4.5) L 08/01/18 04:30 Prealbumin 10.3 mg/dL (17.0-34.0) L 07/31/18 03:25 Urine Clarity Cloudy (Clear) A 07/29/18 08:15 Urine Nitrite Positive (Negative) A 07/29/18 08:15 Ur Leukocyte Esterase Moderate (Negative) H 07/29/18 08:15 Urine Microscopic WBC 15-30 per hpf (0-3) H 07/29/18 08:15 Ur Squamous Epith Cells Moderate per lpf (None-Few) H 07/29/18 08:15 Urine Bacteria Many per hpf (None-Few) H 07/29/18 08:15 Ur Culture Indicated? YES (NO) A 07/29/18 08:15 Stool Occult Bld Scrn Positive (Negative) A 07/26/18 13:50 - Microbiology Findings Microbiology Findings: Microbiology, Last 48 Hours 07/29/18 11:35 Sputum Culture - Final Sputum 07/29/18 08:15 Urine Culture - Final Urine,[place] Klebsiella pneu.ssp pneumoniae - Clinical Findings Intake & Output: Intake & Output 07/31/18 08/01/18 08/01/18 23:59 07:59 15:59 Intake Total 0 / 0 350 / 350 Output Total 200 / 200 1325 / 1325 Balance -200 / -200 -975 / -975 Weight 83.9 kg 84 kg Consult Discharge Plan - Plan Referrals: Xavier Alvarez DO [Primary Care Provider] -
[2018-08-01] MEDS ORDERED: Ampicillin/Sulbactam 3,000 MG in 0.9 % Sodium Chloride Mini Bag 100 ML IVPB SCH ×2 (12:00→18:00)
[2018-08-01] MEDS ORDERED: Ampicillin/Sulbactam 1,500 MG in 0.9 % Sodium Chloride Mini Bag 100 ML IVPB SCH (12:00)
[2018-08-01] MEDS ORDERED: Ringers Solution, Lactated 1,000 ML IVC ONE (12:51)
[2018-08-01] MEDS ORDERED: Lidocaine -MPF 1% 5 ML AMPUL INFILT ONE ×2 (13:16→19:30)
[2018-08-01] MEDS ORDERED: cefTRIAXone 1,000 MG in Water for inj. (sterile) 20 ML 10 ML IVP SCH (14:00)
[2018-08-01] MEDS ORDERED: Clinimix E 5%-15% SOLUTION 2,000 ML with MVI, adult with vitamin K 10 ML IVC SCH ×2 (17:00→19:30)
[2018-08-01 17:14] LABS: Basophils % 0.3 %; Eosinophils # 0.2 K/mcL (0.0-0.6); Eosinophils % 2.7 %; Hematocrit 25.3 % (35.3-44.9); Hemoglobin 8.3 g/dL (11.5-15.4); Immature Granulocytes % 0.8 % (0-4); Lymphocytes # 1.2 K/mcL (0.6-4.6); Lymphocytes % 15.7 %; Mean Corpuscular HGB Conc 32.8 g/dL (31.6-35.5); Mean Corpuscular Hemoglobin 30.7 pg (28.0-33.3); Mean Corpuscular Volume 93.7 fL (83.0-100.0); Mean Platelet Volume 10.4 fL (9.4-12.4); Monocytes % 12.5 %; Neutrophils # 5.2 K/mcL (1.6-8.9); Platelet Count 219 K/mcL (140-400); Red Cell Distribution Width 14.4 % (11.5-14.5)
[2018-08-01 17:28] LABS: BUN/Creatinine Ratio 26 (6-26); Blood Urea Nitrogen 11 mg/dL (8-23); Calcium 8.3 mg/dL (8.6-10.3); Carbon Dioxide 30 mEq/L (23-29); Chloride 107 mEq/L (98-107); Glucose 125 mg/dL (70-105); Osmolality,Calculated 295 (280-300); Phosphorous 2.9 mg/dL (2.7-4.5); Potassium 3.5 mEq/L (3.5-5.1); Sodium 142 mEq/L (136-145); eGFR For Non-African Americans > 60 (> 60)
[2018-08-01] MEDS ORDERED: D5% in Water 1,000 ML IVC PRN (19:30)
[2018-08-01] MEDS ORDERED: Dextrose 4 GM Chewable Tablets PO PRN ×2 (19:30)
[2018-08-01] MEDS ORDERED: Potassium Phosphate 44 MEQ in 0.9 % Sodium Chloride 250 ML IVPB PRN (19:30)
[2018-08-01] MEDS ORDERED: Ondansetron 4 MG/2 ML VIAL IVP PRN (19:30)
[2018-08-01] MEDS ORDERED: Dextrose Gel 15 GM/37.5 ML TUBE PO PRN ×2 (19:30)
[2018-08-01] MEDS ORDERED: *HR* Promethazine 25 MG/ML VIAL IVP PRN (19:30)
[2018-08-01] MEDS ORDERED: Naloxone 0.4 MG/ML INJ IVP PRN (19:30)
[2018-08-01] MEDS ORDERED: D10% in Water 500 ML IVC PRN (19:30)
[2018-08-01] MEDS ORDERED: Norepinephrine 4 MG in D5% in Water 250 ML IVC SCH (19:30)
[2018-08-01] MEDS ORDERED: *HR* Dextrose 50 % in Water (Syg) 50 ML SYRINGE IVP PRN (19:30)
--- NOTE | 2018-08-01 20:39 | Anesthesia Evaluation PreOp ---
<Irish Torre - Last Filed: 08/01/18 20:57> Date of Encounter: 08/01/18 Time of Encounter: 20:37 - Past History Planned Operation: Ileocecectomy re: Lower GIB Cardiac History: HTN, Hyperlipidemia Pulmonary History: Smoker, COPD, Other (Pt intubated & sedated in ICU after GIB accompanied by Respiratory Failure 07/28-08/01/2018) PHYSICIAN'S ASSISTANT History: TIA (Pt denies TIA) Other Medical History: Bleeding (GIB this admission), Thyroid, GERD, Other (Pt had colonoscopy previously which showed precancerous lesion at ileocecal junction - lesion deemed unresectable per surgery, and pt recommended to undergo ileocecal colectomy. Hx Basal Cell Ca) Anesthesia History: No Prior Anesthetic Complications, Past Anesthesia (C- section, Sa[place], Colectomy 2000, Herniorhaphy, Tubal ligation), Difficult Airway Alcohol Use: none Drug use: none Medications and Allergies Clopidogrel Bisulfate [Plavix] 75 mg PO DAILY 10/26/15 [History] Levothyroxine [Synthroid] 125 mcg PO QAM 10/26/15 [History] Potassium Chloride [K-Tab ER] 20 meq PO BID 10/26/15 [History] Ergocalciferol (VITAMIN D2) [Vitamin D] 400 unit PO DAILY 03/27/16 [History] Lovastatin 10 mg PO DAILY 11/30/17 [History] Losartan/HCTZ [Hyzaar 50-12.5 Tablet] 1 each PO DAILY 07/26/18 [History] Allergy/AdvReac Type Severity Reaction Status Date / Time No Known Allergies Allergy Verified 11/30/17 22:01 - Meds/Allergy Pre-op Review Medications Reviewed: Yes Allergies Reviewed: Yes Beta Blockers on Current Med List: No Anesthesia Results - Labs 08/01/18 16:43 08/01/18 16:43 Laboratory Tests 07/26/18 07/28/18 08/01/18 13:50 05:17 16:43 PT 13.5 H INR 1.2 Est GFR (Non-Af Amer) > 60 Calcium 8.3 L Phosphorus 2.9 Magnesium 2.0 Stool Occult Bld Scrn Positive A Laboratory Results Impressions Echocardiogram 07/27/18 08:00 Impressions: LVEF 65-70%. Normal LV chamber size and function. Basal sigmoid septum. Normal right ventricular structure and function. Mild tricuspid regurgitation. No pulmonary hypertension. Left Ventricular Wall Motion: Rest Echo Findings All wall segments showed normal motion. Findings: Study Quality * Technically adequate exam. ECG Findings * Normal sinus rhythm. Left Ventricle * LVEF 65-70%. * Normal LV chamber size and function. * Basal sigmoid septum. * Normal left ventricular diastolic function. Right Ventricle * Normal right ventricular structure and function. Left Atrium * Normal left atrial size. Right Atrium * Normal right atrial size. Interatrial Septum * Interatrial septum not well evaluated. * No evidence of PFO by color Doppler. Aortic Valve * Aortic valve not well visualized. * No aortic stenosis. * No aortic regurgitation. Mitral Valve * Mild mitral annular calcification * Trace mitral regurgitation. * No mitral stenosis. Tricuspid Valve * Normal tricuspid valve structure. * No tricuspid stenosis. * Mild tricuspid regurgitation. * Estimated RVSP is 22 mmHg. * Estimated RA pressure is 3 mmHg. * No pulmonary hypertension. Pulmonic Valve * Pulmonic valve is not well visualized. * No pulmonic stenosis. * No pulmonic regurgitation. Aorta * Normally sized aortic root. Pericardium * The pericardium appears normal. IVC * Normal IVC dimensions and inspiratory collapse. - Imaging EKG: report reviewed (65bpm) Chest x-ray: report reviewed (FINDINGS: 07/28/2018 - Tip of the endotracheal tube terminates 3.9 cm above the rashmi. Lungs are hypoaerated with vascular crowding. Stable heart size and mediastinal contours.) Anesthesia Exam Vital Signs Temp Pulse Resp BP Pulse Ox 08/01/18 20:00 72 14 142/74 96 08/01/18 19:00 76 16 115/91 98 08/01/18 18:00 73 14 135/72 96 08/01/18 16:25 98.4 F 08/01/18 14:00 72 14 92/60 96 08/01/18 12:00 66 14 93/47 98 08/01/18 11:40 98.8 F 08/01/18 10:00 66 12 102/60 98 08/01/18 09:00 73 12 104/41 98 08/01/18 07:55 79 12 101/44 98 08/01/18 07:40 98.1 F 08/01/18 07:00 71 14 102/38 99 08/01/18 06:00 67 14 123/49 94 08/01/18 05:00 62 14 105/52 95 08/01/18 04:00 98.3 F 84 18 115/54 92 08/01/18 03:00 92 18 114/48 93 08/01/18 02:00 97 20 116/47 93 08/01/18 01:00 66 20 108/49 90 08/01/18 00:28 98.4 F 08/01/18 00:00 87 20 102/48 92 07/31/18 23:00 68 20 105/49 97 07/31/18 22:00 79 18 101/56 95 07/31/18 21:00 86 16 109/64 100 Intake and Output 08/01/18 08/01/18 08/01/18 07:59 15:59 23:59 Intake Total 350 / 350 1564 / 1564 400 / 400 Output Total 1325 / 1325 300 / 300 500 / 500 Balance -975 / -975 1264 / 1264 -100 / -100 Intake: IV Fluids 350 / 350 1564 / 1564 400 / 400 Lactated Ringers 1,000 ML @ 999 1000 / 1000 mls/hr IVC .Q1H1M [facility] Rx#: [id number] Unasyn 3,000 mg In 0.9 % Sodium 100 / 100 Chloride (Mini-Bag +) 100 ML @ 200 mls/hr IVPB Q6HR [facility] Rx#: [id number] Unasyn 3,000 MG In 0.9 % Sodium 100 / 100 Chloride (Mini-Bag +) 100 ML @ 200 mls/hr IVPB Q6HR [facility] Rx#: [id number] Intralipid 20% 250 ML @ 21 mls/ 250 / 250 hr IVPB DAILY@1700 [facility] Rx#: [id number] Magnesium Sulfate 2 GM In 0.9 % 104 / 104 Sodium Chloride 100 ML @ 52 mls/hr IVPB Q6H PRN Rx#: [id number] Potassium Chloride 20 mEq/100 100 / 100 100 / 100 300 / 300 mL 40 meq In 200 ml @ 100 mls/ hr IVPB Q1H PRN Rx#:[id number] Potassium Phosphate 44 MEQ In 0 260 / 260 .9 % Sodium Chloride 250 ML @ 40 mls/hr IVPB Q10H PRN Rx#: [id number] Oral 0 / 0 Output: Catheter 1325 / 1325 300 / 300 500 / 500 Other: Stool Size Large Small Copious Stool Consistency liquid loose liquid soft Stool Characteristics Tarry Stool Color Black Black Dark Red Blood Dark Red Blood Weight 83.9 kg 84 kg Blood Glucose* 135 130 147 Patient Weight 08/01/18 23:59 Weight 84 kg Height: 5'3" Weight: 185# BMI = 33 - HEENT Pupil (Motor): Pupils equal, EOMI - PHYSICIAN'S ASSISTANT LOC: Oriented PHYSICIAN'S ASSISTANT Motor: Normal RUE, Normal LUE, Normal RLE, Normal LLE, Normal Face PHYSICIAN'S ASSISTANT Sensory: Normal: RUE, LUE, RLE, LLE, Face - Cardiac Rhythm: Regular Murmur: None - Pulmonary Breath Sounds: bilateral Clear Respiratory Effort: Symmetrical Anesthesia Assess/Plan ASA Score: 4 Anesthetic Plan: General Monitoring Plan: Standard Monitors Recovery Plan: PACU <Trung Cancino - Last Filed: 08/02/18 10:03> Date of Encounter: 08/02/18 - Past History Planned Operation: EGD/Colonoscopy Anesthesia Results - Labs 08/02/18 03:40 08/02/18 03:40 Anesthesia Exam Vital Signs/O2 Sat/Glucose, Most Recent Temp Pulse Resp BP Pulse Ox 98.0 F 68 18 106/50 98 08/02/18 08:37 08/02/18 07:36 08/02/18 07:00 08/02/18 07:00 08/02/18 07:00 Blood Glucose* 133 NPO (# of Hours): 8 Pain Scale: 0 Pain Scale Used: Numeric (1 - 10) - HEENT Mallampati: II Teeth: Normal, Missing Denture Type: Upper: Complete Oral Opening: Greater than 3 Anesthesia Assess/Plan ASA Score: 4 Level of consciousness: Cooperative, Oriented, Tranquil Anesthetic Plan: MAC Monitoring Plan: Standard Monitors
[2018-08-01] MEDS: Pantoprazole 40 MG VIAL IVP SCH (21:02)
[2018-08-01] MEDS: Ampicillin/Sulbactam 3,000 MG in 0.9 % Sodium Chloride Mini Bag 100 ML IVPB SCH (23:27)
[2018-08-01] MEDS ORDERED: *HR* Morphine 2 MG/ML SYRINGE IVP ONE (23:51)
[2018-08-02 03:58] LABS: Basophils % 0.3 %; Eosinophils # 0.2 K/mcL (0.0-0.6); Eosinophils % 3.1 %; Hematocrit 24.8 % (35.3-44.9); Hemoglobin 8.1 g/dL (11.5-15.4); Immature Granulocytes % 0.5 % (0-4); Lymphocytes # 1.3 K/mcL (0.6-4.6); Lymphocytes % 17.1 %; Mean Corpuscular HGB Conc 32.7 g/dL (31.6-35.5); Mean Corpuscular Hemoglobin 30.7 pg (28.0-33.3); Mean Corpuscular Volume 93.9 fL (83.0-100.0); Mean Platelet Volume 10.3 fL (9.4-12.4); Monocytes # 0.7 K/mcL (0.0-1.3); Monocytes % 9.9 %; Neutrophils # 5.1 K/mcL (1.6-8.9); Platelet Count 243 K/mcL (140-400); Red Blood Count 2.64 M/mcL (3.82-4.97); Red Cell Distribution Width 14.3 % (11.5-14.5); Segmented Neutrophils % 69.1 %
[2018-08-02 04:18] LABS: BUN/Creatinine Ratio 27 (6-26); Blood Urea Nitrogen 12 mg/dL (8-23); Calcium 8.2 mg/dL (8.6-10.3); Carbon Dioxide 29 mEq/L (23-29); Chloride 106 mEq/L (98-107); Glucose 127 mg/dL (70-105); Osmolality,Calculated 293 (280-300); Phosphorous 3.8 mg/dL (2.7-4.5); Potassium 3.9 mEq/L (3.5-5.1); Sodium 141 mEq/L (136-145); eGFR For Non-African Americans > 60 (> 60)
[2018-08-02] MEDS: Ampicillin/Sulbactam 3,000 MG in 0.9 % Sodium Chloride Mini Bag 100 ML IVPB SCH ×4 (05:43→17:41)
[2018-08-02] MEDS: Insulin LISPRO 300 UNITS/3 ML VIAL SQ SCH ×3 (06:07→18:15)
[2018-08-02] MEDS ORDERED: Levothyroxine Sodium 100 MCG VIAL IVP SCH (06:30)
[2018-08-02] MEDS: Artificial Tears SOLN 15 ML BOTTLE BOTH EYES SCH (06:42)
--- NOTE | 2018-08-02 07:48 | Internal Med Progress Note ---
Hospitalist Progress Note - Encounter Date of Encounter: 08/02/18 Time of Encounter: 07:21 - Subjective Interval History: Patient seen and examined this morning. No acute overnight events. Awake and alert. Complains of feeling week and Lt arm pain. Has rectal tube with black stool and Lt femoral TLC. Denies any other pain. - Exam Vitals: Temp Pulse Resp BP Pulse Ox 98.1 F 76 14 105/59 99 08/02/18 06:44 08/02/18 04:00 08/02/18 04:00 08/02/18 04:00 08/02/18 04:00 Exam: General: In no acute distress. Conversant. Obese. Respiratory exam: CTAB. no accessory muscle use, rales, rhonchi, wheezes Cardiovascular exam: RRR, +S1, +S2. no murmur, gallop, rubs. GI/Abdominal exam: Non-tender, Non-distended, normal bowel sounds, soft, no peritoneal signs. LT femoral TLC and retal tube placement. Extremities exam:trace pedal edema, warm, pulses palpable in b/l lower extremities. no calf tenderness Neurological exam: CN II-XII intact, AO X3, generalized weakness, no focal deficits. no, facial droop, speech deficit Skin exam: Lt cephalic vein thrombosis and tenderness with induration. - Assessment and Plan (1) Hypothyroid Current Visit: No Status: Chronic (2) DVT prophylaxis Current Visit: No Status: Acute (3) Lower gastrointestinal hemorrhage Current Visit: Yes Status: Acute (4) Acute respiratory failure Current Visit: Yes Status: Acute (5) Hypotension Current Visit: Yes Status: Acute (6) UTI (urinary tract infection) Current Visit: Yes Status: Acute - Summary of Assessment and Plan Summary of Assessment and Plan: Lower GI Bleed - History of sigmoid colectomy - Unclear source after CTA , RBC scan. Nuclear scan without evidence of active bleed. - s/p 4 PRBC - Patient was intubated to protect her airway and altered mental status with concern of active GI bleed. - During ICU stay she was treated for sepsis initially with metronidazole and zosyn intrabdominal/Lung source. Urine culture positive for Klebsiella. Currently on Unasyn. Also was put on Norepi for hypotension. Extubated on 07/31/18 and off pressors - Plan for EGD/Colonoscopy today by surgery. NPO for now. Will replace TLC as put under emergency condition and get PICC line for TPN. - monitor H&H. Transfuse if <7. Plavix on hold. DVT left arm brachial - Has acute thrombus on lt cephalic and Lt brachial. NO DVT on LE - pain control with tylenol and warm compress Colon polyp - Unresectable cecal polyp - plan for open ileocectomy by Dr Francois Episode of syncope - likely due to lower GI bleeding caused hypovolemic status. - CT head and C-spine unremarkable - no arrhythmia on tele - Echo unremarkable - Duplex carotid shows rt distal ICA 60-79% stenosis. Unlikely related to stenosis per vascular surgery. Outpatient followup. hypthyroidism - c/w levothyroxin HTN - hold antihypertensives. - Time Spent with Patient Total time spent is greater than 50% in coordination of care (as documented) at patient's floor/unit and/or counseling patient: Internal Medicine: Result - Labs CBC & Chem 7: 08/02/18 03:40 08/02/18 03:40 Labs: Short CBC 08/01/18 08/01/18 08/02/18 Range/Units 10:00 16:43 03:40 WBC 7.6 7.7 7.4 (4.3-11.1) K/mcL Hgb 8.4 L 8.3 L 8.1 L (11.5-15.4) g/dL Hct 25.3 L 25.3 L 24.8 L (35.3-44.9) % Plt Count 204 219 243 (140-400) K/mcL Neutrophils # 5.2 5.1 (1.6-8.9) K/mcL BMP 08/01/18 08/02/18 16:43 03:40 Sodium 142 141 Potassium 3.5 3.9 Chloride 107 106 Carbon Dioxide 30 H 29 BUN 11 12 Creatinine 0.42 L 0.44 L Glucose 125 H 127 H Calcium 8.3 L 8.2 L - ABG Interpretation ABG results: ABG ABG pH 7.46 pH Units (7.32-7.45) H 07/31/18 05:11 ABG pCO2 33 mmHg (35-45) L 07/31/18 05:11 ABG pO2 63 mmHg (85-104) L 07/31/18 05:11 ABG O2 Saturation 93 % (95-98) L 07/31/18 05:11 PT/INR, D-dimer PT 13.5 Seconds (9.4-12.1) H 07/28/18 05:17 Consult Discharge Plan - Plan Referrals: Xavier Alvarez DO [Primary Care Provider] - (1) Hypothyroid Qualifiers: Hypothyroidism type: postablative Qualified Code(s): E89.0 - Postprocedural hypothyroidism (4) Acute respiratory failure Qualifiers: Respiratory failure complication: hypoxia Qualified Code(s): J96.01 - Acute respiratory failure with hypoxia (5) Hypotension Qualifiers: Hypotension type: unspecified hypotension type Qualified Code(s): I95.9 - Hypotension, unspecified
[2018-08-02] MEDS: Pantoprazole 40 MG VIAL IVP SCH ×2 (08:51→20:25)
[2018-08-02] MEDS ORDERED: Propofol 500 MG/50 ML INFUS..BTL ONE (09:44)
[2018-08-02] MEDS ORDERED: *HR* Midazolam HCl 2 MG/2 ML VIAL ONE (10:07)
[2018-08-02] MEDS: Tetracaine/Benzocaine/Butamben 1 SPRAY AEROSOL MM ONE ×2 (10:12→10:17)
[2018-08-02] MEDS: Simethicone 40 MG/0.6 ML MLS IR ONE ×2 (10:12→10:18)
[2018-08-02] MEDS ORDERED: 0.9 % Sodium Chloride 1,000 ML IVC SCH (10:30)
[2018-08-02] MEDS ORDERED: *HR* Dextrose 50 % in Water (Syg) 50 ML SYRINGE IVP PRN (11:40)
[2018-08-02] MEDS ORDERED: *HR* Promethazine 25 MG/ML VIAL IVP PRN (11:40)
[2018-08-02] MEDS ORDERED: Potassium Phosphate 44 MEQ in 0.9 % Sodium Chloride 250 ML IVPB PRN (11:40)
[2018-08-02] MEDS ORDERED: Naloxone 0.4 MG/ML INJ IVP PRN (11:40)
[2018-08-02] MEDS ORDERED: D10% in Water 500 ML IVC PRN (11:40)
[2018-08-02] MEDS ORDERED: Dextrose Gel 15 GM/37.5 ML TUBE PO PRN ×2 (11:40)
[2018-08-02] MEDS ORDERED: Dextrose 4 GM Chewable Tablets PO PRN ×2 (11:40)
[2018-08-02] MEDS ORDERED: Clinimix E 5%-15% SOLUTION 2,000 ML with MVI, adult with vitamin K 10 ML IVC SCH ×2 (11:40→17:00)
[2018-08-02] MEDS ORDERED: Norepinephrine 4 MG in D5% in Water 250 ML IVC SCH (11:40)
[2018-08-02] MEDS ORDERED: Ondansetron 4 MG/2 ML VIAL IVP PRN (11:40)
[2018-08-02] MEDS ORDERED: D5% in Water 1,000 ML IVC PRN (11:40)
[2018-08-02] MEDS ORDERED: cefOXitin 1,000 MG, Sodium Chloride IRRigation 1,000 ML IR ONE ×3 (12:10)
[2018-08-02] MEDS ORDERED: Acetaminophen IV 1,000 MG/100 ML INFUS..BTL IVPB ONE ×2 (12:23→15:11)
[2018-08-02] MEDS: 0.9 % Sodium Chloride 1,000 ML IVC SCH (12:37)
[2018-08-02] MEDS ORDERED: *HR* FentaNYL (PF) 100 MCG/2 ML VIAL IVP ONE (15:10)
[2018-08-02 18:33] LABS: Hematocrit 24.2 % (35.3-44.9); Hemoglobin 7.7 g/dL (11.5-15.4)
[2018-08-03] MEDS: Ampicillin/Sulbactam 3,000 MG in 0.9 % Sodium Chloride Mini Bag 100 ML IVPB SCH ×3 (00:30→12:09)
[2018-08-03] MEDS: Insulin LISPRO 300 UNITS/3 ML VIAL SQ SCH ×3 (00:31→12:04)
[2018-08-03] MEDS ORDERED: *HR* Morphine 2 MG/ML SYRINGE IVP ONE (03:40)
[2018-08-03 04:18] LABS: Basophils % 0.3 %; Eosinophils # 0.3 K/mcL (0.0-0.6); Eosinophils % 4.3 %; Hematocrit 24.5 % (35.3-44.9); Lymphocytes # 1.5 K/mcL (0.6-4.6); Lymphocytes % 21.8 %; Mean Corpuscular HGB Conc 32.7 g/dL (31.6-35.5); Mean Corpuscular Hemoglobin 31.4 pg (28.0-33.3); Mean Corpuscular Volume 96.1 fL (83.0-100.0); Mean Platelet Volume 10.4 fL (9.4-12.4); Monocytes # 0.6 K/mcL (0.0-1.3); Monocytes % 8.9 %; Neutrophils # 4.4 K/mcL (1.6-8.9); Platelet Count 272 K/mcL (140-400); Red Blood Count 2.55 M/mcL (3.82-4.97); Red Cell Distribution Width 14.1 % (11.5-14.5); Segmented Neutrophils % 63.7 %
[2018-08-03 04:32] LABS: BUN/Creatinine Ratio 36 (6-26); Blood Urea Nitrogen 16 mg/dL (8-23); Calcium 8.3 mg/dL (8.6-10.3); Carbon Dioxide 29 mEq/L (23-29); Chloride 105 mEq/L (98-107); Glucose 118 mg/dL (70-105); Osmolality,Calculated 288 (280-300); Potassium 3.6 mEq/L (3.5-5.1); Sodium 138 mEq/L (136-145); eGFR For Non-African Americans > 60 (> 60)
[2018-08-03 04:33] LABS: Magnesium 1.9 mg/dL (1.6-2.6); Phosphorous 3.4 mg/dL (2.7-4.5)
[2018-08-03] MEDS ORDERED: Levothyroxine Sodium 100 MCG VIAL IVP SCH (06:30)
--- NOTE | 2018-08-03 06:54 | General Surgery Progress Note ---
Addendum entered and electronically signed by Tiana Haddad 08/03/18 10:58: EGD showed 3cm gastric polyp with ulceration and stigmata of recent bleeding. Likely source of GI bleed. Polyp was removed and clipped to prevent further bleeding. Original Note: Date of Encounter: 08/03/18 Time of Encounter: 06:30 - Assessment and Plan (1) Lower gastrointestinal hemorrhage Current Visit: Yes Status: Acute CTA abd showed no source of bleed RBC scan showed no active GI bleed NG showed no bloody output No active bleeding for several days. Hb is stable. EGD and colonoscopy were both negative. No bleeding, no cecal polyp. Surgery will sign off at this time. Please re-consult prn. (2) Colon polyp Current Visit: Yes Status: Ruled-out Unresectable cecal polyp is ruled out by colonoscopy. No cecal polyp was found. Open ileocectomy by Dr Francois is cancelled Surgery will sign off at this time Qualifiers: Colon polyp type: unspecified Colon location: ascending Qualified Code(s): D12.2 - Benign neoplasm of ascending colon (3) History of open sigmoidectomy Current Visit: Yes Status: Chronic History of sigmoid colectomy Subjective Narrative: Patient seen and examined. No acute events overnight. Patient is resting comfortably in bed. Rectal tube and urinary catheter were removed yesterday. Nurse reports rectal tube yesterday showed black stool. No bowel movement since removal of rectal tube. Patient states shes doing good. Denies abdominal pain, nausea/vomiting, or fever. Reports bilateral arm pain. States right arm pain started at same time as left arm pain, but now is better. Denies any other complaints. Objective Vital Signs - Last 8 Hours Temp Pulse Resp BP Pulse Ox 08/03/18 06:00 56 20 99/53 93 08/03/18 04:37 98.6 F 08/03/18 04:04 61 18 102/55 94 08/03/18 00:35 55 20 103/51 98 08/03/18 00:13 98.1 F Intake and Output 08/02/18 08/02/18 08/03/18 15:59 23:59 07:59 Intake Total 450 / 450 200 / 200 350 / 350 Output Total 550 / 550 400 / 400 400 / 400 Balance -100 / -100 -200 / -200 -50 / -50 Intake: IV Fluids 450 / 450 200 / 200 350 / 350 0.9 % Sodium Chloride 1,000 ML 250 / 250 @ 50 mls/hr IVC .Q20H [facility] Rx#: [id number] Ofirmev 1,000 mg/100 ml 1,000 100 / 100 100 / 100 mg In 100 ml @ 400 mls/hr IVPB ONCE ONE Rx#:[id number] Unasyn 3,000 MG In 0.9 % Sodium 100 / 100 100 / 100 100 / 100 Chloride (Mini-Bag +) 100 ML @ 200 mls/hr IVPB Q6HR [facility] Rx#: [id number] Intralipid 20% 250 ML @ 21 mls/ 250 / 250 hr IVPB DAILY@1700 [facility] Rx#: [id number] Oral 0 / 0 Output: Urine 400 / 400 400 / 400 Rectal Tube 200 / 200 Catheter 350 / 350 Other: Weight 85.5 kg Blood Glucose* 108 119 118 Patient Weight 08/03/18 23:59 Weight 85.5 kg - Additional Exam VITAL SIGNS: Reviewed. See [facility] GENERAL: In no acute distress. HEENT: Normocephalic, atraumatic, pupils are equal and reactive, pupils are equal and reactive, extraocular motions intact, oral mucosa pink and moist. CHEST/RESPIRATORY: The thorax is free from signs of trauma. Lung sounds: clear to auscultation, normal respiratory effort CARDIAC: Regular rate and rhythm. Normal S1 and S2, without murmurs, gallops, or rubs. VASCULAR: No Edema. ABDOMEN: Soft, nondistended, nontender, bowel sounds present MUSCULOSKELETAL: Good range of motion of all major joints. Lower extremities without clubbing, cyanosis or edema. Left upper extremity is warm and swollen. Right upper extremity appears normal. NEUROLOGIC EXAM: Alert and oriented x 3. Speech normal. Follows commands. PSYCHIATRIC: Mood normal. SKIN: No rash or lesions. - Labs 08/03/18 03:37 08/03/18 03:37 Diabetes panel 08/03/18 Range/Units 03:37 Sodium 138 (136-145) mEq/L Potassium 3.6 (3.5-5.1) mEq/L Chloride 105 (98-107) mEq/L Carbon Dioxide 29 (23-29) mEq/L BUN 16 (8-23) mg/dL Creatinine 0.45 L (0.60-1.20) mg/dL Glucose 118 H (70-105) mg/dL Calcium 8.3 L (8.6-10.3) mg/dL Calcium panel 08/03/18 08/03/18 Range/Units 03:37 03:37 Calcium 8.3 L (8.6-10.3) mg/dL Phosphorus 3.4 (2.7-4.5) mg/dL Pituitary panel 08/03/18 Range/Units 03:37 Sodium 138 (136-145) mEq/L Potassium 3.6 (3.5-5.1) mEq/L Chloride 105 (98-107) mEq/L Carbon Dioxide 29 (23-29) mEq/L BUN 16 (8-23) mg/dL Creatinine 0.45 L (0.60-1.20) mg/dL Glucose 118 H (70-105) mg/dL Calcium 8.3 L (8.6-10.3) mg/dL Adrenal panel 08/03/18 Range/Units 03:37 Sodium 138 (136-145) mEq/L Potassium 3.6 (3.5-5.1) mEq/L Chloride 105 (98-107) mEq/L Carbon Dioxide 29 (23-29) mEq/L BUN 16 (8-23) mg/dL Creatinine 0.45 L (0.60-1.20) mg/dL Glucose 118 H (70-105) mg/dL Calcium 8.3 L (8.6-10.3) mg/dL Consult Discharge Plan - Plan Referrals: Xavier Alvarez DO [Primary Care Provider] -
[2018-08-03] MEDS: 0.9 % Sodium Chloride 1,000 ML IVC SCH (09:10)
[2018-08-03] MEDS: Pantoprazole 40 MG VIAL IVP SCH (09:11)
--- NOTE | 2018-08-03 12:43 | Internal Med Progress Note ---
Hospitalist Progress Note - Encounter Date of Encounter: 08/03/18 Time of Encounter: 11:03 - Subjective Interval History: Patient seen and examined this morning. No acute overnight events. Much more awake and alert. still with some weakness. Complains Lt arm pain. Also some soreness on Rt forearm. Rectal tube removed. Denies any other pain. - Exam Vitals: Temp Pulse Resp BP Pulse Ox 98.0 F 63 16 112/55 100 08/03/18 12:26 08/03/18 12:08/03/18 12:08/03/18 12:08/03/18 12: Exam: General: In no acute distress. Conversant. Obese. Respiratory exam: crackles at base. no accessory muscle use, rales, rhonchi, wheezes Cardiovascular exam: RRR, +S1, +S2. no murmur, gallop, rubs. GI/Abdominal exam: Non-tender, Non-distended, normal bowel sounds, soft, no peritoneal signs. Extremities exam: 1+ pedal edema, warm, pulses palpable in b/l lower extremities. no calf tenderness. mild rt arm soreness. Neurological exam: CN II-XII intact, AO X3, generalized weakness, no focal deficits. no, facial droop, speech deficit Skin exam: Lt cephalic vein thrombosis and tenderness with induration. - Assessment and Plan (1) Hypothyroid Current Visit: No Status: Chronic (2) DVT prophylaxis Current Visit: No Status: Acute (3) Lower gastrointestinal hemorrhage Current Visit: Yes Status: Acute (4) Acute respiratory failure Current Visit: Yes Status: Acute (5) Hypotension Current Visit: Yes Status: Acute (6) UTI (urinary tract infection) Current Visit: Yes Status: Acute - Summary of Assessment and Plan Summary of Assessment and Plan: Lower GI Bleed - History of sigmoid colectomy - No source after CTA , RBC scan. Nuclear scan without evidence of active bleed. - s/p 4 PRBC - EGD showed gastric polp with stigmata of recent bleed. likely the source. resected. f/u Biopsy - Colonoscopy unremarkable. Tolerated clear liquid. Remove picc line, stop TPN and progress diet. - monitor H&H. Plavix on hold. UTI - Was on Zosyn and then on Unasyn. Today is day 6. Will stop unasyn - Was on TPN and TKO fluid. Now with some crackles and edema. Stop IVF and TPN. May give lasix if BP stable. DVT - on left arm brachial and superficial vein thrombosis. Like related to IV. - NO DVT on LE. Has some Rt forearm pain. Obtain US to r/o DVT on Rt arm - pain control with tylenol and warm compress. NO indication for anticoagulation. Also with recent GI bleeding. Colon polyp - Unresectable cecal polyp not visualized on colonoscopy - No surgical indication of ileocectomy per surgery Episode of syncope - likely due to lower GI bleeding caused hypovolemic status. - CT head and C-spine unremarkable - no arrhythmia on tele - Echo unremarkable - Duplex carotid shows rt distal ICA 60-79% stenosis. Unlikely related to stenosis per vascular surgery. Outpatient followup. hypthyroidism - c/w levothyroxin HTN - BP on lower end - hold antihypertensives. PT/OT consulted - Time Spent with Patient Total time spent is greater than 50% in coordination of care (as documented) at patient's floor/unit and/or counseling patient: Internal Medicine: Result - Labs CBC & Chem 7: 08/03/18 03:37 08/03/18 03:37 Labs: Short CBC 08/02/18 08/03/18 Range/Units 18:15 03:37 WBC 6.9 (4.3-11.1) K/mcL Hgb 7.7 L 8.0 L (11.5-15.4) g/dL Hct 24.2 L 24.5 L (35.3-44.9) % Plt Count 272 (140-400) K/mcL Neutrophils # 4.4 (1.6-8.9) K/mcL BMP 08/03/18 03:37 Sodium 138 Potassium 3.6 Chloride 105 Carbon Dioxide 29 BUN 16 Creatinine 0.45 L Glucose 118 H Calcium 8.3 L - ABG Interpretation ABG results: ABG ABG pH 7.46 pH Units (7.32-7.45) H 07/31/18 05:11 ABG pCO2 33 mmHg (35-45) L 07/31/18 05:11 ABG pO2 63 mmHg (85-104) L 07/31/18 05:11 ABG O2 Saturation 93 % (95-98) L 07/31/18 05:11 PT/INR, D-dimer PT 13.5 Seconds (9.4-12.1) H 07/28/18 05:17 - Impressions Impressions KUB X-Ray 07/30/18 14:31 IMPRESSION: Orogastric tube is coiled within the gastric fundus, with the side port projecting over the gastric fundus and tip projecting over the GE junction. Consider retracting. D/ / 07/30/2018 15:03:05 Glendy Zhu MD / karolina Interpreting Provider: Glendy Zhu MD Consult Discharge Plan - Plan Referrals: Xavier Alvarez DO [Primary Care Provider] - (1) Hypothyroid Qualifiers: Hypothyroidism type: postablative Qualified Code(s): E89.0 - Postprocedural hypothyroidism (4) Acute respiratory failure Qualifiers: Respiratory failure complication: hypoxia Qualified Code(s): J96.01 - Acute respiratory failure with hypoxia (5) Hypotension Qualifiers: Hypotension type: unspecified hypotension type Qualified Code(s): I95.9 - Hypotension, unspecified
[2018-08-03] MEDS ORDERED: 0.9 % Sodium Chloride 500 ML IVC ONE (23:41)
[2018-08-04] MEDS ORDERED: 0.9 % Sodium Chloride 500 ML IVC ONE (01:02)
[2018-08-04 06:52] LABS: Hematocrit 24.2 % (35.3-44.9)
[2018-08-04] MEDS ORDERED: Pantoprazole 40 MG VIAL IVP SCH (09:00)
--- NOTE | 2018-08-04 11:43 | Discharge Summary ---
- NOTES TO OUTPATIENT PROVIDER Notes to Outpatient Provider: Follow-up hemoglobin level in 5-6 days. Patient's Plavix and antihypertensive held for now given recent bleed. Orders not resulted at time of discharge: Pending orders 08/02/18 10:38 Surgical Pathology [PTH] Routine Date of Encounter: 08/04/18 Time of Encounter: 11:37 - Discharge Diagnosis (1) Hypothyroid Priority: Secondary Status: Chronic Qualifiers: Hypothyroidism type: postablative Qualified Code(s): E89.0 - Postprocedural hypothyroidism (2) DVT prophylaxis Priority: Secondary Status: Acute (3) Lower gastrointestinal hemorrhage Priority: Primary Status: Acute (4) Acute respiratory failure Priority: Secondary Status: Acute Qualifiers: Respiratory failure complication: hypoxia Qualified Code(s): J96.01 - Acute respiratory failure with hypoxia (5) Hypotension Priority: Secondary Status: Acute Qualifiers: Hypotension type: hypotension due to hypovolemia Qualified Code(s): I95.89 - Other hypotension; E86.1 - Hypovolemia (6) UTI (urinary tract infection) Priority: Secondary Status: Acute Qualifiers: Qualified Code(s): N39.0 - Urinary tract infection, site not specified (7) Episode of syncope Priority: Primary Status: Acute Qualifiers: Syncope type: unspecified Qualified Code(s): R55 - Syncope and collapse (8) Sepsis Priority: Secondary Status: Acute Qualifiers: Sepsis type: sepsis due to unspecified organism Qualified Code(s): A41.9 - Sepsis, unspecified organism Hospital course: Ms. Perez is a 67 year old female PMHx of COPD, GERD, hyperlipidemia, hypertension, thyroid disease, TIA, precancerous lesion at small bowel/colon junction came to ER with rectal bleeding and dark bloody stool. She was on plavix for CVA. She had history of colectomy about 18 yrs ago. She also had episode of a syncopal episode. Patient was seen by surgery to whom patient was known wit history of unresectable cecal polyp and there was plan for ileocecectomy on 08/02/18. Patient was planned to have colonoscopy by surgery. Syncope was not thought to be from carotid per vascular surgery. Response was called when patient had another episode of syncope with severe abdominal pain and bloody bowel movements. Patient had CT angiogram of abdomen and pelvis did not reveal any evidence of intra-abdominal bleeding. Patient was transferred to ICU and intubated to protect her airways subsequently. Patient had a nuclear scan which did not show any source of bleeding. She received 4 units of blood transfusions. She was noted to have hypotension Patient was thought to have sepsis and was started on Zosyn and metronidazole for intra-abdominal/lung source. UTI came positive and patient was switched to Unasyn based on cultures. Patient was started on TPN during her ICU stay through her TLC that was placed during rapid response. Patient NGT did not show any bloody output. Patient was kept on norepinephrine for hypotension was extubated on 07/31/18. Patient was off vasopressors and plan for EGD and colonoscopy was made. Patient colonoscopy did not show any abnormality however EGD did show 2 cm gastric polyp with ulceration and stigmata of recent bleeding in the gastric antrum which was removed with hot snare and 2 hemostatic clips were successfully placed. The gastric polyp was felt to be source of her bleeding. Patient's diet was progressed which she tolerated well. Patient's hemoglobin remained stable and she did not have any further lower GI bleeding. She had been on TPN which was stopped. She was also found to have left brachial DVT in left cephalic vein thrombosis in ICU however no anticoagulation started given absence of evidence as well as recent bleeding. Patient finished her course of antibiotics for UTI. No surgery was planned further given absence of cecal polyp on colonoscopy. She still feels weak and physical therapy recommended SNF placement for further rehabilitation. Patient would be discharged to SNF today to continue further rehabilitation. Should be discharged on pantoprazole. I asked to hold her home antihypertensives given her blood pressure being in the 90s systolic however stable for many days. She was also given iron supplement on discharge. Discharge discussed with: patient, nurse - Time Spent with Patient Total time spent providing and/or coordinating discharge services: Greater than 30 minutes (43) - Discharge Medications Prescriptions: New Ferrous Sulfate 325 mg PO DAILY 30 Days #30 tablet Pantoprazole Sodium 40 mg PO DAILY 30 Days #30 tablet. Continue Levothyroxine [Synthroid] 125 mcg PO QAM Ergocalciferol (VITAMIN D2) [Vitamin D] 400 unit PO DAILY Lovastatin 10 mg PO DAILY Discontinued Potassium Chloride [K-Tab ER] 20 meq PO BID Clopidogrel Bisulfate [Plavix] 75 mg PO DAILY Losartan/HCTZ [Hyzaar 50-12.5 Tablet] 1 each PO DAILY Home Medications: Levothyroxine [Synthroid] 125 mcg PO QAM 10/26/15 [History] Ergocalciferol (VITAMIN D2) [Vitamin D] 400 unit PO DAILY 03/27/16 [History] Lovastatin 10 mg PO DAILY 11/30/17 [History] Ferrous Sulfate 325 mg PO DAILY 30 Days #30 tablet 08/04/18 [Rx] Pantoprazole Sodium 40 mg PO DAILY 30 Days #30 tablet. 08/04/18 [Rx] Allergies/Adverse Reactions: Allergy/AdvReac Type Severity Reaction Status Date / Time No Known Allergies Allergy Verified 11/30/17 22:01 Date of admission: 07/28/18 17:33 Primary care physician: Xavier Alvarez Consults: 07/28/18 08:19 Consult to Critical Care [CONS] Stat Consulting Provider: [facility] Reason for Consult: Lower GI bleeding Call Completed: Yes Discharging clinician: Nickolas Zhu - Constitutional Vitals: Temp Pulse Resp BP Pulse Ox 98.7 F 68 16 99/63 95 08/04/18 06:33 08/04/18 06:33 08/04/18 06:33 08/04/18 06:33 08/04/18 06:33 Exam: General: In no acute distress. Conversant. Obese. Respiratory exam: CTAB. no accessory muscle use, rales, rhonchi, wheezes Cardiovascular exam: RRR, +S1, +S2. no murmur, gallop, rubs. GI/Abdominal exam: Non-tender, Non-distended, normal bowel sounds, soft, no peritoneal signs. Extremities exam: trace pedal edema, Rt arm TLC Neurological exam: CN II-XII intact, AO X3, no focal deficits. Skin exam: Lt cephalic vein thrombosis and tenderness with induration. - Patient Status Disposition: Transfer SNF Condition: Fair - Discharge Instructions Follow Up With: Xavier Alvarez DO [Primary Care Provider] - - Diet and Activity Activity: as per physical therapy
--- NOTE | 2018-08-04 14:27 | Physician Discharge Referral ---
[facility] Referral Info Institutional Level of Care: Skilled - Diagnosis (1) Hypothyroid Status: Chronic (2) DVT prophylaxis Status: Acute (3) Lower gastrointestinal hemorrhage Status: Acute (4) Acute respiratory failure Status: Acute (5) Hypotension Status: Acute (6) UTI (urinary tract infection) Status: Acute (7) Episode of syncope Status: Acute (8) Sepsis Status: Acute - Transfer Medications Prescriptions: Ferrous Sulfate 325 mg PO DAILY 30 Days #30 tablet Pantoprazole Sodium 40 mg PO DAILY 30 Days #30 tablet. Home Medications: Levothyroxine [Synthroid] 125 mcg PO QAM 10/26/15 [History] Ergocalciferol (VITAMIN D2) [Vitamin D] 400 unit PO DAILY 03/27/16 [History] Lovastatin 10 mg PO DAILY 11/30/17 [History] Ferrous Sulfate 325 mg PO DAILY 30 Days #30 tablet 08/04/18 [Rx] Pantoprazole Sodium 40 mg PO DAILY 30 Days #30 tablet. 08/04/18 [Rx] Allergies/Adverse Reactions: Allergy/AdvReac Type Severity Reaction Status Date / Time No Known Allergies Allergy Verified 11/30/17 22:01 - Respiratory Orders Smoking Cessation: Smoking cessation has been advised. For more information, call the [place] Tobacco Quit Line at 4-488-QKPRNOW. - Advance Directives Code Status: Full Code - Rehabiliation Orders Rehab Orders: Evaluation for Physical Therapy, Evaluation for Occupational Therapy - Diet Orders Regular CERTIFICATION: I certify that the transfer of the above named patient to an Extended Care Facility is necessary for the continuing treatment of the diagnosis listed. The above information is true and accurate reflection of patient's current condition. Confidential - Redisclosure prohibited without a patient's written consent.
[2018-08-04 18:02] VITALS: BP 118/73
== END 2018-08-04 17:43 | DRG 871 ==
LOC: 3ANU 11:26 → EMEROOARM 11:26 → SUATTDRO 19:02 → 3ANU 20:06 → ICNU 07-28 04:55 → SUATTDRO 07-28 17:33 → 3ANU 08-03 17:30
PROVIDERS: ADMIT Internal Medicine; ATTEND Internal Medicine